=== PATIENT | female | born 1955 | race American Indian/Alaskan Native ===

== ENCOUNTER 2016-12-26 10:34 | Outpatient (CLI) | payer MEDICAID ==
--- NOTE | 2016-12-26 11:40 | XRay Report ---
KUB: Renal calculus. The patient has left unilateral pedicle screws from L4-S1 with a spacer at L5-S1. There is a surgical mesh overlying the right lower quadrant. There is moderate fecal loading of the colon which partially obscures the regions of both kidneys. No obvious renal or other urinary tract calculus however is identified. Impression: No urinary tract calculus noted.
--- NOTE | 2016-12-27 08:20 | Ultrasound Report ---
ULTRASOUND RENAL BILATERAL HISTORY: Calculus of kidney. TECHNIQUE: transabdominal ultrasound with color Doppler interrogation. FINDINGS: The right kidney measures 10.7 x 5.7 x 5.3cm. Right renal cortex: 1.9cm. The left kidney measures 9.6 x 4.8 x 4.6cm. Left renal cortex: 1.8cm. Scans of the kidneys show normal renal contours. There is normal central calyceal clustering and good preservation of the cortical thickness. There are a few scattered subcentimeter simple cortical cysts of both kidneys. No large or complex cyst. No mass. A few scattered nonobstructing calyceal stones are also suspected in both kidneys. The largest stones appear to measure 4 mm in the midpole both kidneys. No hydronephrosis or perinephric fluid. Images of the bladder and distal ureters are unremarkable. IMPRESSION: Few scattered nonobstructing calyceal stones in both kidneys. A few scattered simple cortical cysts in both kidneys measuring less than 1 cm.
== END 2016-12-26 10:35 | disposition home or self-care (01) ==
LOC: US 10:34
PROVIDERS: ATTEND Urology
DX: N20.0 Calculus of kidney (principal); I10 Essential (primary) hypertension; J40 Bronchitis, not specified as acute or chronic; Z87.891 Personal history of nicotine dependence
CPT/HCPCS: 74000; 76770

== ENCOUNTER 2018-10-26 11:09 | Emergency (ER) | payer MEDICAID, OTHER ==
[2018-10-26] MEDS ORDERED: ZOFRAN ODT ONE ×2 (11:27)
[2018-10-26] MEDS ORDERED: ZOFRAN ODT PO ONE (11:28)
[2018-10-26 11:55] LABS: Hematocrit 33.2 % (30.3-42.9); Mean Corpuscular HGB Conc 33 % (30-34); Mean Corpuscular Volume 99 fl (79-97); Platelet Count 248 K/mm3 (140-440); Red Blood Count 3.36 M/mm3 (3.65-5.03); Red Cell Distribution Width 16.2 % (13.2-15.2)
--- NOTE | 2018-10-26 12:09 | XRay Report ---
CHEST 2 VIEWS INDICATION: Productive cough and shortness of breath. COMPARISON: None similar. FINDINGS: PA and lateral chest radiographs demonstrate normal cardiomediastinal silhouette with slightly prominent lung markings, more so centrally. Clear remainder lungs without pleural effusions or CHF. Minimal fluid or thickening along the major fissures. Right chest port tip along the distal SVC. Thoracic spondylosis. CONCLUSION: No acute chest process, as described. Thank you for the opportunity to participate in this patient's care.
[2018-10-26 12:15] LABS: BUN/Creatinine Ratio 18; Blood Urea Nitrogen 20 mg/dL (7-17); Calcium 9.7 mg/dL (8.4-10.2); Hemolysis Index 3
[2018-10-26] MEDS ORDERED: PROVENTIL IH ONE (14:17)
[2018-10-26] MEDS ORDERED: TESSALON PERLES PO ONE (14:18)
--- NOTE | 2018-10-26 14:21 | Emergency Department Report ---
ED General Adult HPI - General Chief complaint: Upper Respiratory Infection Stated complaint: BRONCHITIS/CHEST PAIN Time Seen by Provider: 10/26/18 14:03 Source: patient Mode of arrival: Ambulatory Limitations: No Limitations - History of Present Illness Initial comments: This is a 63-year-old female who has a history of breast cancer. She received her last chemotherapy in 2011. She had a lumpectomy and was found to have 1 positive node. She has been cared for by Dr. DAVIS in this area. She has also a sleep apnea physician in the area in the past. She has no history of asthma COPD. She states that she is around smoke does not smoke herself. She describes her cough as recurrent nonproductive except for occasional white "spit". She denies symptoms of reflux. She is a type II diabetic. She has received an unknown antibiotic from a family physician and a "shot". She is insulin-dependent. The patient complains of multiple allergies to include tree pollen, etc. Severity scale (0 -10): 5 - Related Data Home Medications Medication Instructions Recorded Confirmed Last Taken Allopurinol 100 mg PO DAILY 10/01/13 01/21/15 10/02/13 18:00 100 MG Amlodipine Besylate 5 mg PO DAILY 10/01/13 01/21/15 10/03/13 07:00 5 MG Anastrozole (Nf) [Arimidex (Nf)] 1 mg PO DAILY 10/01/13 01/21/15 10/02/13 1 MG Calcium Carbonate [ Calcium 600 mg PO DAILY 10/01/13 01/21/15 10/02/13 Elemental 600 mg] 600 MG Famotidine 20 mg PO BID 10/01/13 01/21/15 10/02/13 20 MG Ferrous Gluconate [Ferrous 325 mg PO BID 10/01/13 01/21/15 10/02/13 Gluconate 325 MG tab] 325 MG Fluticasone Propionate [Flonase] 1 - 2 spray INNOSTRIL DAILY 10/01/13 01/21/15 10/01/13 2 SPRAYS Gabapentin 400 mg PO TID 10/01/13 01/21/15 10/02/13 400 MG Glimepiride 2 mg PO DAILY 10/01/13 01/21/15 10/02/13 20MG Losartan [Cozaar] 100 mg PO DAILY 0301/21/15 10/03/13 07:00 100 MG Metformin HCl 500 mg PO BID 10/01/13 01/21/15 10/02/13 18:00 500 MG Multivitamin/Iron/Folic Acid 1 tab PO DAILY 10/01/13 01/21/15 10/02/13 [[employer] Women's Tab] 1 TAB Oxybutynin [Oxytrol For Women] 1 patch TRANSDERMA Q72HR 10/01/13 01/21/15 09/28/13 1 PATCH cycloSPORINE [Restasis 0.05%] 2 drops OU DAILY 10/01/13 01/21/15 10/02/13 2 DROPS Albuterol Sulfate [Albuterol 0.63% 1 - 2 puff INHALATION PRN PRN 10/02/13 01/21/15 10/01/13 NEBS] 2 PUFFS Insulin Lispro Prot/Lispro 20 units SQ BID 01/27/15 01/27/15 Unknown [HumaLOG Mix 75/25 Vial] Previous Rx's Medication Instructions Recorded Last Taken Type Ciprofloxacin [Ciprofloxacin ORAL 500 mg PO Q12H #20 ml 02/03/15 Unknown Rx LIQ] Cyclobenzaprine [Flexeril 10 MG 10 mg PO Q8H PRN #60 tablet 02/03/15 Unknown Rx TAB] Losartan [Cozaar] 100 mg PO QDAY tablet 02/03/15 Unknown Rx Naloxone 0.4 mg/1 ml [Narcan 0.4 0.1 mg IV Q2MIN PRN #60 amp 02/03/15 Unknown Rx mg/1 ml] oxyCODONE /ACETAMINOPHEN [Percocet 2 tab PO Q6H PRN #60 tablet 02/03/15 Unknown Rx 5/325 mg] Benzonatate [Tessalon Perles] 100 mg PO Q8HR #30 capsule 10/26/18 Unknown Rx Cetirizine HCl [Zyrtec] 10 mg PO DAILY #30 tablet 10/26/18 Unknown Rx Allergies Allergy/AdvReac Type Severity Reaction Status Date / Time Iodinated Contrast- Oral and Allergy Severe FACE Verified 10/03/13 11:59 IV Dye SWELLING PAPER TAPE Allergy Itching, Uncoded 01/27/15 10:40 BLISTERS SKIN ED Review of Systems ROS: Stated complaint: BRONCHITIS/CHEST PAIN Other details as noted in HPI Constitutional: denies: chills, fever Eyes: denies: eye pain, eye discharge, vision change ENT: denies: ear pain, throat pain Respiratory: cough, wheezing (states occasional). denies: shortness of breath Cardiovascular: denies: chest pain, palpitations Endocrine: no symptoms reported Gastrointestinal: denies: abdominal pain, nausea, diarrhea Genitourinary: denies: urgency, dysuria, discharge Musculoskeletal: denies: back pain, joint swelling, arthralgia Skin: denies: rash, lesions Neurological: denies: headache, weakness, paresthesias Psychiatric: denies: anxiety, depression Hematological/Lymphatic: denies: easy bleeding, easy bruising ED Past Medical Hx - Past Medical History Previous Medical History?: Yes Hx Hypertension: Yes (15YRS, amlodipine and losartan) Hx Heart Attack/AMI: No Hx Diabetes: Yes (16YRS) Hx GERD: Yes Hx Liver Disease: No Hx Renal Disease: No Hx Arthritis: Yes Hx Seizures: No Hx Kidney Stones: Yes Hx Asthma: No Hx COPD: No - Surgical History Past Surgical History?: No - Social History Smoking Status: Never Smoker Substance Use Type: None - Medications Home Medications: Home Medications Medication Instructions Recorded Confirmed Last Taken Type Allopurinol 100 mg PO DAILY 10/01/13 01/21/15 10/02/13 18:00 History 100 MG Amlodipine Besylate 5 mg PO DAILY 10/01/13 01/21/15 10/03/13 07:00 History 5 MG Anastrozole (Nf) [Arimidex (Nf)] 1 mg PO DAILY 10/01/13 01/21/15 10/02/13 History 1 MG Calcium Carbonate [ Calcium 600 mg PO DAILY 10/01/13 01/21/15 10/02/13 History Elemental 600 mg] 600 MG Famotidine 20 mg PO BID 10/01/13 01/21/15 10/02/13 History 20 MG Ferrous Gluconate [Ferrous 325 mg PO BID 10/01/13 01/21/15 10/02/13 History Gluconate 325 MG tab] 325 MG Fluticasone Propionate [Flonase] 1 - 2 spray INNOSTRIL DAILY 10/01/13 01/21/15 10/01/13 History 2 SPRAYS Gabapentin 400 mg PO TID 10/01/13 01/21/15 10/02/13 History 400 MG Glimepiride 2 mg PO DAILY 10/01/13 01/21/15 10/02/13 History 20MG Losartan [Cozaar] 100 mg PO DAILY 10/01/13 01/21/15 10/03/13 07:00 History 100 MG Metformin HCl 500 mg PO BID 10/01/13 01/21/15 10/02/13 18:00 History 500 MG Multivitamin/Iron/Folic Acid 1 tab PO DAILY 10/01/13 01/21/15 10/02/13 History [[employer] Women's Tab] 1 TAB Oxybutynin [Oxytrol For Women] 1 patch TRANSDERMA Q72HR 10/01/13 01/21/15 09/28/13 History 1 PATCH cycloSPORINE [Restasis 0.05%] 2 drops OU DAILY 10/01/13 01/21/15 10/02/13 History 2 DROPS Albuterol Sulfate [Albuterol 0.63% 1 - 2 puff INHALATION PRN PRN 10/02/13 01/21/15 10/01/13 History NEBS] 2 PUFFS Insulin Lispro Prot/Lispro 20 units SQ BID 01/27/15 01/27/15 Unknown History [HumaLOG Mix 75/25 Vial] Ciprofloxacin [Ciprofloxacin ORAL 500 mg PO Q12H #20 ml 02/03/15 Unknown Rx LIQ] Cyclobenzaprine [Flexeril 10 MG 10 mg PO Q8H PRN #60 tablet 02/03/15 Unknown Rx TAB] Losartan [Cozaar] 100 mg PO QDAY tablet 02/03/15 Unknown Rx Naloxone 0.4 mg/1 ml [Narcan 0.4 0.1 mg IV Q2MIN PRN #60 amp 02/03/15 Unknown Rx mg/1 ml] oxyCODONE /ACETAMINOPHEN [Percocet 2 tab PO Q6H PRN #60 tablet 02/03/15 Unknown Rx 5/325 mg] Benzonatate [Tessalon Perles] 100 mg PO Q8HR #30 capsule 10/26/18 Unknown Rx Cetirizine HCl [Zyrtec] 10 mg PO DAILY #30 tablet 10/26/18 Unknown Rx ED Physical Exam - General Limitations: Physical Limitation General appearance: alert, in no apparent distress, obese - Head Head exam: Present: atraumatic, normocephalic - Eye Eye exam: Present: normal appearance. Absent: scleral icterus - ENT ENT exam: Present: mucous membranes moist - Neck Neck exam: Present: normal inspection - Respiratory Respiratory exam: Present: normal lung sounds bilaterally. Absent: respiratory distress - Cardiovascular Cardiovascular Exam: Present: normal rhythm, tachycardia. Absent: systolic murmur, diastolic murmur, rubs, gallop - GI/Abdominal GI/Abdominal exam: Present: soft, normal bowel sounds. Absent: distended, tenderness, guarding, rebound, rigid - Extremities Exam Extremities exam: Present: normal inspection, normal capillary refill. Absent: pedal edema, joint swelling, calf tenderness - Back Exam Back exam: Present: normal inspection - Neurological Exam Neurological exam: Present: alert, oriented X3, CN II-XII intact. Absent: motor sensory deficit - Psychiatric Psychiatric exam: Present: normal affect, normal mood - Skin Skin exam: Present: warm, dry, intact, normal color. Absent: rash ED Course Vital Signs 10/26/18 10/26/18 10/26/18 11:19 14:30 14:45 Temperature 97.9 F Pulse Rate 130 H 112 H 109 H Pulse Rate [ 111 H Anterior Bilateral Throughout] Respiratory 24 21 16 Rate Respiratory 24 Rate [Anterior Bilateral Throughout] Blood Pressure 168/83 112/70 O2 Sat by Pulse 99 99 100 Oximetry 10/26/18 10/26/18 10/26/18 14:59 15:12 15:15 Temperature Pulse Rate 102 H Pulse Rate [ 111 H Anterior Bilateral Throughout] Respiratory 22 21 Rate Respiratory 24 Rate [Anterior Bilateral Throughout] Blood Pressure 154/85 O2 Sat by Pulse 97 97 Oximetry 10/26/18 10/26/18 10/26/18 15:30 15:46 16:00 Temperature Pulse Rate 107 H 104 H Pulse Rate [ Anterior Bilateral Throughout] Respiratory 17 19 Rate Respiratory Rate [Anterior Bilateral Throughout] Blood Pressure 150/88 144/87 148/86 O2 Sat by Pulse 98 99 100 Oximetry 10/26/18 10/26/18 10/26/18 16:46 17:00 17:16 Temperature Pulse Rate 119 H 108 H 107 H Pulse Rate [ Anterior Bilateral Throughout] Respiratory 21 14 14 Rate Respiratory Rate [Anterior Bilateral Throughout] Blood Pressure O2 Sat by Pulse 100 100 99 Oximetry 10/26/18 10/26/18 17:30 17:45 Temperature Pulse Rate 106 H 106 H Pulse Rate [ Anterior Bilateral Throughout] Respiratory 11 L 16 Rate Respiratory Rate [Anterior Bilateral Throughout] Blood Pressure O2 Sat by Pulse 98 99 Oximetry - Reevaluation(s) Reevaluation #1: The patient's, cough is very chronic in nature. Notwithstanding, the patient does have a bit of an unexplained tachycardia. She does have a history of breast cancer without recurrence since 2011. I am going to proceed with a CT of her chest. 10/26/18 14:36 Reevaluation #2: Patient will complete a CT of her chest. If it is normal and she may be discharged, she will be advised to follow up with the appropriate outpatient specialists for further evaluation. 10/26/18 15:40 ED Medical Decision Making - Lab Data Result diagrams: 10/26/18 11:44 10/26/18 11:44 Laboratory Results - last 24 hr 10/26/18 10/26/18 11:44 11:44 WBC 8.1 RBC 3.36 L Hgb 11.0 Hct 33.2 MCV 99 H MCH 33 H MCHC 33 RDW 16.2 H Plt Count 248 Sodium 142 Potassium 4.4 Chloride 104.8 Carbon Dioxide 20 L Anion Gap 22 BUN 20 H Creatinine 1.1 Estimated GFR > 60 BUN/Creatinine Ratio 18 Glucose 212 H Calcium 9.7 - EKG Data EKG shows normal: sinus rhythm, axis (normal axis) Rate: tachycardia - EKG Data Interpretation: nonspecific ST-T wave jc - Radiology Data Radiology results: report reviewed (chest x-ray no acute process) No evidence for mediastinal mass or pathologic lymph node enlargement. Heart and great vessels are unremarkable. No filling defect observed within the central pulmonary vasculature to suggest presence of acute pulmonary embolus. Noted is an area of groundglass opacity within the anterior left upper lobe. Otherwise no focal pulmonary infiltrate seen. No pleural fluid collection identified No acute abnormality identified in the visualized upper abdomen IMPRESSION: Area of groundglass opacity in the left upper lobe. This is nonspecific and may be seen in a number of etiologies including pneumonitis or inflammatory etiologies. This document is electronically signed by Mart Mueller MD., October 26 2018 04:59:43 PM ET Transcribed By: [facility] Critical care attestation.: If time is entered above; I have spent that time in minutes in the direct care of this critically ill patient, excluding procedure time. ED Disposition Clinical Impression: Recurrent cough Disposition: DC-01 TO HOME OR SELFCARE Is pt being admited?: No Does the pt Need Aspirin: No Condition: Stable Instructions: Chronic Cough (ED) Additional Instructions: Further evaluation by your oncology DrKaylen DAVIS and a lung specialist is advised. Return any acute change or worsening. Rx as directed. The patient was actually discharged by Dr. Petit after review the CT findings. Prescriptions: Benzonatate [Tessalon Perles] 100 mg PO Q8HR #30 capsule Cetirizine HCl [Zyrtec] 10 mg PO DAILY #30 tablet Referrals: PRIMARY CARE, [Primary Care Provider] - 3-5 Days GAIL VALLECILLO MD [Staff Physician] - 3-5 Days Time of Disposition: 06:52
--- NOTE | 2018-10-26 17:01 | Cat Scan Report ---
PROCEDURE: CT ANGIO CHEST TECHNIQUE: CT chest CT angiogram with intravenous contrast HISTORY: cough, tachycardia, h/o breast CA COMPARISONS: FINDINGS: No evidence for mediastinal mass or pathologic lymph node enlargement. Heart and great vessels are un remarkable. No filling defect observed within the central pulmonary vasculature to suggest presence of acute pulm onary embolus. Noted is an area of groundglass opacity within the anterior left upper lobe. Otherwise no focal pulmo nary infiltrate seen. No pleural fluid collection identified No acute abnormality identified in the visualized upper abdomen IMPRESSION: Area of groundglass opacity in the left upper lobe. This is nonspecific and may be seen in a number o f etiologies including pneumonitis or inflammatory etiologies. This document is electronically signed by Mart Mueller MD., October 26 2018 04:59:43 PM ET
[2018-10-26] MEDS ORDERED: FLUSH HEPARIN IV ONE (17:41)
[2018-10-26 17:56] VITALS: BP 148/86
== END 2018-10-26 17:50 | disposition home or self-care (01) ==
LOC: ED 11:09
DX: R05 Cough (principal); I10 Essential (primary) hypertension; E11.9 Type 2 diabetes mellitus without complications; K21.9 Gastro-esophageal reflux disease without esophagitis; M19.90 Unspecified osteoarthritis, unspecified site; Z79.4 Long term (current) use of insulin; Z91.041 Radiographic dye allergy status; Z91.048 Other nonmedicinal substance allergy status
CPT/HCPCS: 36415; 71046; 71275; 80048; 85027; 93005; 93010; 94640; 96374; 99285; J1642; Q9967; Q0162

== ENCOUNTER 2018-12-24 08:44 | Outpatient (CLI) | payer MEDICAID ==
--- NOTE | 2018-12-24 11:29 | Vascular Lab Report ---
PROCEDURE: VL VENOUS DUPLEX LE RT TECHNIQUE: Duplex Doppler sonography of the right lower extremity. Foote scale imaging with and witho ut compression, spectral waveform analysis with and without augmentation, and color flow Doppler were employed. HISTORY: R LOWER LEG W PAIN TENDERNESS COMPARISONS: None FINDINGS: Deep Venous Thrombus: None Superficial Venous Thrombus: None Venous valvular incompetence: None Soft tissue abnormality: None IMPRESSION: No evidence of deep venous thrombosis. This document is electronically signed by Maddie Altamirano MD., December 24 2018 11:26:47 AM ET
== END 2018-12-24 08:45 | disposition home or self-care (01) ==
LOC: VAS 08:44
PROVIDERS: ATTEND General Practice
DX: M79.604 Pain in right leg (principal); R10.819 Abdominal tenderness, unspecified site; I10 Essential (primary) hypertension; K21.9 Gastro-esophageal reflux disease without esophagitis; E66.9 Obesity, unspecified; E11.9 Type 2 diabetes mellitus without complications; E03.9 Hypothyroidism, unspecified; Z90.710 Acquired absence of both cervix and uterus

== ENCOUNTER 2019-01-14 09:04 | Inpatient (IN) | payer MEDICAID ==
[2019-01-14] MEDS ORDERED: TESSALON PERLES PO ONE (10:00)
[2019-01-14] MEDS ORDERED: DUONEB *Not for PRN Use IH ONE (10:00)
[2019-01-14 10:14] LABS: Basophils % (Auto) 0.6 % (0.0-1.8); Eosinophils # (Auto) 0.2 K/mm3 (0.0-0.4); Eosinophils % (Auto) 4.4 % (0.0-4.3); Hematocrit 29.4 % (30.3-42.9); Hemoglobin 9.6 gm/dl (10.1-14.3); Lymphocytes # (Auto) 1.7 K/mm3 (1.2-5.4); Lymphocytes % (Auto) 33.8 % (13.4-35.0); Mean Corpuscular HGB Conc 33 % (30-34); Mean Corpuscular Volume 95 fl (79-97); Monocytes # (Auto) 0.3 K/mm3 (0.0-0.8); Monocytes % (Auto) 6.1 % (0.0-7.3); Platelet Count 261 K/mm3 (140-440); Red Blood Count 3.11 M/mm3 (3.65-5.03); Red Cell Distribution Width 15.5 % (13.2-15.2)
--- NOTE | 2019-01-14 10:18 | Emergency Department Report ---
HPI - General Chief Complaint: Dyspnea/Respdistress Time Seen by Provider: 01/14/19 09:47 - HPI HPI: 63-year-old female presents to the emergency department presents to the emergency department with a complaint of generalized weakness, fatigue, SOB, chest tightness and a mixed dry and productive cough. Overall, the patient says that the symptoms are going on since last September and she says that she has been to this facility and her primary care physician multiple times for evaluation of these symptoms. She has a past medical history arthritis, diabetes, GERD, hypertension. Patient says that she is out of any previous inhaler or nebulizer treatments that she was previously prescribed. No recent travel or sick contacts at home. She denies any chest pain, back pain, nausea, lower extremity swelling, vomiting or diaphoresis. ED Past Medical Hx - Past Medical History Previous Medical History?: Yes Hx Hypertension: Yes (15YRS, amlodipine and losartan) Hx Heart Attack/AMI: No Hx Diabetes: Yes (16YRS) Hx GERD: Yes Hx Liver Disease: No Hx Renal Disease: No Hx Arthritis: Yes Hx Seizures: No Hx Kidney Stones: Yes Hx Asthma: No Hx COPD: No - Social History Smoking Status: Former Smoker Substance Use Type: None - Medications Home Medications: Home Medications Medication Instructions Recorded Confirmed Last Taken Type Allopurinol 100 mg PO DAILY 10/01/13 01/21/15 10/02/13 18:00 History 100 MG Amlodipine Besylate 5 mg PO DAILY 10/01/13 01/21/15 10/03/13 07:00 History 5 MG Anastrozole (Nf) [Arimidex (Nf)] 1 mg PO DAILY 10/01/13 01/21/15 10/02/13 Histor y 1 MG Calcium Carbonate [ Calcium 600 mg PO DAILY 10/01/13 01/21/15 10/02/13 History Elemental 600 mg] 600 MG Famotidine 20 mg PO BID 10/01/13 01/21/15 10/02/13 History 20 MG Ferrous Gluconate [Ferrous 325 mg PO BID 10/01/13 01/21/15 10/02/13 History Gluconate 325 MG tab] 325 MG Fluticasone Propionate [Flonase] 1 - 2 spray INNOSTRIL DAILY 10/01/13 01/21/15 10/01/13 History 2 SPRAYS Gabapentin 400 mg PO TID 10/01/13 01/21/15 10/02/13 History 400 MG Glimepiride 2 mg PO DAILY 10/01/13 01/21/15 10/02/13 History 20MG Losartan [Cozaar] 100 mg PO DAILY 10/01/13 01/21/15 10/03/13 07:00 History 100 MG Metformin HCl 500 mg PO BID 10/01/13 01/21/15 10/02/13 18:00 History 500 MG Multivitamin/Iron/Folic Acid 1 tab PO DAILY 10/01/13 01/21/15 10/02/13 History [[employer] Women's Tab] 1 TAB Oxybutynin [Oxytrol For Women] 1 patch TRANSDERMA Q72HR 10/01/13 01/21/15 09/28/13 History 1 PATCH cycloSPORINE [Restasis 0.05%] 2 drops OU DAILY 10/01/13 01/21/15 10/02/13 History 2 DROPS Albuterol Sulfate [Albuterol 0.63% 1 - 2 puff INHALATION PRN PRN 10/02/13 01/21/15 10/01/13 History NEBS] 2 PUFFS Insulin Lispro Prot/Lispro 20 units SQ BID 01/27/15 01/27/15 Unknown History [HumaLOG Mix 75/25 Vial] Ciprofloxacin [Ciprofloxacin ORAL 500 mg PO Q12H #20 ml 02/03/15 Unknown Rx LIQ] Cyclobenzaprine [Flexeril 10 MG 10 mg PO Q8H PRN #60 tablet 02/03/15 Unknown Rx TAB] Losartan [Cozaar] 100 mg PO QDAY tablet 02/03/15 Unknown Rx Naloxone 0.4 mg/1 ml [Narcan 0.4 0.1 mg IV Q2MIN PRN #60 amp 02/03/15 Unknown Rx mg/1 ml] oxyCODONE /ACETAMINOPHEN [Percocet 2 tab PO Q6H PRN #60 tablet 02/03/15 Unknown Rx 5/325 mg] Benzonatate [Tessalon Perles] 100 mg PO Q8HR #30 capsule 10/26/18 Unknown Rx Cetirizine HCl [Zyrtec] 10 mg PO DAILY #30 tablet 10/26/18 Unknown Rx ED Review of Systems ROS: Stated complaint: WEAK/OUT OF BREATH Other details as noted in HPI Comment: All other systems reviewed and negative Constitutional: weakness, other (fatigue). denies: chills, fever Eyes: denies: eye pain, vision change ENT: denies: ear pain, throat pain Respiratory: cough. denies: orthopnea Cardiovascular: denies: chest pain, edema Gastrointestinal: denies: abdominal pain, vomiting Genitourinary: denies: dysuria, frequency Musculoskeletal: denies: back pain, arthralgia Skin: denies: rash, lesions Neurological: denies: headache, weakness Physical Exam - Physical Exam Vital Signs: Vital Signs 01/14/19 01/14/19 09:06 09:40 Temperature 97.9 F Pulse Rate 126 H Respiratory 22 18 Rate Blood Pressure 113/63 O2 Sat by Pulse 100 95 Oximetry Physical Exam: GENERAL: The patient is well-developed well-nourished. HENT: Normocephalic. Atraumatic. Patient has moist mucous membranes. EYES: Extraocular motions are intact. Pupils equal reactive to light bilaterally. NECK: Supple. Trachea is midline. CHEST/LUNGS: Mild expiratory wheezing. Mild coarse breath sounds. No tachypnea or accessory muscle use. There is no respiratory distress noted. HEART/CARDIOVASCULAR: Regular. There is mild tachycardia. There is no murmur. ABDOMEN: Abdomen is soft, nontender. Patient has normal bowel sounds. Morbidly obese habitus. SKIN: Skin is warm and dry. Mild b/l LE edema. NEURO: The patient is awake, alert, and oriented. The patient is cooperative. The patient has no focal neurologic deficits. The patient has normal speech. MUSCULOSKELETAL: There is no tenderness or deformity. There is no evidence of acute injury. ED Course Vital Signs 01/14/19 01/14/19 09:06 09:40 Temperature 97.9 F Pulse Rate 126 H Respiratory 22 18 Rate Blood Pressure 113/63 O2 Sat by Pulse 100 95 Oximetry ED Medical Decision Making - Lab Data Result diagrams: 01/14/19 10:01 01/14/19 10:01 - EKG Data -: EKG Interpreted by Me EKG shows normal: sinus rhythm, axis (left axis deviation), intervals (prolonged QTC), QRS complexes, ST-T waves Rate: tachycardia (110 bpm) - EKG Data When compared to previous EKG there are: no significant change Interpretation: unchanged when compared t (10/26/18) - Radiology Data Radiology results: report reviewed, image reviewed interpreted by me: Chest x-ray does not show any acute process. There are no pleural effusions, obvious pneumonia and there is no pneumothorax. VENTILATION PERFUSION PULMONARY SCINTIGRAPHY HISTORY: Shortness of breath and elevated d-dimer COMPARISON: A same day chest radiograph. TECHNIQUE: Radiopharmaceutical was inhaled. Tc-99m-MAA was then injected. Ventilation and perfusion images were acquired. RADIOPHARMACEUTICAL: 20.2 mCi of Xe-133 inhaled 5.0 mCi of Tc-99m-MAA injected FINDINGS: VENTILATION: No significant air trapping or defect. PERFUSION: No significant segmental or non-segmental defect. Additional Findings: None. IMPRESSION: 1. Low probability for pulmonary embolism. - Medical Decision Making This patient presents to the emergency department with a complaint of some generalized weakness, fatigue, lingering cough, chest tightness and some shortness of breath. EKG does not show any signs of ST elevation ID, ischemia or dysrhythmia. The patient's labs show some mild hyperglycemia with a blood sugar of 216, a very elevated d-dimer and elevated BNP level of greater than 5000. She has very mild bilateral lower extremity swelling. The patient was given a breathing treatment, and cough medication. She had a ventilation perfusion scan that came back low probability for pulmonary embolism. First troponin negative. However the patient still complains of chest tightness and this lingering cough. She will be admitted to the hospital for further evaluation and treatment and was accepted for admission by the hospitalist, Dr. Zimmerman. - Differential Diagnosis CHF, PE, COPD, Pneumonia, ID Critical Care Time: No Critical care attestation.: If time is entered above; I have spent that time in minutes in the direct care of this critically ill patient, excluding procedure time. ED Disposition Clinical Impression: Chest tightness Dyspnea Qualifiers: Dyspnea type: shortness of breath Qualified Code(s): R06.02 - Shortness of breath; R06.00 - Dyspnea, unspecified; R06.01 - Orthopnea CHF (congestive heart failure) Qualifiers: Heart failure type: unspecified Heart failure chronicity: unspecified Qualified Code(s): I50.9 - Heart failure, unspecified Disposition: OP ADMIT IP TO THIS HOSP Is pt being admited?: Yes Condition: Fair Referrals: BLAKE POLLACK MD [Primary Care Provider] - 3-5 Days Time of Disposition: 14:41
--- NOTE | 2019-01-14 10:42 | XRay Report ---
CHEST 2 VIEWS INDICATION: cough. Weakness, shortness of breath. COMPARISON: 01/14/2019 FINDINGS: Support devices: A right subclavian [id number] terminates in the lower SVC Heart: Within normal limits. Lungs/pleura: No acute air space or interstitial disease. No pneumothorax. Additional findings: None. IMPRESSION: 1. No acute cardiopulmonary process. No change since 01/14/2019. Signer Name: Matt Rosa Jr, MD Signed: 01/14/2019 10:37 AM Workstation Name: [id number]
[2019-01-14 11:00] LABS: Alanine Aminotransferase 14 units/L (7-56); Albumin 3.3 g/dL (3.9-5); BUN/Creatinine Ratio 19; Blood Urea Nitrogen 21 mg/dL (7-17); Calcium 9.7 mg/dL (8.4-10.2); Hemolysis Index 1
--- NOTE | 2019-01-14 13:15 | Nuclear Medicine Report ---
VENTILATION PERFUSION PULMONARY SCINTIGRAPHY HISTORY: Shortness of breath and elevated d-dimer COMPARISON: A same day chest radiograph. TECHNIQUE: Radiopharmaceutical was inhaled. Tc-99m-MAA was then injected. Ventilation and perfusion images were acquired. RADIOPHARMACEUTICAL: 20.2 mCi of Xe-133 inhaled 5.0 mCi of Tc-99m-MAA injected FINDINGS: VENTILATION: No significant air trapping or defect. PERFUSION: No significant segmental or non-segmental defect. Additional Findings: None. IMPRESSION: 1. Low probability for pulmonary embolism. Signer Name: Benny Jaramillo MD Signed: 01/14/2019 1:11 PM Workstation Name: [id number]
--- NOTE | 2019-01-14 16:59 | History and Physical Report ---
History of Present Illness Date of examination: 01/14/19 Date of admission: 01/14/19 Chief complaint: Chest tightness 1 day History of present illness: 63-year-old female with pmh of Htn T2dm PN Gerd Aemia and Arthritis presents to the emergency department presents to the ER with a complaint of generalized weakness, fatigue, SOB, chest tightness and a mixed dry and productive cough. Overall, the patient says that the symptoms are going on since last September and she says that she has been to this facility and her primary care physician multiple times for evaluation of these symptoms. Patient says that she is out of previous inhaler or nebulizer treatments that she was previously prescribed. No recent travel or sick contacts at home. Chest tightness is 6/10 and intermittent.No exacerbating or relieving factors. Past Medical History Previous Medical History?: Yes Hypertension: Yes (15YRS, amlodipine and losartan) Diabetes: Yes (16YRS) GERD: Yes Arthritis: Yes Kidney Stones: Yes Surgical History N/A Social History Smoking Status: Former Smoker Substance Use Type: None Family History Htn Review of Systems ROS: Stated complaint: WEAK/OUT OF BREATH Other details as noted in HPI Comment: All other systems reviewed and negative Constitutional: weakness, other (fatigue). denies: chills, fever Eyes: denies: eye pain, vision change ENT: denies: ear pain, throat pain Respiratory: cough. denies: orthopnea Cardiovascular: denies: chest pain, edema Gastrointestinal: denies: abdominal pain, vomiting Genitourinary: denies: dysuria, frequency Musculoskeletal: denies: back pain, arthralgia Skin: denies: rash, lesions Neurological: denies: headache, weakness Medications and Allergies Allergies Allergy/AdvReac Type Severity Reaction Status Date / Time Iodinated Contrast- Oral and Allergy Severe FACE Verified 10/03/13 11:59 IV Dye SWELLING PAPER TAPE Allergy Itching, Uncoded 01/27/15 10:40 BLISTERS SKIN Home Medications Medication Instructions Recorded Confirmed Last Taken Type Famotidine 20 mg PO BID 10/01/13 01/14/19 10/02/13 History 20 MG Fluticasone Propionate [Flonase] 2 spray INNOSTRIL DAILY 10/01/13 01/14/19 10/01/13 History 2 SPRAYS Metformin HCl 1,000 mg PO BIDPC 03/01/14/19 10/02/13 18:00 History 500 MG cycloSPORINE [Restasis 0.05%] 1 drop OU BID 10/01/13 01/14/19 10/02/13 History 2 DROPS Albuterol Sulfate [Proventil Hfa] 2 puff IH Q6H PRN 01/14/19 01/14/19 Unknown History Allopurinol [Zyloprim] 300 mg PO QDAY 01/14/19 01/14/19 Unknown History Amitriptyline [Elavil] 25 mg PO DAILY 01/14/19 01/14/19 Unknown History AtorvaSTATin [Lipitor] 20 mg PO DAILY 01/14/19 01/14/19 Unknown History Diclofenac 1% [Diclofenac 1% 1 applic TP BID 01/14/19 01/14/19 Unknown History topical gel] Gabapentin [Neurontin] 300 mg PO TID 01/14/19 01/14/19 Unknown History Insulin Lispro Protamin/Lispro 40 units SUB-Q QAM 01/14/19 01/14/19 Unknown History [Humalog Mix 75-25 Vial] Insulin Lispro Protamin/Lispro 50 units SUB-Q QPM 01/14/19 01/14/19 Unknown History [Humalog Mix 75-25 Vial] Levothyroxine [Synthroid] 112 mcg PO QDAY 01/14/19 01/14/19 Unknown History Losartan Potassium 100 mg PO QDAY 01/14/19 01/14/19 Unknown History Megestrol [Megace] 40 mg PO QID 01/14/19 01/14/19 Unknown History [place]-3S/Dha/Epa/Fish Oil [[place]-3 1 each PO DAILY 01/14/19 01/14/19 Unknown History Fish Oil 1,000 mg Sfgl] Oxybutynin [Ditropan] 5 mg PO HS 01/14/19 01/14/19 Unknown History Spironolactone [Aldactone] 25 mg PO QDAY 01/14/19 01/14/19 Unknown History Sucralfate [Carafate] 1 gm PO BID 01/14/19 01/14/19 Unknown History Venlafaxine [Effexor] 75 mg PO QDAY 01/14/19 01/14/19 Unknown History glipiZIDE [Glucotrol] 5 mg PO QDAY 01/14/19 01/14/19 Unknown History Exam - Constitutional Vitals: Temp Pulse Resp BP Pulse Ox 97.9 F 113 H 16 135/87 100 01/14/19 09:06 01/14/19 15:30 01/14/19 15:30 01/14/19 15:30 01/14/19 15:30 General appearance: Present: no acute distress, well-nourished - EENT Eyes: Present: PERRL ENT: hearing intact, clear oral mucosa - Neck Neck: Present: supple, normal ROM - Respiratory Respiratory effort: normal Respiratory: bilateral: CTA - Cardiovascular Heart rate: 100 Rhythm: regular Heart Sounds: Present: S1 & S2. Absent: rub, click - Extremities Extremities: no ischemia, pulses intact, pulses symmetrical, No edema Peripheral Pulses: within normal limits - Abdominal General gastrointestinal: Present: soft, non-tender, non-distended, normal bowel sounds Female genitourinary: Present: normal - Rectal Rectal Exam: deferred - Integumentary Integumentary: Present: clear, warm, dry - Musculoskeletal Musculoskeletal: gait normal, strength equal bilaterally - Psychiatric Psychiatric: appropriate mood/affect, intact judgment & insight - Neurologic Neurologic: CNII-XII intact, moves all extremities - Allied Health Allied health notes reviewed: nursing, case management Results - Labs CBC & Chem 7: 01/14/19 10:01 01/14/19 10:01 Labs: Laboratory Last Values WBC 5.0 K/mm3 (4.5-11.0) 01/14/19 10:01 RBC 3.11 M/mm3 (3.65-5.03) L 01/14/19 10:01 Hgb 9.6 gm/dl (10.1-14.3) L 01/14/19 10:01 Hct 29.4 % (30.3-42.9) L 01/14/19 10:01 MCV 95 fl (79-97) 01/14/19 10:01 MCH 31 pg (28-32) 01/14/19 10:01 MCHC 33 % (30-34) 01/14/19 10:01 RDW 15.5 % (13.2-15.2) H 01/14/19 10:01 Plt Count 261 K/mm3 (140-440) 01/14/19 10:01 Lymph % (Auto) 33.8 % (13.4-35.0) 01/14/19 10:01 [place] % (Auto) 6.1 % (0.0-7.3) 01/14/19 10:01 Eos % (Auto) 4.4 % (0.0-4.3) H 01/14/19 10:01 Baso % (Auto) 0.6 % (0.0-1.8) 01/14/19 10:01 Lymph # 1.7 K/mm3 (1.2-5.4) 01/14/19 10:01 [place] # 0.3 K/mm3 (0.0-0.8) 01/14/19 10:01 Eos # 0.2 K/mm3 (0.0-0.4) 01/14/19 10:01 Baso # 0.0 K/mm3 (0.0-0.1) 01/14/19 10:01 Seg Neutrophils % 55.1 % (40.0-70.0) 01/14/19 10:01 Seg Neutrophils # 2.8 K/mm3 (1.8-7.7) 01/14/19 10:01 1253.60 ng/mlDDU (0-234) H 01/14/19 10:01 Sodium 140 mmol/L (137-145) 01/14/19 10:01 Potassium 4.5 mmol/L (3.6-5.0) 01/14/19 10:01 Chloride 107.8 mmol/L (98-107) H 01/14/19 10:01 Carbon Dioxide 19 mmol/L (22-30) L 01/14/19 10:01 18 mmol/L 01/14/19 10:01 BUN 21 mg/dL (7-17) H 01/14/19 10:01 1.1 mg/dL (0.7-1.2) 01/14/19 10:01 Estimated GFR > 60 ml/min 01/14/19 10:01 19 % 01/14/19 10:01 Glucose 216 mg/dL (65-100) H 01/14/19 10:01 Calcium 9.7 mg/dL (8.4-10.2) 01/14/19 10:01 0.30 mg/dL (0.1-1.2) 01/14/19 10:01 AST 12 units/L (5-40) 01/14/19 10:01 ALT 14 units/L (7-56) 01/14/19 10:01 98 units/L (35-129) 01/14/19 10:01 < 0.010 ng/mL (0.00-0.029) 01/14/19 10:01 NT-Pro-B Natriuret Pep 5505 pg/mL (0-900) H 01/14/19 10:01 7.8 g/dL (6.3-8.2) 01/14/19 10:01 3.3 g/dL (3.9-5) L 01/14/19 10:01 0.7 % 01/14/19 10:01 TSH 1.710 mlU/mL (0.270-4.200) 01/14/19 10:01 - Imaging and Cardiology EKG: report reviewed Chest x-ray: report reviewed Imaging and Cardiology: EKG Data -: EKG Interpreted by Oh EKG shows normal: sinus rhythm, axis (left axis deviation), intervals (prolonged QTC), QRS complexes, ST-T waves Rate: tachycardia (110 bpm) EKG Data When compared to previous EKG there are: no significant change Interpretation: unchanged when compared t (10/26/18) Radiology Data 1. CXR Radiology results: report reviewed, image reviewed NAF 2.VENTILATION PERFUSION PULMONARY SCINTIGRAPHY IMPRESSION: 1. Low probability for pulmonary embolism. Assessment and Plan Advance Directives: Yes (Full code) VTE prophylaxis?: Chemical Plan of care discussed with patient/family: Yes - Patient Problems (1) Chest pain Current Visit: Yes Status: Acute Qualifiers: Chest pain type: unspecified Qualified Code(s): R07.9 - Chest pain, unspecified Plan to address problem: Admitted for Obs status Serial troponins and Lexiscan in AM Costochondritis sec to cough To stop Losartan (2) Cough due to ZACHARY inhibitor Current Visit: Yes Status: Chronic Plan to address problem: Cough for 4 months Probably sec to Losartan Patient to be counselled about Losartan by primary team---Not to take any ACEI or ARB's in future CCB presribed (3) HTN (hypertension) Current Visit: Yes Status: Chronic Qualifiers: Hypertension type: essential hypertension Qualified Code(s): I10 - Essential (primary) hypertension Plan to address problem: Cont antihypertensives except ARB's (4) IDDM (insulin dependent diabetes mellitus) Current Visit: Yes Status: Chronic Plan to address problem: Cont home insulin and coverage (5) Anemia Current Visit: Yes Status: Chronic Qualifiers: Anemia type: unspecified type Qualified Code(s): D64.9 - Anemia, unspecified Plan to address problem: Anemia workup ordered (6) OAB (overactive bladder) Current Visit: Yes Status: Chronic Plan to address problem: Cont vesicare (7) Hypothyroidism Current Visit: Yes Status: Chronic Qualifiers: Hypothyroidism type: acquired Qualified Code(s): E03.9 - Hypothyroidism, unspecified Plan to address problem: Cont synthyroid and check TSH (8) GERD (gastroesophageal reflux disease) Current Visit: Yes Status: Chronic Qualifiers: Esophagitis presence: with esophagitis Qualified Code(s): K21.0 - Gastro- esophageal reflux disease with esophagitis Plan to address problem: COnt PPI's for atleast 6 months Cough maybe sec to reflux (9) DVT prophylaxis Current Visit: Yes Status: Acute Plan to address problem: On Lovenox and GI prophylaxis
[2019-01-14] MEDS ORDERED: PROAIR IH PRN (17:00)
[2019-01-14] MEDS ORDERED: OMEGA PO SCH (17:15)
[2019-01-14] MEDS ORDERED: DHA PO SCH (17:15)
[2019-01-14] MEDS ORDERED: EPA PO SCH (17:15)
[2019-01-14] MEDS ORDERED: FISH OIL PO SCH (17:15)
[2019-01-14] MEDS ORDERED: NON-FORMULARY (Losartan Potassium [Losartan Potassium] 100 MG) PO SCH (17:15)
[2019-01-14] MEDS ORDERED: PERCOCET 5/325 PO PRN (17:20)
[2019-01-14] MEDS ORDERED: SODIUM CHLORIDE FLUSH SYRINGE 10 ML IV PRN (17:20)
[2019-01-14] MEDS ORDERED: TYLENOL PO PRN (17:20)
[2019-01-14] MEDS ORDERED: DILAUDID IV PRN (17:20)
[2019-01-14] MEDS ORDERED: ZOFRAN IV PRN (17:20)
[2019-01-14] MEDS ORDERED: INSULIN LISPRO PROTAMIN SUB-Q SCH (18:00)
[2019-01-14] MEDS ORDERED: LISPRO SUB-Q SCH (18:00)
[2019-01-14] MEDS ORDERED: PROVENTIL IH PRN (18:01)
[2019-01-14] MEDS ORDERED: HumaLOG SUB-Q ONE ×2 (18:31→22:45)
[2019-01-14] MEDS ORDERED: COZAAR PO SCH (20:00)
[2019-01-14] MEDS ORDERED: LOVENOX SUB-Q ONE (20:00)
[2019-01-14] MEDS ORDERED: COZAAR ONE (20:01)
[2019-01-14] MEDS ORDERED: NEURONTIN ONE (20:03)
[2019-01-14] MEDS ORDERED: GLUCOPHAGE ONE (20:03)
[2019-01-14] MEDS: LOVENOX SUB-Q SCH (20:08)
[2019-01-14] MEDS: ALDACTONE PO SCH (20:08)
[2019-01-14] MEDS: FLONASE NS SCH (20:08)
[2019-01-14] MEDS: SYNTHROID PO SCH (20:08)
[2019-01-14] MEDS: NEURONTIN PO SCH (20:09)
[2019-01-14] MEDS: FISH OIL PO SCH (20:09)
[2019-01-14] MEDS: GLUCOPHAGE PO SCH (20:09)
[2019-01-14] MEDS: ZYLOPRIM PO SCH (20:10)
[2019-01-14] MEDS ORDERED: PEPCID PO SCH (22:00)
[2019-01-14] MEDS ORDERED: NON-FORMULARY (Cyclosporine [Restasis 0.05%] 1 DROP) OU SCH (22:00)
[2019-01-14] MEDS: ELAVIL PO SCH (22:20)
[2019-01-14] MEDS: EFFEXOR PO SCH (22:22)
[2019-01-14] MEDS: SODIUM CHLORIDE FLUSH SYRINGE 10 ML IV SCH (22:22)
[2019-01-14] MEDS: GLUCOTROL PO SCH (22:52)
[2019-01-14] MEDS: CARAFATE PO SCH (22:52)
[2019-01-14] MEDS: DITROPAN PO SCH (22:53)
[2019-01-14] MEDS: MEGACE PO SCH (22:53)
[2019-01-14] MEDS: DICLOFENAC 1% TP SCH (22:55)
[2019-01-15] MEDS: SYNTHROID PO SCH (06:27)
[2019-01-15 06:54] LABS: Basophils % (Auto) 0.7 % (0.0-1.8); Eosinophils # (Auto) 0.3 K/mm3 (0.0-0.4); Eosinophils % (Auto) 5.4 % (0.0-4.3); Hematocrit 28.5 % (30.3-42.9); Hemoglobin 9.4 gm/dl (10.1-14.3); Lymphocytes # (Auto) 1.7 K/mm3 (1.2-5.4); Mean Corpuscular HGB Conc 33 % (30-34); Mean Corpuscular Volume 94 fl (79-97); Monocytes # (Auto) 0.4 K/mm3 (0.0-0.8); Monocytes % (Auto) 7.7 % (0.0-7.3); Platelet Count 253 K/mm3 (140-440); Red Blood Count 3.02 M/mm3 (3.65-5.03); Red Cell Distribution Width 15.6 % (13.2-15.2)
[2019-01-15 07:44] LABS: Alanine Aminotransferase 13 units/L (7-56); Albumin 3.2 g/dL (3.9-5); BUN/Creatinine Ratio 22; Blood Urea Nitrogen 20 mg/dL (7-17); Calcium 9.1 mg/dL (8.4-10.2); Hemolysis Index 1
[2019-01-15] MEDS ORDERED: INSULIN LISPRO PROTAMIN SUB-Q SCH (10:00)
[2019-01-15] MEDS ORDERED: LISPRO SUB-Q SCH (10:00)
[2019-01-15] MEDS: CARAFATE PO SCH ×2 (10:42→21:27)
[2019-01-15] MEDS: FISH OIL PO SCH (10:42)
[2019-01-15] MEDS: ZYLOPRIM PO SCH (10:42)
[2019-01-15] MEDS: NORVASC PO SCH (10:42)
[2019-01-15] MEDS: EFFEXOR PO SCH (10:42)
[2019-01-15] MEDS: GLUCOTROL PO SCH (10:42)
[2019-01-15] MEDS: PROTONIX PO SCH (10:43)
[2019-01-15] MEDS: ELAVIL PO SCH (10:43)
[2019-01-15] MEDS: ALDACTONE PO SCH (10:43)
[2019-01-15] MEDS: COREG PO SCH ×2 (10:43→21:28)
[2019-01-15] MEDS: MEGACE PO SCH ×4 (10:44→21:28)
[2019-01-15] MEDS: FLONASE NS SCH (10:44)
[2019-01-15] MEDS: LOVENOX SUB-Q SCH (10:45)
[2019-01-15] MEDS: DICLOFENAC 1% TP SCH ×2 (10:45→21:27)
[2019-01-15] MEDS: NEURONTIN PO SCH ×3 (10:49→21:27)
[2019-01-15] MEDS: GLUCOPHAGE PO SCH ×2 (10:51→18:07)
[2019-01-15] MEDS ORDERED: PNEUMOVAX 23 IM ONE (12:00)
[2019-01-15] MEDS: SODIUM CHLORIDE FLUSH SYRINGE 10 ML IV SCH ×2 (13:59→21:28)
--- NOTE | 2019-01-15 14:15 | Progress Note ---
Assessment and Plan / Acute Chest pain Serial troponins negative, Lexiscan in AM - cannot do today as she had VQ scan yesterday Costochondritis sec to cough, To stop Losartan VQ scan was low probability for PE / Cough due to ZACHARY inhibitor Cough for 4 months Probably sec to Losartan Patient to be counselled about Losartan by primary team---Not to take any ACEI or ARB's in future CCB presribed /Acute bronchitis, place on zithromax and nebs / HTN (hypertension) Cont antihypertensives except ARB's / IDDM (insulin dependent diabetes mellitus) Cont home insulin and coverage / Anemia Anemia workup ordered / OAB (overactive bladder) Cont vesicare / Hypothyroidism Cont synthyroid and check TSH / GERD (gastroesophageal reflux disease) COnt PPI's for atleast 6 months Cough maybe sec to reflux /Personal h/o smoking with 2nd hand exposure - counselled /DVT prophylaxis On Lovenox and GI prophylaxis Brief history: 63-year-old female with pmh of Htn T2dm Gerd Aemia and Arthritis presents to the emergency department presents to the ER with a complaint of generalized weakness, fatigue, SOB, chest tightness and a mixed dry and productive cough. Hospitalist physical GENERAL: well-developed and morbidly obese elderly -[place] female lying on bed appeared to be in no discomfort. HEENT: Normocephalic. Atraumatic. No conjunctival congestion or icterus. Pa tient has moist mucous membranes. NECK: Supple. Trachea midline. CHEST/LUNGS: Diminished breath sounds auscultated bilaterally, breathing nonlabored. No wheezes crackles or rhonchi. HEART/CARDIOVASCULAR: Regular in rate and rhythm. S1 and S2 positive. ABDOMEN: Abdomen is soft, nontender. Patient has normal bowel sounds. SKIN: There is no rash. Warm and dry. NEURO: No focal motor deficit. Follows command. MUSCULOSKELETAL: No joint effusion or tenderness. EXTRIMITY: No edema, no cyanosis or clubbing. PSYCH: Cooperative. Subjective Date of service: 01/15/19 Interval history: Patient seen and examined. Medical records and medication list reviewed. No acute event overnight noted by the RN. Patient complains of intermittent chest pain and difficulty breathing on minimum exertion. Patient is tolerating diet. Discussed plan of care at bedside with patient. Objective - Constitutional Vitals: Vital Signs - 12hr 01/15/19 01/15/19 01/15/19 04:23 09:26 11:59 Temperature 98.0 F 98.7 F 97.9 F Pulse Rate 109 H 107 H 108 H Respiratory 18 18 18 Rate Blood Pressure 112/78 107/58 107/72 O2 Sat by Pulse 100 91 99 Oximetry - Labs CBC & Chem 7: 01/15/19 06:34 01/15/19 06:34 Labs: Abnormal lab results 01/14/19 01/14/19 01/14/19 Range/Units 19:08 21:20 21:42 RBC (3.65-5.03) M/mm3 Hgb (10.1-14.3) gm/dl Hct (30.3-42.9) % RDW (13.2-15.2) % Lymph % (Auto) (13.4-35.0) % [place] % (Auto) (0.0-7.3) % Eos % (Auto) (0.0-4.3) % Chloride (98-107) mmol/L Carbon Dioxide (22-30) mmol/L BUN (7-17) mg/dL Glucose (65-100) mg/dL POC Glucose 328 H 367 H (70-105) Hemoglobin A1c 9.1 H (4-6) % TIBC (250-450) mcg/dL Albumin (3.9-5) g/dL Vitamin B12 (211-911) pg/mL 01/15/19 01/15/19 01/15/19 Range/Units 06:34 06:34 06:34 RBC 3.02 L (3.65-5.03) M/mm3 Hgb 9.4 L (10.1-14.3) gm/dl Hct 28.5 L (30.3-42.9) % RDW 15.6 H (13.2-15.2) % Lymph % (Auto) 36.0 H (13.4-35.0) % [place] % (Auto) 7.7 H (0.0-7.3) % Eos % (Auto) 5.4 H (0.0-4.3) % Chloride 107.6 H (98-107) mmol/L Carbon Dioxide 18 L (22-30) mmol/L BUN 20 H (7-17) mg/dL Glucose 202 H (65-100) mg/dL POC Glucose (70-105) Hemoglobin A1c (4-6) % TIBC 247 L (250-450) mcg/dL Albumin 3.2 L (3.9-5) g/dL Vitamin B12 (211-911) pg/mL 01/15/19 01/15/19 01/15/19 Range/Units 06:34 08:43 12:09 RBC (3.65-5.03) M/mm3 Hgb (10.1-14.3) gm/dl Hct (30.3-42.9) % RDW (13.2-15.2) % Lymph % (Auto) (13.4-35.0) % [place] % (Auto) (0.0-7.3) % Eos % (Auto) (0.0-4.3) % Chloride (98-107) mmol/L Carbon Dioxide (22-30) mmol/L BUN (7-17) mg/dL Glucose (65-100) mg/dL POC Glucose 207 H 208 H (70-105) Hemoglobin A1c (4-6) % TIBC (250-450) mcg/dL Albumin (3.9-5) g/dL Vitamin B12 979.7 H (211-911) pg/mL
[2019-01-15] MEDS: DUONEB *Not for PRN Use IH SCH ×2 (17:23→20:27)
[2019-01-15] MEDS: DELTASONE PO SCH (18:07)
[2019-01-15] MEDS: ZITHROMAX PO SCH (18:07)
[2019-01-15] MEDS: DITROPAN PO SCH (21:28)
[2019-01-16] MEDS: DUONEB *Not for PRN Use IH SCH ×4 (01:54→19:50)
[2019-01-16] MEDS: SYNTHROID PO SCH (05:35)
[2019-01-16] MEDS ORDERED: LEXISCAN IV ONE (10:30)
[2019-01-16] MEDS: EFFEXOR PO SCH (13:46)
[2019-01-16] MEDS: GLUCOTROL PO SCH (13:46)
[2019-01-16] MEDS: MEGACE PO SCH ×4 (13:46→21:29)
[2019-01-16] MEDS: NEURONTIN PO SCH ×3 (13:46→21:30)
[2019-01-16] MEDS: CARAFATE PO SCH ×2 (13:46→21:29)
[2019-01-16] MEDS: ELAVIL PO SCH (13:46)
[2019-01-16] MEDS: ALDACTONE PO SCH (13:46)
[2019-01-16] MEDS: LOVENOX SUB-Q SCH (13:47)
[2019-01-16] MEDS: DELTASONE PO SCH (13:47)
[2019-01-16] MEDS: COREG PO SCH ×2 (13:47→21:30)
[2019-01-16] MEDS: FLONASE NS SCH (13:47)
[2019-01-16] MEDS: GLUCOPHAGE PO SCH ×2 (13:47→18:45)
[2019-01-16] MEDS: ZYLOPRIM PO SCH (13:47)
[2019-01-16] MEDS: FISH OIL PO SCH (13:47)
[2019-01-16] MEDS: DICLOFENAC 1% TP SCH ×2 (13:49→21:29)
--- NOTE | 2019-01-16 14:35 | Progress Note ---
Assessment and Plan / Acute Chest pain, likely from costochondritis versus GERD Serial troponins negative, Lexiscan in AM was normal but showed EF of 20% VQ scan was low probability for PE /Possible new onset CHF - Order 2-D echo, consult cardiology - Stress test did not show any reversible ischemia but showed EF of 20% - Continue to monitor in's and O's, daily weight / Cough due to ZACHARY inhibitor Cough for 4 months Probably sec to Losartan Patient to be counselled about Losartan by primary team---Not to take any ACEI or ARB's in future CCB presribed /Acute bronchitis, place on zithromax and nebs / HTN (hypertension) Cont antihypertensives except ARB's / IDDM (insulin dependent diabetes mellitus) Cont home insulin and coverage / Anemia Anemia workup ordered / OAB (overactive bladder) Cont vesicare / Hypothyroidism Cont synthyroid and check TSH / GERD (gastroesophageal reflux disease) COnt PPI's for atleast 6 months Cough maybe sec to reflux /Personal h/o smoking with 2nd hand exposure - counselled /DVT prophylaxis On Lovenox and GI prophylaxis Brief history: 63-year-old female with pmh of Htn T2dm Gerd Aemia and Arthritis presents to the emergency department presents to the ER with a complaint of generalized weakness, fatigue, SOB, chest tightness and a mixed dry and productive cough. Hospitalist physical GENERAL: well-developed and morbidly obese elderly -[place] Citizen female lying on bed appeared to be in no discomfort. HEENT: Normocephalic. Atraumatic. No conjunctival congestion or icterus. Patient has moist mucous membranes. NECK: Supple. Trachea midline. CHEST/LUNGS: Diminished breath sounds auscultated bilaterally, breathing nonlabored. No wheezes crackles or rhonchi. HEART/CARDIOVASCULAR: Regular in rate and rhythm. S1 and S2 positive. ABDOMEN: Abdomen is soft, nontender. Patient has normal bowel sounds. SKIN: There is no rash. Warm and dry. NEURO: No focal motor deficit. Follows command. MUSCULOSKELETAL: No joint effusion or tenderness. EXTRIMITY: No edema, no cyanosis or clubbing. PSYCH: Cooperative. Subjective Date of service: 01/16/19 Interval history: Patient seen and examined. Medical records and medication list reviewed. No acute event overnight noted by the RN. Patient continued to complains of difficulty breathing on minimum exertion. Patient is tolerating diet. Discussed plan of care at bedside with patient. Objective - Constitutional Vitals: Vital Signs - 12hr 01/16/19 01/16/19 01/16/19 04:03 07:34 08:09 Temperature 98.1 F 97.4 F L Pulse Rate 108 H 78 Pulse Rate [ 96 H Bilateral Throughout] Respiratory 18 18 Rate Respiratory 18 Rate [Bilateral Throughout] Blood Pressure 106/69 86/52 O2 Sat by Pulse 98 98 Oximetry 01/16/19 01/16/19 01/16/19 08:23 10:00 10:01 Temperature Pulse Rate 101 H Pulse Rate [ 104 H Bilateral Throughout] Respiratory Rate Respiratory 20 Rate [Bilateral Throughout] Blood Pressure 111/64 O2 Sat by Pulse Oximetry 01/16/19 01/16/19 01/16/19 10:03 10:06 10:21 Temperature Pulse Rate Pulse Rate [ Bilateral Throughout] Respiratory Rate Respiratory Rate [Bilateral Throughout] Blood Pressure 110/64 107/64 105/69 O2 Sat by Pulse Oximetry 01/16/19 01/16/19 01/16/19 10:23 10:25 10:26 Temperature Pulse Rate Pulse Rate [ Bilateral Throughout] Respiratory Rate Respiratory Rate [Bilateral Throughout] Blood Pressure 115/62 112/66 113/64 O2 Sat by Pulse Oximetry 01/16/19 01/16/19 10:27 10:28 Temperature Pulse Rate Pulse Rate [ Bilateral Throughout] Respiratory Rate Respiratory Rate [Bilateral Throughout] Blood Pressure 109/61 107/61 O2 Sat by Pulse Oximetry - Labs CBC & Chem 7: 01/15/19 06:34 01/15/19 06:34 Labs: Abnormal lab results 01/15/19 01/15/19 01/16/19 Range/Units 16:25 20:35 07:58 POC Glucose 246 H 239 H 188 H (70-105) 01/16/19 Range/Units 13:30 POC Glucose 251 H (70-105)
[2019-01-16] MEDS: NORVASC PO SCH (18:51)
[2019-01-16] MEDS: SODIUM CHLORIDE FLUSH SYRINGE 10 ML IV SCH ×2 (18:51→21:30)
[2019-01-16] MEDS: ZITHROMAX PO SCH (18:51)
[2019-01-16] MEDS: PROTONIX PO SCH (18:55)
[2019-01-16] MEDS: HumaLOG SUB-Q SCH (21:28)
[2019-01-16] MEDS: DITROPAN PO SCH (21:29)
[2019-01-16] MEDS ORDERED: HumuLIN R SUB-Q SCH (22:00)
[2019-01-17] MEDS: DUONEB *Not for PRN Use IH SCH ×4 (01:53→20:26)
[2019-01-17] MEDS: SYNTHROID PO SCH (05:31)
[2019-01-17] MEDS: HumaLOG SUB-Q SCH ×4 (07:30→22:10)
[2019-01-17] MEDS: EFFEXOR PO SCH (10:34)
[2019-01-17] MEDS: ELAVIL PO SCH (10:34)
[2019-01-17] MEDS: MEGACE PO SCH ×4 (10:34→22:09)
[2019-01-17] MEDS: PROTONIX PO SCH (10:34)
[2019-01-17] MEDS: DELTASONE PO SCH (10:34)
[2019-01-17] MEDS: ZYLOPRIM PO SCH (10:35)
[2019-01-17] MEDS: ALDACTONE PO SCH (10:35)
[2019-01-17] MEDS: CARAFATE PO SCH ×2 (10:35→22:10)
[2019-01-17] MEDS: ZITHROMAX PO SCH (10:35)
[2019-01-17] MEDS: FISH OIL PO SCH (10:35)
[2019-01-17] MEDS: LOVENOX SUB-Q SCH (10:35)
[2019-01-17] MEDS: COREG PO SCH ×2 (10:35→22:11)
[2019-01-17] MEDS: GLUCOTROL PO SCH (10:35)
--- NOTE | 2019-01-17 10:38 | Consultation ---
History of Present Illness Consult date: 01/17/19 Requesting physician: TRISTA PATEL Consult reason: congestive heart failure History of present illness: The pt is a 63-year-old female with a past medical history of HTN, DM, sleep apnea (compliant with CPAP), GERD. She is previously unknown to our practice. She presented with c/o progressively worsening SOB, BLE swelling and cough since September. Pt says she has seen her primary care physician multiple times for ev aluation of these symptoms and was prescribed breathing treatments which did not alleviate her symptoms. She denies any chest pain, n/v, diaphoresis, dizziness or syncope. She also reports some palpitations on evaluation. Pt denies any known prior cardiac issues or cardiac w/u. She underwent stress testing yesterday which was negative for ischemia, showed EF 20%, and thus cardiology has been consulted. Past History Past Medical History: diabetes, hypertension, other (sleep apnea, obesity) Past Surgical History: cholecystectomy, hysterectomy Social history: smoking (former). denies: alcohol abuse, prescription drug abuse Medications and Allergies Allergies Allergy/AdvReac Type Severity Reaction Status Date / Time Iodinated Contrast- Oral and Allergy Severe FACE Verified 10/03/13 11:59 IV Dye SWELLING PAPER TAPE Allergy Itching, Uncoded 01/27/15 10:40 BLISTERS SKIN Home Medications Medication Instructions Recorded Confirmed Last Taken Type Famotidine 20 mg PO BID 10/01/13 01/14/19 10/02/13 History 20 MG Fluticasone Propionate [Flonase] 2 spray INNOSTRIL DAILY 10/01/13 01/14/19 0 10/01/13 History 2 SPRAYS Metformin HCl 1,000 mg PO BIDPC 10/01/13 01/14/19 10/02/13 18:00 History 500 MG cycloSPORINE [Restasis 0.05%] 1 drop OU BID 10/01/13 01/14/19 10/02/13 History 2 DROPS Albuterol Sulfate [Proventil Hfa] 2 puff IH Q6H PRN 01/14/19 01/14/19 Unknown History Allopurinol [Zyloprim] 300 mg PO QDAY 01/14/19 01/14/19 Unknown History Amitriptyline [Elavil] 25 mg PO DAILY 01/14/19 01/14/19 Unknown History AtorvaSTATin [Lipitor] 20 mg PO DAILY 01/14/19 01/14/19 Unknown History Diclofenac 1% [Diclofenac 1% 1 applic TP BID 01/14/19 01/14/19 Unknown History topical gel] Gabapentin [Neurontin] 300 mg PO TID 01/14/19 01/14/19 Unknown History Insulin Lispro Protamin/Lispro 40 units SUB-Q QAM 01/14/19 01/14/19 Unknown History [Humalog Mix 75-25 Vial] Insulin Lispro Protamin/Lispro 50 units SUB-Q QPM 01/14/19 01/14/19 Unknown History [Humalog Mix 75-25 Vial] Levothyroxine [Synthroid] 112 mcg PO QDAY 01/14/19 01/14/19 Unknown History Megestrol [Megace] 40 mg PO QID 01/14/19 01/14/19 Unknown History [place]ber[place]-3S/Dha/Epa/Fish Oil [[place]-3 1 each PO DAILY 01/14/19 01/14/19 Unknown History Fish Oil 1,000 mg Sfgl] Oxybutynin [Ditropan] 5 mg PO HS 01/14/19 01/14/19 Unknown History Spironolactone [Aldactone] 25 mg PO QDAY 01/14/19 01/14/19 Unknown History Sucralfate [Carafate] 1 gm PO BID 01/14/19 01/14/19 Unknown History Venlafaxine [Effexor] 75 mg PO QDAY 01/14/19 01/14/19 Unknown History glipiZIDE [Glucotrol] 5 mg PO QDAY 01/14/19 01/14/19 Unknown History Aspirin EC 81 mg PO QDAY #30 tablet. 01/16/19 Unknown Rx Azithromycin [Zithromax TAB] 500 mg PO QDAY #3 tablet 01/16/19 Unknown Rx Carvedilol [Coreg] 12.5 mg PO BID #60 tablet 01/16/19 Unknown Rx Furosemide [Lasix TAB] 40 mg PO QDAY #30 tablet 01/17/19 Unknown Rx Active Meds: Active Medications Acetaminophen (Tylenol) 650 mg PO Q4H PRN PRN Reason: Pain MILD(1-3)/Fever >100.5/BANKS Albuterol (Proventil) 2.5 mg IH Q4HRT PRN PRN Reason: Shortness Of Breath Albuterol/Ipratropium (Duoneb *Not For Prn Use*) 1 ampul IH Q6HRT [facility] Last Admin: 01/17/19 01:53 Dose: Not Given Documented by: Allopurinol (Zyloprim) 300 mg PO QDAY [facility] Last Admin: 01/16/19 13:47 Dose: 300 mg Documented by: Amitriptyline HCl (Elavil) 25 mg PO DAILY [facility] Last Admin: 01/16/19 13:46 Dose: 25 mg Documented by: Amlodipine Besylate (Norvasc) 10 mg PO QDAY [facility] Last Admin: 01/16/19 18:51 Dose: 10 mg Documented by: Atorvastatin Calcium (Lipitor) 20 mg PO HS [facility] Last Admin: 01/16/19 21:29 Dose: 20 mg Documented by: Azithromycin (Zithromax) 500 mg PO QDAY [facility] Last Admin: 01/16/19 18:51 Dose: 500 mg Documented by: Carvedilol (Coreg) 12.5 mg PO BID [facility] Last Admin: 01/16/19 21:30 Dose: 12.5 mg Documented by: Diclofenac Sodium (Diclofenac 1%) 1 applic TP BID [facility] Last Admin: 01/16/19 21:29 Dose: 1 applic Documented by: Enoxaparin Sodium (Lovenox) 40 mg SUB-Q QDAY [facility] Last Admin: 01/16/19 13:47 Dose: 40 mg Documented by: Fish Oil (Fish Oil) 1,000 mg PO QDAY [facility] Last Admin: 01/16/19 13:47 Dose: 1,000 mg Documented by: Fluticasone Propionate (Flonase) 50 mcg NS DAILY [facility] Last Admin: 01/16/19 13:47 Dose: 50 mcg Documented by: Gabapentin (Neurontin) 300 mg PO TID [facility] Last Admin: 01/16/19 21:30 Dose: 300 mg Documented by: Glipizide (Glucotrol) 5 mg PO QDAY [facility] Last Admin: 01/16/19 13:46 Dose: 5 mg Documented by: Hydromorphone HCl (Dilaudid) 0.5 mg IV Q3H PRN PRN Reason: Pain , Severe (7-10) Insulin Human Isoph/Insulin Regular (Humulin 70/30) 50 unit SUB-Q QPMDIAB [facility] Last Admin: 01/16/19 18:50 Dose: 50 unit Documented by: Insulin Human Isoph/Insulin Regular (Humulin 70/30) 50 unit SUB-Q QAMDIAB [facility] Insulin Human Lispro (Humalog) 0 unit SUB-Q ACHS [facility]; Protocol Last Admin: 01/16/19 21:28 Dose: 10 unit Documented by: Levothyroxine Sodium (Synthroid) 112 mcg PO 0600 [facility] Last Admin: 01/17/19 05:31 Dose: 112 mcg Documented by: Megestrol Acetate (Megace) 40 mg PO QID [facility] Last Admin: 01/16/19 21:29 Dose: 40 mg Documented by: Metformin HCl (Glucophage) 1,000 mg PO BIDDIAB [facility] Last Admin: 01/16/19 18:45 Dose: Not Given Documented by: Miscellaneous Medication (Cyclosporine [Restasis 0.05%]) 1 drop OU BID [facility] Ondansetron HCl (Zofran) 4 mg IV Q8H PRN PRN Reason: Nausea And Vomiting Oxybutynin Chloride (Ditropan) 5 mg PO HS [facility] Last Admin: 01/16/19 21:29 Dose: 5 mg Documented by: Oxycodone/Acetaminophen (Percocet 5/325) 1 tab PO Q6H PRN PRN Reason: Pain, Moderate (4-6) Last Admin: 01/15/19 21:27 Dose: 1 tab Documented by: Pantoprazole Sodium (Protonix) 40 mg PO QDAY [facility] Last Admin: 01/16/19 18:55 Dose: 40 mg Documented by: Prednisone (Deltasone) 40 mg PO QDAY [facility] Last Admin: 01/16/19 13:47 Dose: 40 mg Documented by: Sodium Chloride (Sodium Chloride Flush Syringe 10 Ml) 10 ml IV BID [facility] Last Admin: 01/16/19 21:30 Dose: 10 ml Documented by: Sodium Chloride (Sodium Chloride Flush Syringe 10 Ml) 10 ml IV PRN PRN PRN Reason: LINE FLUSH Spironolactone (Aldactone) 25 mg PO QDAY [facility] Last Admin: 01/16/19 13:46 Dose: 25 mg Documented by: Sucralfate (Carafate) 1 gm PO BID [facility] Last Admin: 01/16/19 21:29 Dose: 1 gm Documented by: Venlafaxine HCl (Effexor) 75 mg PO QDAY [facility] Last Admin: 01/16/19 13:46 Dose: 75 mg Documented by: Review of Systems Constitutional: no fever, no chills, no sweats Ears, nose, mouth and throat: no ear pain, no nose pain, no sinus pressure, no sinus pain Cardiovascular: palpitations, edema, shortness of breath, dyspnea on exertion, high blood pressure, leg edema, decreased exercise tolerance, no chest pain, no orthopnea, no syncope, no lightheadedness Respiratory: cough, cough with sputum, shortness of breath, dyspnea on exertion, congestion, no pain on inspiration Gastrointestinal: no abdominal pain, no nausea, no vomiting, no diarrhea, no constipation, no change in bowel habits Genitourinary Female: no pelvic pain, no flank pain, no dysuria, no urinary frequency, no urgency Musculoskeletal: no neck stiffness, no neck pain, no shooting arm pain, no arm numbness/tingling, no low back pain, no shooting leg pain Integumentary: no rash, no pruritis, no redness, no sores, no wounds Neurological: no head injury, no paralysis, no weakness, no parathesias, no numbness, no tingling, no seizures, no syncope Psychiatric: no anxiety Endocrine: no cold intolerance, no heat intolerance Hematologic/Lymphatic: no easy bruising, no easy bleeding Allergic/Immunologic: no urticaria Physical Examination Vital Signs Temp Pulse Resp BP Pulse Ox 97.9 F 126 H 22 113/63 100 01/14/19 09:06 01/14/19 09:06 01/14/19 09:06 01/14/19 09:06 01/14/19 09:06 General appearance: no acute distress HEENT: Positive: PERRL, Normocephaly, Mucus Membranes Moist Neck: Positive: neck supple, trachea midline Cardiac: Positive: Regular Rhythm, S1/S2 Lungs: Positive: Decreased Breath Sounds Neuro: Positive: Grossly Intact Abdomen: Negative: Tender Skin: Negative: Rash Extremities: Present: edema (trace BLE) Results 01/15/19 06:34 01/15/19 06:34 - Imaging and Cardiology Echo: pending EKG: report reviewed, image reviewed EKG interpretations - Telemetry EKG Rhythm: Sinus Tachycardia - EKG Sinus rhythms and dysrhythmias: sinus tachycardia Assessment and Plan Pt underwent stress testing yesterday which was negative for ischemia, EF 20%. Echo reviewed - EF 15-20%, restrictive diastolic filling, LA mildly dilated, RV systolic function mod reduced, mod MR, mild TR, RVSP 37mmHg, minimal pericardial effusion. Pt denies any prior known cardiac issues. Initiate IV diuresis and GDMT as tolerated. The patient has been seen in conjunction with Dr. Haji who agrees with the assessment and plan of care. - Patient Problems (1) Acute HFrEF (heart failure with reduced ejection fraction) Current Visit: Yes Status: Acute (2) Cardiomyopathy Current Visit: Yes Status: Chronic Plan to address problem: presumably nonischemic given negative stress test 01/16/2019 (3) Sinus tachycardia Current Visit: Yes Status: Acute (4) Diabetes mellitus with hyperglycemia Current Visit: Yes Status: Acute (5) Anemia Current Visit: Yes Status: Chronic Qualifiers: Anemia type: unspecified type Qualified Code(s): D64.9 - Anemia, unspecified (6) HTN (hypertension) Current Visit: Yes Status: Chronic Qualifiers: Hypertension type: essential hypertension Qualified Code(s): I10 - Essential (primary) hypertension (7) Sleep apnea Current Visit: Yes Status: Chronic (8) GERD (gastroesophageal reflux disease) Current Visit: Yes Status: Chronic Qualifiers: Esophagitis presence: with esophagitis Qualified Code(s): K21.0 - Gastro- esophageal reflux disease with esophagitis (9) Obesity Current Visit: Yes Status: Chronic
[2019-01-17] MEDS: NORVASC PO SCH (10:41)
--- NOTE | 2019-01-17 11:21 | Treadmill Report ---
THALLIUM Room Number: 477. Resting images revealed radioisotope activity in the inferior, septal, and lateral wall more compared to a small area in the anterior wall. This is probably due to some soft tissue attenuation. On post-Lexiscan, again there was similar uptake and there was better radioisotope activity in the anterior wall area compared to resting images. On gated scan, ejection fraction was noted to be 20%. There is no evidence of transient ischemic dilatation. IMPRESSION: 1. This test is negative for ischemia. 2. Marked left ventricular systolic dysfunction with ejection fraction of 20%. 3. For better evaluation of ejection fraction, suggest echocardiogram. Possibly, the patient has some cardiomyopathy. JOB# [id number] [facility]/GOOD
[2019-01-17] MEDS ORDERED: LASIX PO SCH (12:00)
[2019-01-17] MEDS: GLUCOPHAGE PO SCH ×2 (15:09→18:28)
[2019-01-17] MEDS: DICLOFENAC 1% TP SCH ×2 (15:09→22:08)
[2019-01-17] MEDS: NEURONTIN PO SCH ×3 (15:09→22:09)
[2019-01-17] MEDS: FLONASE NS SCH (15:10)
[2019-01-17] MEDS: SODIUM CHLORIDE FLUSH SYRINGE 10 ML IV SCH ×2 (15:10→22:11)
--- NOTE | 2019-01-17 15:47 | Progress Note ---
Assessment and Plan / Acute Chest pain, likely from costochondritis versus GERD Serial troponins negative, Lexiscan in AM was normal but showed EF of 20% VQ scan was low probability for PE /Acute combined systolic and diastolic CHF - 2-D echo showed EF 15-20% with restricted diastolic function, consulted cardiology - Stress test did not show any reversible ischemia but showed EF of 20% - Continue to monitor in's and O's, daily weight - Started on IV Lasix today / Cough due to ZACHARY inhibitor Cough for 4 months Probably sec to Losartan Patient to be counselled about Losartan by primary team---Not to take any ACEI or ARB's in future CCB presribed /Acute bronchitis, place on zithromax and nebs / HTN (hypertension) Cont antihypertensives except ARB's / IDDM (insulin dependent diabetes mellitus) Cont home insulin and coverage / Anemia Anemia workup ordered / OAB (overactive bladder) Cont vesicare / Hypothyroidism Cont synthyroid and check TSH / GERD (gastroesophageal reflux disease) COnt PPI's for atleast 6 months Cough maybe sec to reflux /Personal h/o smoking with 2nd hand exposure - counselled /DVT prophylaxis On Lovenox and GI prophylaxis Brief history: 63-year-old female with pmh of Htn T2dm Gerd Aemia and Arthritis presents to the emergency department presents to the ER with a complaint of generalized weakness, fatigue, SOB, chest tightness and a mixed dry and productive cough. Hospitalist physical GENERAL: well-developed and morbidly obese elderly -[place] female lying on bed appeared to be in no discomfort. HEENT: Normocephalic. Atraumatic. No conjunctival congestion or icterus. Patient has moist mucous membranes. NECK: Supple. Trachea midline. CHEST/LUNGS: Diminished breath sounds auscultated bilaterally, breathing nonla bored. No wheezes crackles or rhonchi. HEART/CARDIOVASCULAR: Regular in rate and rhythm. S1 and S2 positive. ABDOMEN: Abdomen is soft, nontender. Patient has normal bowel sounds. SKIN: There is no rash. Warm and dry. NEURO: No focal motor deficit. Follows command. MUSCULOSKELETAL: No joint effusion or tenderness. EXTRIMITY: No edema, no cyanosis or clubbing. PSYCH: Cooperative. Subjective Date of service: 01/17/19 Interval history: Patient seen and examined. Medical records and medication list reviewed. No acute event overnight noted by the RN. Patient continued to complains of difficulty breathing on minimum exertion. Patient is tolerating diet. Discussed plan of care at bedside with patient. Objective - Constitutional Vitals: Vital Signs - 12hr 01/17/19 01/17/19 01/17/19 03:47 10:45 10:58 Temperature 97.5 F L Pulse Rate 107 H Pulse Rate [ 105 H 106 H Bilateral Throughout] Respiratory 20 Rate Respiratory 20 18 Rate [Bilateral Throughout] Blood Pressure 112/68 O2 Sat by Pulse 100 Oximetry 01/17/19 01/17/19 01/17/19 12:07 13:59 14:12 Temperature 97.3 F L Pulse Rate 105 H Pulse Rate [ 102 H 100 H Bilateral Throughout] Respiratory 16 Rate Respiratory 18 18 Rate [Bilateral Throughout] Blood Pressure 110/79 O2 Sat by Pulse 99 Oximetry - Labs CBC & Chem 7: 01/15/19 06:34 01/18/19 05:47 Labs: Abnormal lab results 01/16/19 01/16/19 01/17/19 Range/Units 17:00 20:42 12:10 POC Glucose 403 H 409 H 263 H (70-105)
[2019-01-17] MEDS: LASIX IV SCH (18:27)
[2019-01-17] MEDS: DITROPAN PO SCH (22:09)
[2019-01-18] MEDS: DUONEB *Not for PRN Use IH SCH ×4 (02:18→20:48)
[2019-01-18] MEDS: SYNTHROID PO SCH (06:08)
[2019-01-18] MEDS: LASIX IV SCH (06:09)
[2019-01-18 07:02] LABS: Calcium 9.6 mg/dL (8.4-10.2)
[2019-01-18 08:20] LABS: Chol/HDL Ratio 4.13 %
[2019-01-18] MEDS: HumaLOG SUB-Q SCH ×4 (08:50→22:57)
[2019-01-18] MEDS: NEURONTIN PO SCH ×3 (09:00→20:18)
[2019-01-18] MEDS: GLUCOPHAGE PO SCH ×2 (09:11→17:15)
[2019-01-18] MEDS: PROTONIX PO SCH (10:35)
[2019-01-18] MEDS: LOVENOX SUB-Q SCH (10:53)
[2019-01-18] MEDS: ELAVIL PO SCH (10:53)
[2019-01-18] MEDS: CARAFATE PO SCH ×2 (10:53→22:56)
[2019-01-18] MEDS: MEGACE PO SCH ×4 (10:54→22:57)
[2019-01-18] MEDS: DELTASONE PO SCH (10:54)
[2019-01-18] MEDS: ZYLOPRIM PO SCH (10:54)
[2019-01-18] MEDS: EFFEXOR PO SCH (10:54)
[2019-01-18] MEDS: ZITHROMAX PO SCH (10:55)
[2019-01-18] MEDS: BABY ASPIRIN PO SCH (10:55)
[2019-01-18] MEDS: FLONASE NS SCH (10:55)
[2019-01-18] MEDS: FISH OIL PO SCH (10:55)
[2019-01-18] MEDS: ALDACTONE PO SCH (10:57)
[2019-01-18] MEDS: COREG PO SCH ×2 (10:57→22:56)
[2019-01-18] MEDS: GLUCOTROL PO SCH (10:58)
[2019-01-18] MEDS: COZAAR PO SCH (10:58)
[2019-01-18] MEDS: SODIUM CHLORIDE FLUSH SYRINGE 10 ML IV SCH ×2 (11:00→22:59)
[2019-01-18] MEDS: DICLOFENAC 1% TP SCH ×2 (12:30→23:02)
--- NOTE | 2019-01-18 13:21 | Progress Note ---
Assessment and Plan Pt clinically improving. Cont IV diuresis and GDMT as tolerated. Cardiac defibrillator (LifeVest) recommended in setting of severe cardiomy opathy. Pt is agreeable to LifeVest at this time and will plan to address AICD candidacy as OP. LifeVest ordered. The patient has been seen in conjunction with Dr. Haji who agrees with the assessment and plan of care. - Patient Problems (1) Acute HFrEF (heart failure with reduced ejection fraction) Current Visit: Yes Status: Acute (2) Cardiomyopathy Current Visit: Yes Status: Chronic Plan to address problem: presumably nonischemic given negative stress test 01/16/2019 (3) Sinus tachycardia Current Visit: Yes Status: Acute (4) Diabetes mellitus with hyperglycemia Current Visit: Yes Status: Acute (5) Anemia Current Visit: Yes Status: Chronic Qualifiers: Anemia type: unspecified type Qualified Code(s): D64.9 - Anemia, unspecified (6) HTN (hypertension) Current Visit: Yes Status: Chronic Qualifiers: Hypertension type: essential hypertension Qualified Code(s): I10 - Essential (primary) hypertension (7) Sleep apnea Current Visit: Yes Status: Chronic (8) GERD (gastroesophageal reflux disease) Current Visit: Yes Status: Chronic Qualifiers: Esophagitis presence: with esophagitis Qualified Code(s): K21.0 - Gastro- esophageal reflux disease with esophagitis (9) Obesity Current Visit: Yes Status: Chronic Subjective Date of service: 01/18/19 Principal diagnosis: HF Interval history: pt sitting up at bedside, states SOB is gradually improving. in SR on tele. Objective Last Vital Signs Temp 97.1 F L 01/18/19 11:10 Pulse 106 H 01/18/19 11:10 Resp 18 01/18/19 11:10 BP 110/57 01/18/19 11:10 Pulse Ox 98 01/18/19 11:10 - Physical Examination General: No Apparent Distress HEENT: Positive: PERRL, Normocephaly, Mucus Membranes Moist Neck: Positive: neck supple, trachea midline Cardiac: Positive: Reg Rate and Rhythm, S1/S2 Lungs: Positive: Decreased Breath Sounds Neuro: Positive: Grossly Intact Abdomen: Negative: Tender Skin: Negative: Rash Extremities: Present: edema (trace BLE) - Labs and Meds Lipids 01/18/19 Range/Units 05:47 Triglycerides 94 (2-149) mg/dL Cholesterol 95 (50-199) mg/dL HDL Cholesterol 23 L (40-59) mg/dL Cholesterol/HDL Ratio 4.13 % Comprehensive Metabolic Panel 01/18/19 Range/Units 05:47 Sodium 134 L (137-145) mmol/L Potassium 5.1 H (3.6-5.0) mmol/L Chloride 104.2 (98-107) mmol/L Carbon Dioxide 16 L (22-30) mmol/L BUN 40 H (7-17) mg/dL Creatinine 1.2 (0.7-1.2) mg/dL Glucose 101 H (65-100) mg/dL Calcium 9.6 (8.4-10.2) mg/dL - Imaging and Cardiology EKG: report reviewed, image reviewed Echo: report reviewed (EF 15-20%, restrictive diastolic filling, LA mildly dilated, RV systolic function mod reduced, mod MR, mild TR, RVSP 37mmHg, minimal pericardial effusion. ) - Telemetry EKG Rhythm: Sinus Rhythm - EKG Sinus rhythms and dysrhythmias: sinus tachycardia
--- NOTE | 2019-01-18 15:23 | Progress Note ---
Assessment and Plan / Acute Chest pain, likely from costochondritis versus GERD Serial troponins negative, Lexiscan was normal but showed EF of 20% VQ scan was low probability for PE Placed on PPI /Acute combined systolic and diastolic CHF - 2-D echo showed EF 15-20% with restricted diastolic function, consulted cardiology - Stress test did not show any reversible ischemia - Continue to monitor in's and O's, daily weight -change IV Lasix to po - ordered lifevest for discharge / Cough due to ZACAHRY inhibitor Cough for 4 months, Probably sec to Losartan Patient counselled about Losartan ---Not to take any ACEI or ARB's in future CCB presribed /Acute bronchitis, placed on zithromax and nebs / HTN (hypertension) Cont antihypertensives except ARB's / IDDM (insulin dependent diabetes mellitus) Cont home insulin and coverage / Anemia likely from CD Anemia workup showed normal b12, folate and iron level / OAB (overactive bladder) Cont vesicare / Hypothyroidism Cont synthyroid and normal TSH now / GERD (gastroesophageal reflux disease) COnt PPI's for atleast 6 months /Personal h/o smoking with 2nd hand exposure - counselled /DVT prophylaxis On Lovenox and GI prophylaxis Brief history: 63-year-old female with pmh of Htn T2dm Gerd Aemia and Arthritis presents to the emergency department presents to the ER with a complaint of generalized weakness, fatigue, SOB, chest tightness and a mixed dry and productive cough. Hospitalist physical GENERAL: well-developed and morbidly obese elderly -Citizen Of The [place] female lying on bed appeared to be in no discomfort. HEENT: Normocephalic. Atraumatic. No conjunctival congestion or icterus. Patient has moist mucous membranes. NECK: Supple. Trachea midline. CHEST/LUNGS: Diminished breath sounds auscultated bilaterally, breathing nonlabored. No wheezes crackles or rhonchi. HEART/CARDIOVASCULAR: Regular in rate and rhythm. S1 and S2 positive. ABDOMEN: Abdomen is soft, nontender. Patient has normal bowel sounds. SKIN: There is no rash. Warm and dry. NEURO: No focal motor deficit. Follows command. MUSCULOSKELETAL: No joint effusion or tenderness. EXTRIMITY: No edema, no cyanosis or clubbing. PSYCH: Cooperative. Subjective Date of service: 01/18/19 Principal diagnosis: HF Interval history: Patient seen and examined. Medical records and medication list reviewed. No acute event overnight noted by the RN. Patient continued to complains of difficulty breathing on minimum exertion. Patient is tolerating diet. need life vest Discussed plan of care at bedside with patient. Objective - Constitutional Vitals: Vital Signs - 12hr 01/18/19 01/18/19 01/18/19 04:40 07:47 08:09 Temperature 97.2 F L 97.7 F Pulse Rate Pulse Rate [ Apical] Pulse Rate [ 97 H Bilateral Throughout] Pulse Rate [ Left Posterior Tibial] Pulse Rate [ Right Posterior Tibial] Pulse Rate [ Right Radial] Respiratory 20 18 Rate Respiratory 18 Rate [Bilateral Throughout] Blood Pressure 134/77 128/73 O2 Sat by Pulse Oximetry 01/18/19 01/18/19 01/18/19 08:20 10:00 10:56 Temperature Pulse Rate 102 H 106 H Pulse Rate [ 82 Apical] Pulse Rate [ 102 H Bilateral Throughout] Pulse Rate [ 82 Left Posterior Tibial] Pulse Rate [ 82 Right Posterior Tibial] Pulse Rate [ 82 Right Radial] Respiratory 16 Rate Respiratory 18 Rate [Bilateral Throughout] Blood Pressure 92/53 O2 Sat by Pulse 98 99 Oximetry 01/18/19 01/18/19 01/18/19 10:57 10:58 11:10 Temperature 97.1 F L Pulse Rate 104 H 104 H 106 H Pulse Rate [ Apical] Pulse Rate [ Bilateral Throughout] Pulse Rate [ Left Posterior Tibial] Pulse Rate [ Right Posterior Tibial] Pulse Rate [ Right Radial] Respiratory 18 Rate Respiratory Rate [Bilateral Throughout] Blood Pressure 92/53 92/53 110/57 O2 Sat by Pulse 98 Oximetry 01/18/19 01/18/19 14:07 14:17 Temperature Pulse Rate Pulse Rate [ Apical] Pulse Rate [ 111 H 111 H Bilateral Throughout] Pulse Rate [ Left Posterior Tibial] Pulse Rate [ Right Posterior Tibial] Pulse Rate [ Right Radial] Respiratory Rate Respiratory 20 20 Rate [Bilateral Throughout] Blood Pressure O2 Sat by Pulse Oximetry - Labs CBC & Chem 7: 01/15/19 06:34 01/19/19 12:20 Labs: Abnormal lab results 01/17/19 01/17/19 01/18/19 Range/Units 16:44 21:24 05:47 Sodium 134 L (137-145) mmol/L Potassium 5.1 H (3.6-5.0) mmol/L Carbon Dioxide 16 L (22-30) mmol/L BUN 40 H (7-17) mg/dL Glucose 101 H (65-100) mg/dL POC Glucose 288 H 278 H (70-105) HDL Cholesterol 23 L (40-59) mg/dL 01/18/19 Range/Units 11:17 Sodium (137-145) mmol/L Potassium (3.6-5.0) mmol/L Carbon Dioxide (22-30) mmol/L BUN (7-17) mg/dL Glucose (65-100) mg/dL POC Glucose 201 H (70-105) HDL Cholesterol (40-59) mg/dL
[2019-01-18] MEDS: DITROPAN PO SCH (23:02)
[2019-01-19] MEDS: DUONEB *Not for PRN Use IH SCH ×3 (03:04→13:42)
[2019-01-19] MEDS: SYNTHROID PO SCH (06:26)
[2019-01-19] MEDS: HumaLOG SUB-Q SCH ×2 (08:42→08:51)
[2019-01-19] MEDS: GLUCOPHAGE PO SCH (08:46)
[2019-01-19] MEDS ORDERED: LASIX PO SCH (10:00)
[2019-01-19] MEDS: FLONASE NS SCH (10:33)
[2019-01-19] MEDS: COZAAR PO SCH (10:34)
[2019-01-19] MEDS: CARAFATE PO SCH (10:35)
[2019-01-19] MEDS: PROTONIX PO SCH (10:35)
[2019-01-19] MEDS: DELTASONE PO SCH (10:35)
[2019-01-19] MEDS: BABY ASPIRIN PO SCH (10:36)
[2019-01-19] MEDS: EFFEXOR PO SCH (10:37)
[2019-01-19] MEDS: GLUCOTROL PO SCH (10:38)
[2019-01-19] MEDS: FISH OIL PO SCH (10:38)
[2019-01-19] MEDS: LOVENOX SUB-Q SCH (10:39)
[2019-01-19] MEDS: ELAVIL PO SCH (10:39)
[2019-01-19] MEDS: ZYLOPRIM PO SCH (10:39)
[2019-01-19] MEDS: ZITHROMAX PO SCH (10:39)
[2019-01-19] MEDS: COREG PO SCH (10:40)
[2019-01-19] MEDS: NEURONTIN PO SCH ×2 (10:42→14:53)
[2019-01-19] MEDS: MEGACE PO SCH ×2 (11:37→14:53)
[2019-01-19 13:05] LABS: Calcium 9.4 mg/dL (8.4-10.2)
[2019-01-19 13:34] VITALS: BP 98/66
--- NOTE | 2019-01-19 14:01 | Discharge Summary ---
Providers - Providers Date of Admission: 01/16/19 14:33 Date of discharge: 01/19/19 Attending physician: TRISTA PATEL 01/16/19 14:35 Consult to Physician [CONS] Routine Comment: Consulting Provider: HUNTER MORILLO Physician Instructions: Reason For Exam: new onset CHF Primary care physician: [facility], [facility] Hospitalization Condition: Fair Pertinent studies: VQ scan CXR exercise stress test 2d echo Hospital course: 63-year-old female with pmh of Htn T2dm Gerd Aemia and Arthritis presents to the emergency department presents to the ER with a complaint of generalized weakness, fatigue, SOB, chest tightness and a mixed dry and productive cough. She was admitted for further evaluation and management Discharge diagnosis: / Acute Chest pain, likely from costochondritis versus GERD Serial troponins negative, Lexiscan was normal but showed EF of 20% VQ scan was low probability for PE Placed on PPI /Acute combined systolic and diastolic CHF - 2-D echo showed EF 15-20% with restricted diastolic function, consulted cardiology - MPI Stress test did not show any reversible ischemia - Monitored in's and O's, daily weight, placed on iv lasix -changed IV Lasix to po and ordered lifevest for discharge / Cough due to ZACHARY inhibitor Cough for 4 months, Probably sec to Losartan Patient counselled about Losartan ---Not to take any ACEI or ARB's in future CCB presribed /Acute bronchitis, placed on zithromax and nebs / HTN (hypertension) Cont antihypertensives except ARB's / IDDM (insulin dependent diabetes mellitus) Cont home insulin and coverage / Anemia likely from CD Anemia workup showed normal b12, folate and iron level / OAB (overactive bladder) Cont vesicare / Hypothyroidism Cont synthyroid and normal TSH now / GERD (gastroesophageal reflux disease) COnt PPI's for atleast 6 months /Personal h/o smoking with 2nd hand exposure - counselled /DVT prophylaxis On Lovenox and GI prophylaxis Hospitalist physical GENERAL: well-developed and morbidly obese elderly -[place]inamese female lying on bed appeared to be in no discomfort. HEENT: Normocephalic. Atraumatic. No conjunctival congestion or icterus. Patient has moist mucous membranes. NECK: Supple. Trachea midline. CHEST/LUNGS: Diminished breath sounds auscultated bilaterally, breathing nonlabored. No wheezes crackles or rhonchi. HEART/CARDIOVASCULAR: Regular in rate and rhythm. S1 and S2 positive. ABDOMEN: Abdomen is soft, nontender. Patient has normal bowel sounds. SKIN: There is no rash. Warm and dry. NEURO: No focal motor deficit. Follows command. MUSCULOSKELETAL: No joint effusion or tenderness. EXTRIMITY: No edema, no cyanosis or clubbing. PSYCH: Cooperative. Disposition: -01 TO HOME OR SELFCARE Time spent for discharge: 34 minutes Core Measure Documentation - Palliative Care Palliative Care/ Comfort Measures: Not Applicable - Core Measures Any of the following diagnoses?: heart failure - Heart Failure Discharge Requirements ZACHARY/ARB for LVSD if EF <40%: Not Applicable Reason for no ZACHARY/ARB: Allergy or sensitivity Beta saad at discharge: Yes Exam - Constitutional Vitals: Temp Pulse Resp BP Pulse Ox 97.8 F 105 H 18 98/66 96 01/19/19 11:41 01/19/19 11:41 01/19/19 11:41 01/19/19 11:41 01/19/19 11:41 Plan Activity: fall precautions Weight Bearing Status: Non-Weight Bearing Diet: low fat, low salt, diabetic Special Instructions: record daily weights, record daily BP diary Follow [place] with: [place] [Referring] - 3-5 Days COLBY BRUCE MD [Staff Physician] - 7 Days Prescriptions: Aspirin [Aspirin BABY CHEW TAB] 81 mg PO QDAY #30 tab.chew Carvedilol [Coreg] 3.125 mg PO BID #60 tablet Furosemide [Lasix TAB] 20 mg PO QDAY #30 tablet Azithromycin [Zithromax TAB] 500 mg PO QDAY #3 tablet
== END 2019-01-19 15:30 | disposition home or self-care (01) | DRG 205 ==
LOC: ED 09:04 → 4A 17:20 → OBSVTOIN 01-16 14:33
PROVIDERS: ADMIT Internal Medicine; ATTEND Internal Medicine
PROC: 3E0234Z Introduction of Serum, Toxoid and Vaccine into Muscle, Percutaneous Approach (ICD-10-PCS; principal; 2019-01-15)
PROC: 5A09357 Assistance with Respiratory Ventilation, Less than 24 Consecutive Hours, Continuous Positive Airway Pressure (ICD-10-PCS; 2019-01-17)
PROC: 5A09357 Assistance with Respiratory Ventilation, Less than 24 Consecutive Hours, Continuous Positive Airway Pressure (ICD-10-PCS; 2019-01-19)
DX: M94.0 Chondrocostal junction syndrome [Tietze] (principal); I50.41 Acute combined systolic (congestive) and diastolic (congestive) heart failure; J20.9 Acute bronchitis, unspecified; M19.90 Unspecified osteoarthritis, unspecified site; K21.9 Gastro-esophageal reflux disease without esophagitis; I11.0 Hypertensive heart disease with heart failure; N32.81 Overactive bladder; E03.9 Hypothyroidism, unspecified; K21.0 Gastro-esophageal reflux disease with esophagitis; E66.9 Obesity, unspecified; I42.9 Cardiomyopathy, unspecified; E11.65 Type 2 diabetes mellitus with hyperglycemia; R00.0 Tachycardia, unspecified; G47.30 Sleep apnea, unspecified; T46.5X5A Adverse effect of other antihypertensive drugs, initial encounter; D63.8 Anemia in other chronic diseases classified elsewhere; Y92.89 Other specified places as the place of occurrence of the external cause; Z87.891 Personal history of nicotine dependence; Z23 Encounter for immunization; Z68.41 Body mass index [BMI] 40.0-44.9, adult; Z90.49 Acquired absence of other specified parts of digestive tract; Z90.710 Acquired absence of both cervix and uterus; Z79.84 Long term (current) use of oral hypoglycemic drugs; Z79.4 Long term (current) use of insulin
CPT/HCPCS: 36415; 71046; 78452; 78582; 80048; 80053; 80061; 82607; 82747; 82962; 83036; 83550; 83880; 84443; 84484; 85025; 85379; 90732; 93005; 93010; 93017; 93306; 94640; 94660; 99285; G0378; A9270-GY; A9502; A9540; A9558; J1650; J1815; J1940; J7512

== ENCOUNTER 2019-06-07 20:32 | Inpatient (IN) | payer MEDICAID ==
[2019-06-07] MEDS ORDERED: ASPIRIN 325 MG TAB PO ONE (21:00)
--- NOTE | 2019-06-07 21:49 | XRay Report ---
CHEST 1 VIEW 06/07/2019 9:24 PM INDICATION / CLINICAL INFORMATION: Chest pain. COMPARISON: 01/14/2019 FINDINGS: SUPPORT DEVICES: Stable satisfactory position of right IJ port. HEART / MEDIASTINUM: Mild cardiomegaly LUNGS / PLEURA: Bilateral perihilar parenchymal opacities in a pattern most likely indicating pulmona ry edema. No pneumothorax. ADDITIONAL FINDINGS: No significant additional findings. IMPRESSION: 1. Bilateral perihilar parenchymal opacities are present in pattern most likely reflecting pulmonary edema. Signer Name: Cabrera Pantoja MD Signed: 06/07/2019 9:44 PM Workstation Name: [id number]
[2019-06-07] MEDS ORDERED: carvediloL 3.125 MG TAB PO ONE (22:12)
[2019-06-07] MEDS ORDERED: FUROSEMIDE 40 MG/4 ML INJ IV ONE (22:12)
--- NOTE | 2019-06-07 22:17 | Emergency Department Report ---
ED Shortness of Breath HPI - General Chief Complaint: Dyspnea/Respdistress Stated Complaint: KASEY COUGH Time Seen by Provider: 06/07/19 22:05 Source: patient Mode of arrival: Ambulatory Limitations: No Limitations - History of Present Illness Initial Comments: CC: "CHF" HPI: This is a 63-year-old female with history of hypertension, diabetes mellitus, GERD, anemia, arthritis, congestive heart failure currently wearing my status who presents with shortness of breath cough chest pain. She has been sick for the past 2 weeks. She came by private auto. Mild swelling in the extremities according to report. Positive productive cough. Has stabbing chest pain at rest for the past 2 weeks. She has been compliant with her medications. Her burr bench operator is Dr. Mcguire" According to electronic medical record, in January she was admitted to this hospital for new onset CHF. MD Complaint: shortness of breath, cough, chest pain -: Gradual, days(s) (5), week(s) (2) Severity: moderate Pain Scale: 7 Quality: sharp Consistency: intermittent Improves With: nothing Worsens With: nothing Known History Of: congestive heart failure Associated Symptoms: chest pain, cough - Related Data Home Medications Medication Instructions Recorded Confirmed Last Taken Famotidine 20 mg PO BID 10/01/13 01/14/19 10/02/13 20 MG Fluticasone Propionate [Flonase] 2 spray INNOSTRIL DAILY 10/01/13 01/14/19 10/01/13 2 SPRAYS Metformin HCl 1,000 mg PO BIDPC 10/01/13 01/14/19 10/02/13 18:00 500 MG cycloSPORINE [Restasis 0.05%] 1 drop OU BID 10/01/13 01/14/19 10/02/13 2 DROPS Albuterol Sulfate [Proventil Hfa] 2 puff IH Q6H PRN 01/14/19 01/14/19 Unknown Allopurinol [Zyloprim] 300 mg PO QDAY 01/14/19 01/14/19 Unknown Amitriptyline [Elavil] 25 mg PO DAILY 01/14/19 01/14/19 Unknown AtorvaSTATin [Lipitor] 20 mg PO DAILY 01/14/19 01/14/19 Unknown Diclofenac 1% [Diclofenac 1% 1 applic TP BID 01/14/19 01/14/19 Unknown topical gel] Gabapentin 300 mg PO TID 01/14/19 01/14/19 Unknown Insulin Lispro Protamin/Lispro 40 units SUB-Q QAM 01/14/19 01/14/19 Unknown [Humalog Mix 75-25 Vial] Insulin Lispro Protamin/Lispro 50 units SUB-Q QPM 01/14/19 01/14/19 Unknown [Humalog Mix 75-25 Vial] Levothyroxine [Synthroid] 112 mcg PO QDAY 01/14/19 01/14/19 Unknown Megestrol 40 mg PO QID 01/14/19 01/14/19 Unknown [place]-3S/Dha/Epa/Fish Oil [[place]-3 1 each PO DAILY 01/14/19 01/14/19 Unknown Fish Oil 1,000 mg Sfgl] Oxybutynin [Ditropan] 5 mg PO HS 01/14/19 01/14/19 Unknown Spironolactone [Aldactone] 25 mg PO QDAY 01/14/19 01/14/19 Unknown Sucralfate [Carafate] 1 gm PO BID 01/14/19 01/14/19 Unknown Venlafaxine [Effexor] 75 mg PO QDAY 01/14/19 01/14/19 Unknown glipiZIDE [Glucotrol] 5 mg PO QDAY 01/14/19 01/14/19 Unknown Previous Rx's Medication Instructions Recorded Last Taken Type Aspirin [Aspirin BABY CHEW TAB] 81 mg PO QDAY #30 tab.chew 01/19/19 Unknown Rx Azithromycin [Zithromax TAB] 500 mg PO QDAY #3 tablet 01/19/19 Unknown Rx Furosemide [Lasix TAB] 20 mg PO QDAY #30 tablet 01/19/19 Unknown Rx carvediloL [Coreg] 3.125 mg PO BID #60 tablet 01/19/19 Unknown Rx Allergies Allergy/AdvReac Type Severity Reaction Status Date / Time Iodinated Contrast Media Allergy Severe FACE Verified 10/03/13 11:59 SWELLING PAPER TAPE Allergy Itching, Uncoded 01/27/15 10:40 BLISTERS SKIN ED Review of Systems ROS: Stated complaint: KASEY COUGH Other details as noted in HPI Comment: All other systems reviewed and negative Constitutional: malaise. denies: fever Respiratory: cough, shortness of breath Cardiovascular: chest pain ED Past Medical Hx - Past Medical History Previous Medical History?: Yes Hx Hypertension: Yes Hx Heart Attack/AMI: No Hx Congestive Heart Failure: Yes Hx Diabetes: Yes Hx GERD: Yes Hx Liver Disease: No Hx Renal Disease: No Hx Arthritis: Yes Hx Seizures: No Hx Kidney Stones: Yes Hx Asthma: No Hx COPD: No Additional medical history: Cardiac Valves leakage - Surgical History Past Surgical History?: Yes Additional Surgical History: Back, Hysterectomy, Hernia Repair - Social History Smoking Status: Former Smoker - Medications Home Medications: Home Medications Medication Instructions Recorded Confirmed Last Taken Type Famotidine 20 mg PO BID 10/01/13 01/14/19 10/02/13 History 20 MG Fluticasone Propionate [Flonase] 2 spray INNOSTRIL DAILY 10/01/13 01/14/19 10/01/13 History 2 SPRAYS Metformin HCl 1,000 mg PO BIDPC 10/01/13 01/14/19 10/02/13 18:00 History 500 MG cycloSPORINE [Restasis 0.05%] 1 drop OU BID 10/01/13 01/14/19 10/02/13 History 2 DROPS Albuterol Sulfate [Proventil Hfa] 2 puff IH Q6H PRN 01/14/19 01/14/19 Unknown History Allopurinol [Zyloprim] 300 mg PO QDAY 01/14/19 01/14/19 Unknown History Amitriptyline [Elavil] 25 mg PO DAILY 01/14/19 01/14/19 Unknown History AtorvaSTATin [Lipitor] 20 mg PO DAILY 01/14/19 01/14/19 Unknown History Diclofenac 1% [Diclofenac 1% 1 applic TP BID 01/14/19 01/14/19 Unknown History topical gel] Gabapentin 300 mg PO TID 01/14/19 01/14/19 Unknown History Insulin Lispro Protamin/Lispro 40 units SUB-Q QAM 01/14/19 01/14/19 Unknown History [Humalog Mix 75-25 Vial] Insulin Lispro Protamin/Lispro 50 units SUB-Q QPM 01/14/19 01/14/19 Unknown History [Humalog Mix 75-25 Vial] Levothyroxine [Synthroid] 112 mcg PO QDAY 01/14/19 01/14/19 Unknown History Megestrol 40 mg PO QID 01/14/19 01/14/19 Unknown History [place]-3S/Dha/Epa/Fish Oil [[place]-3 1 each PO DAILY 01/14/19 01/14/19 Unknown History Fish Oil 1,000 mg Sfgl] Oxybutynin [Ditropan] 5 mg PO HS 01/14/19 01/14/19 Unknown History Spironolactone [Aldactone] 25 mg PO QDAY 01/14/19 01/14/19 Unknown History Sucralfate [Carafate] 1 gm PO BID 01/14/19 01/14/19 Unknown History Venlafaxine [Effexor] 75 mg PO QDAY 01/14/19 01/14/19 Unknown History glipiZIDE [Glucotrol] 5 mg PO QDAY 01/14/19 01/14/19 Unknown History Aspirin [Aspirin BABY CHEW TAB] 81 mg PO QDAY #30 tab.chew 01/19/19 Unknown Rx Azithromycin [Zithromax TAB] 500 mg PO QDAY #3 tablet 01/19/19 Unknown Rx Furosemide [Lasix TAB] 20 mg PO QDAY #30 tablet 01/19/19 Unknown Rx carvediloL [Coreg] 3.125 mg PO BID #60 tablet 01/19/19 Unknown Rx ED Physical Exam - General Limitations: No Limitations General appearance: alert, other (BIPAP mask in place mild work of breathing speaking broken sentences) - Head Head exam: Present: atraumatic, normocephalic - Eye Eye exam: Present: normal appearance - ENT ENT exam: Present: mucous membranes moist - Neck Neck exam: Present: normal inspection, full ROM - Respiratory Respiratory exam: Present: decreased breath sounds. Absent: wheezes, stridor, chest wall tenderness, accessory muscle use - Cardiovascular Cardiovascular Exam: Present: normal rhythm, tachycardia, normal heart sounds, other (lifevest in place). Absent: systolic murmur, diastolic murmur, rubs, gallop - GI/Abdominal GI/Abdominal exam: Present: soft. Absent: distended, tenderness, guarding, rebound - Extremities Exam Extremities exam: Present: other (1+ pitting edema) - Neurological Exam Neurological exam: Present: alert, oriented X3 - Psychiatric Psychiatric exam: Present: normal affect, normal mood - Skin Skin exam: Present: warm, dry, intact, normal color. Absent: rash ED Course Vital Signs 06/07/19 06/07/19 06/07/19 20:38 21:43 21:50 Temperature 99.0 F 98.3 F Pulse Rate 115 H 117 H 114 H Respiratory 20 36 H 39 H Rate Blood Pressure 136/87 149/80 Blood Pressure 149/80 [Left] O2 Sat by Pulse 98 96 100 Oximetry 06/07/19 06/07/19 06/07/19 22:03 22:24 23:00 Temperature Pulse Rate 108 H 108 H 116 H Respiratory 14 17 Rate Blood Pressure 155/75 148/96 Blood Pressure 155/75 [Left] O2 Sat by Pulse 99 94 Oximetry ED Medical Decision Making - Lab Data Result diagrams: 06/07/19 22:02 06/07/19 22:02 Laboratory Results - last 24 hr 06/07/19 06/07/19 06/07/19 22:02 22:02 22:50 WBC 7.2 RBC 2.93 L Hgb 9.7 L Hct 30.2 L MCV 103 H MCH 33 H MCHC 32 RDW 17.6 H Plt Count 143 Lymph % (Auto) 11.0 L [place] % (Auto) 8.0 H Eos % (Auto) 0.2 Baso % (Auto) 0.6 Lymph # 0.8 L [place] # 0.6 Eos # 0.0 Baso # 0.0 Seg Neutrophils % 80.2 H Seg Neutrophils # 5.8 POC ABG pH 7.454 H POC ABG pCO2 24.2 L POC ABG pO2 105 POC ABG HCO3 17.0 POC ABG Total CO2 18 POC ABG O2 Sat 98 POC ABG Base Excess -7 FiO2 30 Sodium 137 Potassium 3.4 L Chloride 101.6 Carbon Dioxide 16 L Anion Gap 23 BUN 19 H Creatinine 1.1 Estimated GFR > 60 BUN/Creatinine Ratio 17 Glucose 428 H Calcium 8.8 Troponin T 0.012 - EKG Data 06/07/19 22:16 EKG obtained 2051 Sinus tachycardia rate 115 beats a minute normal axis normal intervals no significant ST elevation nonspecific T wave pattern - Radiology Data Radiology results: report reviewed Chest radiograph perihilar opacities indicative of pulmonary vascular congestion - Medical Decision Making Mrs. Moore presents with 1-2 weeks of cough, chest pain , shortness of breath. Chest pain atypical for ACS. Findings constitute acute CHF exacerbation. She is currently requiring noninvasive positive pressure ventilation. I do not suspect pneumonia at this time. Persistent metabolic acidosis multifactorial with likely underlying renal insufficiency on diuretic with uncontrolled diabe christy. Anion gap 23. Bicarbonate 16, comparable to previous labs in January. ABG reveals normal pH with respiratory compensation of metabolic acidosis Admitted to the hospitalist service in stable condition. CHF address with blood pressure control, beta saad diuresis. Hyperglycemia addressed with insulin therapy. Tachycardia and tachypnea has improved. Anemia baseline for patient as compared to previous studies. Critical Care Time: Yes Critical care attestation.: If time is entered above; I have spent that time in minutes in the direct care of this critically ill patient, excluding procedure time. 40 minutes of critical care time excluding procedures were used in the care of the patient. Patient required multiple assessments and interventions. I reviewed the electronic medical record. I spoke with consultants involved in the care of the patient. ED Disposition Clinical Impression: Acute respiratory failure with hypoxia, Acute congestive heart failure, Diabetes mellitus with hyperglycemia Disposition: OP ADMIT IP TO THIS HOSP Is pt being admited?: Yes Does the pt Need Aspirin: No Condition: Stable
[2019-06-07 22:31] LABS: Basophils % (Auto) 0.6 % (0.0-1.8); Eosinophils % (Auto) 0.2 % (0.0-4.3); Hematocrit 30.2 % (30.3-42.9); Hemoglobin 9.7 gm/dl (10.1-14.3); Lymphocytes # (Auto) 0.8 K/mm3 (1.2-5.4); Mean Corpuscular HGB Conc 32 % (30-34); Mean Corpuscular Volume 103 fl (79-97); Monocytes # (Auto) 0.6 K/mm3 (0.0-0.8); Platelet Count 143 K/mm3 (140-440); Red Blood Count 2.93 M/mm3 (3.65-5.03); Red Cell Distribution Width 17.6 % (13.2-15.2)
[2019-06-07 22:50] LABS: BUN/Creatinine Ratio 17; Blood Urea Nitrogen 19 mg/dL (7-17); Calcium 8.8 mg/dL (8.4-10.2); Hemolysis Index 11
[2019-06-07] MEDS ORDERED: ALBUTEROL 2.5 MG/3 ML NEBU IH PRN (23:26)
[2019-06-07] MEDS ORDERED: INSULIN REGULAR, HUMAN 100 UNITS/1 ML IV ONE (23:26)
[2019-06-07] MEDS ORDERED: ONDANSETRON 4 MG/2 ML INJ IV PRN (23:26)
--- NOTE | 2019-06-07 23:26 | History and Physical Report ---
History of Present Illness Chief complaint: I cant breathe History of present illness: 63 YO Female with Systolic/Diastolic CHF (EF 15%), MO, Obesity Hypoventilation, DM, GERD, OA, Anemia presents to ED for evaluation. Pt states that she has "been feeling sick" for the past 2 weeks. Pt reports shorteness of breath, leg edema, productive cough over the past 2 weeks, with persistent symptoms over the same time frame. Pt also acknowledges Orthopnea/PND, Decreased exercise tolerance, dypsnea on exertion, and dypsnea at rest. Pt reports compliance with medications. Pt transported to [facility] via private vehicle. Pt seen and evaluated in ED and found to have Acute Hypoxemic Respiratory Failure, CHF Decompensation. Pt admitted to telemetry and treated with diuresis and supplemental oxygen with persistent symptoms. Pt subsequently treated with NIPPV. Cardiology team consulted in ED. Pt denies fever, chills, CP, Palpitations, NVD, Trauma, BRBPR, Skin rash, or recent ill contacts. Past History Past Medical History: other (see HPI) Past Surgical History: hysterectomy, hernia repair, Other (Back surgery) Social history: single. denies: smoking, alcohol abuse, prescription drug abuse Family history: diabetes, hypertension Medications and Allergies Allergies Allergy/AdvReac Type Severity Reaction Status Date / Time Iodinated Contrast Media Allergy Severe FACE Verified 10/03/13 11:59 SWELLING PAPER TAPE Allergy Itching, Uncoded 01/27/15 10:40 BLISTERS SKIN Home Medications Medication Instructions Recorded Confirmed Last Taken Type Famotidine 20 mg PO BID 10/01/13 01/14/19 10/02/13 History 20 MG Fluticasone Propionate [Flonase] 2 spray INNOSTRIL DAILY 10/01/13 01/14/19 10/01/13 History 2 SPRAYS Metformin HCl 1,000 mg PO BIDPC 10/01/13 01/14/19 10/02/13 18:00 History 500 MG cycloSPORINE [Restasis 0.05%] 1 drop OU BID 10/01/13 01/14/19 10/02/13 History 2 DROPS Albuterol Sulfate [Proventil Hfa] 2 puff IH Q6H PRN 01/14/19 01/14/19 Unknown History Allopurinol [Zyloprim] 300 mg PO QDAY 01/14/19 01/14/19 Unknown History Amitriptyline [Elavil] 25 mg PO DAILY 01/14/19 01/14/19 Unknown History AtorvaSTATin [Lipitor] 20 mg PO DAILY 01/14/19 01/14/19 Unknown History Diclofenac 1% [Diclofenac 1% 1 applic TP BID 01/14/19 01/14/19 Unknown History topical gel] Gabapentin 300 mg PO TID 01/14/19 01/14/19 Unknown History Insulin Lispro Protamin/Lispro 40 units SUB-Q QAM 01/14/19 01/14/19 Unknown History [Humalog Mix 75-25 Vial] Insulin Lispro Protamin/Lispro 50 units SUB-Q QPM 01/14/19 01/14/19 Unknown History [Humalog Mix 75-25 Vial] Levothyroxine [Synthroid] 112 mcg PO QDAY 01/14/19 01/14/19 Unknown History Megestrol 40 mg PO QID 01/14/19 01/14/19 Unknown History [place]-3S/Dha/Epa/Fish Oil [[place]-3 1 each PO DAILY 01/14/19 01/14/19 Unknown History Fish Oil 1,000 mg Sfgl] Oxybutynin [Ditropan] 5 mg PO HS 01/14/19 01/14/19 Unknown History Spironolactone [Aldactone] 25 mg PO QDAY 01/14/19 01/14/19 Unknown History Sucralfate [Carafate] 1 gm PO BID 01/14/19 01/14/19 Unknown History Venlafaxine [Effexor] 75 mg PO QDAY 01/14/19 01/14/19 Unknown History glipiZIDE [Glucotrol] 5 mg PO QDAY 01/14/19 01/14/19 Unknown History Aspirin [Aspirin BABY CHEW TAB] 81 mg PO QDAY #30 tab.chew 01/19/19 Unknown Rx Azithromycin [Zithromax TAB] 500 mg PO QDAY #3 tablet 01/19/19 Unknown Rx Furosemide [Lasix TAB] 20 mg PO QDAY #30 tablet 01/19/19 Unknown Rx carvediloL [Coreg] 3.125 mg PO BID #60 tablet 01/19/19 Unknown Rx Review of Systems Constitutional: weight gain, no weight loss, no fever, no chills Ears, nose, mouth and throat: no ear pain, no ear discharge, no tinnitis, no decreased hearing, no nose pain, no nasal congestion Breasts: no change in shape, no swelling, no mass Cardiovascular: orthopnea, edema, shortness of breath, dyspnea on exertion, paroxysmal nocturnal dyspnea, high blood pressure, leg edema, decreased exercise tolerance, no chest pain, no rapid/irregular heart beat, no syncope Respiratory: cough, no cough with sputum, no excessive sputum, no hemoptysis Gastrointestinal: no nausea, no vomiting, no diarrhea, no constipation, no change in bowel habits Genitourinary Female: no pelvic pain, no flank pain, no menorrhagia, no dysuria, no urinary frequency, no urgency Rectal: no pain, no incontinence, no bleeding Musculoskeletal: no neck stiffness, no shooting arm pain, no low back pain, no leg numbness/tingling Integumentary: no rash, no pruritis, no redness, no sores, no wounds, no jaundice Neurological: no head injury, no transient paralysis, no paralysis, no weakness, no parathesias, no numbness, no tingling, no syncope, no tremors Psychiatric: no anxiety, no memory loss, no change in sleep habits, no hypersomnia, no change in appetite, no change in libido, no suicidal ideation, no disorientation Endocrine: no cold intolerance, no heat intolerance, no polyphagia, no excessive thirst, no polydipsia, no nocturia, no excessive sweating, no flushing Hematologic/Lymphatic: no easy bruising, no easy bleeding, no lymphedema Allergic/Immunologic: no allergic rhinitis, no wheezing, no persistent infections, no anaphylaxis Exam - Constitutional Vitals: Temp Pulse Resp BP Pulse Ox 98.3 F 116 H 17 148/96 94 06/07/19 21:43 06/07/19 23:00 06/07/19 23:00 06/07/19 23:00 06/07/19 23:00 General appearance: Present: mild distress, obese - EENT Eyes: Present: PERRL ENT: hearing intact, clear oral mucosa - Neck Neck: Present: supple, normal ROM - Respiratory Respiratory effort: normal Respiratory: bilateral: diminished, rhonchi - Cardiovascular Heart Sounds: Present: S1 & S2. Absent: rub, click - Extremities Extremities: pulses symmetrical, No edema Peripheral Pulses: within normal limits - Abdominal General gastrointestinal: Present: soft, non-tender, non-distended, normal bowel sounds Female genitourinary: Present: normal - Integumentary Integumentary: Present: clear, warm, dry - Musculoskeletal Musculoskeletal: gait normal, strength equal bilaterally - Psychiatric Psychiatric: appropriate mood/affect, intact judgment & insight - Neurologic Neurologic: CNII-XII intact, moves all extremities Results - Labs CBC & Chem 7: 06/07/19 22:02 06/07/19 22:02 Labs: Abnormal lab results 06/07/19 06/07/19 06/07/19 Range/Units 22:02 22:02 22:50 RBC 2.93 L (3.65-5.03) M/mm3 Hgb 9.7 L (10.1-14.3) gm/dl Hct 30.2 L (30.3-42.9) % MCV 103 H (79-97) fl MCH 33 H (28-32) pg RDW 17.6 H (13.2-15.2) % Lymph % (Auto) 11.0 L (13.4-35.0) % [place] % (Auto) 8.0 H (0.0-7.3) % Lymph # 0.8 L (1.2-5.4) K/mm3 Seg Neutrophils % 80.2 H (40.0-70.0) % POC ABG pH 7.454 H (7.35-7.45) POC ABG pCO2 24.2 L (35-45) Potassium 3.4 L (3.6-5.0) mmol/L Carbon Dioxide 16 L (22-30) mmol/L BUN 19 H (7-17) mg/dL Glucose 428 H (65-100) mg/dL Assessment and Plan - Patient Problems (1) Acute congestive heart failure Current Visit: Yes Status: Acute Qualifiers: Heart failure type: combined systolic and diastolic Qualified Code(s): I50.41 - Acute combined systolic (congestive) and diastolic (congestive) heart failure Plan to address problem: Admit to telemetry, strict I/O, daily weight, diuresis, supplemental oxygen, afterload reduction, blood pressure control, cardiology consulted in ED, BNP, chest x ray. (2) Acute respiratory failure with hypoxia Current Visit: Yes Status: Acute Plan to address problem: Supplemental oxygen, nebulizer therapy, pulse oximetry, NIPPV, chest x ray. (3) Diabetes Current Visit: Yes Status: Acute Plan to address problem: ADA diet, insulin, accu check, hypoglycemia protocol (4) GERD (gastroesophageal reflux disease) Current Visit: Yes Status: Acute Qualifiers: Esophagitis presence: without esophagitis Qualified Code(s): K21.9 - Gastro-esophageal reflux disease without esophagitis Plan to address problem: PPI therapy, (5) Obesity hypoventilation syndrome Current Visit: Yes Status: Acute Plan to address problem: Supplemental oxygen, nebulizer therapy, NIPPV, pulse oximetry, chest x ray (6) DVT prophylaxis Current Visit: No Status: Acute Plan to address problem: SCD to BLE while in bed, supportive care. prophylactic heparin
[2019-06-07] MEDS ORDERED: oxyCODONE /ACETAMINOPHEN 5-325MG TAB PO ONE (23:30)
[2019-06-07] MEDS ORDERED: oxyCODONE /ACETAMINOPHEN 5-325MG TAB ONE (23:43)
[2019-06-07] MEDS ORDERED: INSULIN REGULAR, HUMAN 100 UNITS/1 ML ONE (23:43)
[2019-06-07] MEDS ORDERED: LORazepam 2 MG/ML VIAL IV ONE (23:57)
[2019-06-08] MEDS ORDERED: LORazepam 2 MG/ML VIAL ONE (00:08)
[2019-06-08] MEDS: AMITRIPTYLINE 25 MG TAB PO SCH ×2 (00:23→22:49)
[2019-06-08] MEDS: FUROSEMIDE 40 MG/4 ML INJ IV SCH ×2 (05:32→17:14)
[2019-06-08] MEDS: LEVOTHYROXINE 112 MCG TAB PO SCH (05:32)
[2019-06-08] MEDS ORDERED: DEXTROSE 50% IN WATER (25GM) 50 ML SYRINGE IV PRN (08:31)
[2019-06-08] MEDS: GABAPENTIN 300 MG CAP PO SCH ×3 (09:20→20:28)
[2019-06-08] MEDS: INSULIN LISPRO 100 UNIT/ML SUB-Q SCH ×4 (09:20→22:37)
[2019-06-08] MEDS: SUCRALFATE 1 GM TAB PO SCH ×2 (09:20→22:41)
[2019-06-08] MEDS: FAMOTIDINE 20 MG TAB PO SCH ×2 (09:21→22:41)
[2019-06-08] MEDS: allopurinoL 300 MG TAB PO SCH (09:21)
[2019-06-08] MEDS: ASPIRIN 81 MG TAB CHEW PO SCH (09:21)
[2019-06-08] MEDS: carvediloL 3.125 MG TAB PO SCH ×2 (09:22→22:41)
[2019-06-08] MEDS: VENLAFAXINE 75 MG TAB PO SCH (09:22)
[2019-06-08] MEDS: SPIRONOLACTONE 25 MG TAB PO SCH (09:22)
[2019-06-08] MEDS: HEPARIN 5,000 UNIT/1 ML VIAL SUB-Q SCH ×2 (09:29→22:39)
[2019-06-08] MEDS: OMEGA-3 FATTY ACIDS/FISH OIL 1 GRAM CAP PO SCH (09:39)
[2019-06-08] MEDS ORDERED: CYCLOSPORINE OU SCH (10:00)
--- NOTE | 2019-06-08 10:12 | Consultation ---
History of Present Illness Consult date: 06/08/19 Requesting physician: CHRISTINA QURESHI Consult reason: congestive heart failure History of present illness: Ms. Moore is a 63 y/o female who presented to [facility] with SOB, cough and associated chest pain that worsened over the past few days. She is a patient of Dr. Naranjo in our practice. Her medical history is significant for chronic HFrEF, dilated cardiomyopathy, obesity hypoventilation syndrome, type 2 diabetes, hypertension, CKD (per patient) RAMSEY on CPAP and left BRCA with a h/o chemotherapy. She describes that CP as left-sided, occurring at rest and worsening with cough and deep breathing. She also reports that her certified residential medication aide recently instructed her to discontinue several of her cardiac medications, including her Lasix. EKG NAF and initial troponin mildly elevated to 0.01. CXR significant for pulmonary edema. 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 An echocardiogram in January found an EF of 15 to 20 percent, moderate MR, mild TR, and an RVSP of 37. A nuclear stress test in January was negative for ischemia. Past History Past Medical History: cancer (L BRCA), diabetes, heart failure, hypertension, renal failure, other (cardiomyopathy) Past Surgical History: hysterectomy, hernia repair, Other (Back surgery) Social history: single. denies: smoking, alcohol abuse, prescription drug abuse Family history: diabetes, hypertension Medications and Allergies Allergies Allergy/AdvReac Type Severity Reaction Status Date / Time Iodinated Contrast Media Allergy Severe FACE Verified 10/03/13 11:59 SWELLING PAPER TAPE Allergy Itching, Uncoded 01/27/15 10:40 BLISTERS SKIN Home Medications Medication Instructions Recorded Confirmed Last Taken Type Famotidine 20 mg PO BID 10/01/13 01/14/19 10/02/13 History 20 MG Fluticasone Propionate [Flonase] 2 spray INNOSTRIL DAILY 10/01/13 01/14/19 10/01/13 History 2 SPRAYS Metformin HCl 1,000 mg PO BIDPC 10/01/13 01/14/19 10/02/13 18:00 History 500 MG cycloSPORINE [Restasis 0.05%] 1 drop OU BID 10/01/13 01/14/19 10/02/13 History 2 DROPS Albuterol Sulfate [Proventil Hfa] 2 puff IH Q6H PRN 01/14/19 01/14/19 Unknown History Allopurinol [Zyloprim] 300 mg PO QDAY 01/14/19 01/14/19 Unknown History Amitriptyline [Elavil] 25 mg PO DAILY 01/14/19 01/14/19 Unknown History AtorvaSTATin [Lipitor] 20 mg PO DAILY 01/14/19 01/14/19 Unknown History Diclofenac 1% [Diclofenac 1% 1 applic TP BID 01/14/19 01/14/19 Unknown History topical gel] Gabapentin 300 mg PO TID 01/14/19 01/14/19 Unknown History Insulin Lispro Protamin/Lispro 40 units SUB-Q QAM 01/14/19 01/14/19 Unknown History [Humalog Mix 75-25 Vial] Insulin Lispro Protamin/Lispro 50 units SUB-Q QPM 01/14/19 01/14/19 Unknown History [Humalog Mix 75-25 Vial] Levothyroxine [Synthroid] 112 mcg PO QDAY 01/14/19 01/14/19 Unknown History Megestrol 40 mg PO QID 01/14/19 01/14/19 Unknown History [place]-3S/Dha/Epa/Fish Oil [[place]-3 1 each PO DAILY 01/14/19 01/14/19 Unknown History Fish Oil 1,000 mg Sfgl] Oxybutynin [Ditropan] 5 mg PO HS 01/14/19 01/14/19 Unknown History Spironolactone [Aldactone] 25 mg PO QDAY 01/14/19 01/14/19 Unknown History Sucralfate [Carafate] 1 gm PO BID 01/14/19 01/14/19 Unknown History Venlafaxine [Effexor] 75 mg PO QDAY 01/14/19 01/14/19 Unknown History glipiZIDE [Glucotrol] 5 mg PO QDAY 01/14/19 01/14/19 Unknown History Aspirin [Aspirin BABY CHEW TAB] 81 mg PO QDAY #30 tab.chew 01/19/19 Unknown Rx Azithromycin [Zithromax TAB] 500 mg PO QDAY #3 tablet 01/19/19 Unknown Rx Furosemide [Lasix TAB] 20 mg PO QDAY #30 tablet 01/19/19 Unknown Rx carvediloL [Coreg] 3.125 mg PO BID #60 tablet 01/19/19 Unknown Rx Active Meds: Active Medications Acetaminophen (Tylenol) 650 mg PO Q4H PRN PRN Reason: Pain MILD(1-3)/Fever >100.5/BANKS Albuterol (Proventil) 2.5 mg IH Q4HRT PRN PRN Reason: Shortness Of Breath Allopurinol (Zyloprim) 300 mg PO QDAY [facility] Last Admin: 06/08/19 09:21 Dose: 300 mg Documented by: Amitriptyline HCl (Elavil) 25 mg PO QHS [facility] Last Admin: 06/08/19 00:23 Dose: 25 mg Documented by: Aspirin (Baby Aspirin) 81 mg PO QDAY [facility] Last Admin: 06/08/19 09:21 Dose: 81 mg Documented by: Atorvastatin Calcium (Lipitor) 20 mg PO DAILY [facility] Last Admin: 06/08/19 09:21 Dose: 20 mg Documented by: Carvedilol (Coreg) 3.125 mg PO BID [facility] Last Admin: 06/08/19 09:22 Dose: 3.125 mg Documented by: Dextrose (D50w (25gm) Syringe) 50 ml IV Q30MIN PRN; Protocol PRN Reason: Hypoglycemia Diclofenac Sodium (Diclofenac 1%) 1 applic TP BID [facility] Famotidine (Pepcid) 20 mg PO BID [facility] Last Admin: 06/08/19 09:21 Dose: 20 mg Documented by: Fish Oil (Fish Oil) 1,000 mg PO DAILY [facility] Last Admin: 06/08/19 09:39 Dose: 1,000 mg Documented by: Furosemide (Lasix) 40 mg IV BID@0600,1800 [facility] Last Admin: 06/08/19 05:32 Dose: 40 mg Documented by: Gabapentin (Gabapentin) 300 mg PO TID [facility] Last Admin: 06/08/19 09:20 Dose: 300 mg Documented by: Heparin Sodium (Porcine) (Heparin) 5,000 unit SUB-Q Q12HR [facility] Last Admin: 06/08/19 09:29 Dose: 5,000 unit Documented by: Insulin Human Lispro (Humalog) 0 unit SUB-Q ACHS [facility]; Protocol Last Admin: 06/08/19 09:20 Dose: 8 unit Documented by: Levothyroxine Sodium (Synthroid) 112 mcg PO QDAY@0600 [facility] Last Admin: 06/08/19 05:32 Dose: 112 mcg Documented by: Miscellaneous Medication (Cyclosporine [Restasis 0.05%]) 1 drop OU BID [facility] Ondansetron HCl (Zofran) 4 mg IV Q8H PRN PRN Reason: Nausea And Vomiting Oxybutynin Chloride (Ditropan) 5 mg PO [facility] Sodium Chloride (Sodium Chloride Flush Syringe 10 Ml) 10 ml IV BID [facility] Last Admin: 06/08/19 09:23 Dose: 10 ml Documented by: Sodium Chloride (Sodium Chloride Flush Syringe 10 Ml) 10 ml IV PRN PRN PRN Reason: LINE FLUSH Spironolactone (Aldactone) 25 mg PO QDAY [facility] Last Admin: 06/08/19 09:22 Dose: 25 mg Documented by: Sucralfate (Carafate) 1 gm PO BID [facility] Last Admin: 06/08/19 09:20 Dose: 1 gm Documented by: Venlafaxine HCl (Effexor) 75 mg PO QDAY [facility] Last Admin: 06/08/19 09:22 Dose: 75 mg Documented by: Review of Systems All systems: negative Cardiovascular: chest pain, shortness of breath Physical Examination Vital Signs Temp Pulse Resp BP Pulse Ox 99.0 F 115 H 20 136/87 98 06/07/19 20:38 06/07/19 20:38 06/07/19 20:38 06/07/19 20:38 06/07/19 20:38 General appearance: mild distress HEENT: Positive: PERRL Neck: Positive: neck supple Cardiac: Positive: Regular Rhythm Lungs: Positive: Decreased Breath Sounds Neuro: Positive: Grossly Intact Abdomen: Positive: Unremarkable Female genitourinary: deferred Skin: Positive: Clear Musculoskeletal: Decreased Range of Motion Extremities: Present: +1 Edema (generalized) Results 06/07/19 22:02 06/07/19 22:02 CBC 06/07/19 Range/Units 22:02 WBC 7.2 (4.5-11.0) K/mm3 RBC 2.93 L (3.65-5.03) M/mm3 Hgb 9.7 L (10.1-14.3) gm/dl Hct 30.2 L (30.3-42.9) % Plt Count 143 (140-440) K/mm3 Lymph # 0.8 L (1.2-5.4) K/mm3 Esmeralda # 0.6 (0.0-0.8) K/mm3 Eos # 0.0 (0.0-0.4) K/mm3 Baso # 0.0 (0.0-0.1) K/mm3 Comprehensive Metabolic Panel 06/07/19 Range/Units 22:02 Sodium 137 (137-145) mmol/L Potassium 3.4 L (3.6-5.0) mmol/L Chloride 101.6 (98-107) mmol/L Carbon Dioxide 16 L (22-30) mmol/L BUN 19 H (7-17) mg/dL Creatinine 1.1 (0.7-1.2) mg/dL Glucose 428 H (65-100) mg/dL Calcium 8.8 (8.4-10.2) mg/dL - Imaging and Cardiology Echo: report reviewed (01/2019: EF 15 to 20%, moderate MR, mild TR, RVSP 37) EKG interpretations - Telemetry EKG Rhythm: Sinus Rhythm Repolarization changes or abnormalities: nonspecific abnormality, ST segment, and/or T wave (diffuse) Assessment and Plan Ms. Moore is a 63 y/o female admitted with acute on chronic HFrEF. Continue home GDMT. Avoid ACEi/ARB d/t renal insufficiency. Recommend nephrology consult, since patient reports her certified residential medication aide instructed her to stop some of her cardiac medications. The patient has been seen in conjunction with Dr. Peterson Aguirre, who agrees with the assessment and plan. - Patient Problems (1) Acute on chronic HFrEF (heart failure with reduced ejection fraction) Current Visit: Yes Status: Acute (2) Acute respiratory failure with hypoxia Current Visit: Yes Status: Acute (3) Diabetes Current Visit: Yes Status: Chronic (4) Obesity hypoventilation syndrome Current Visit: Yes Status: Chronic (5) Sinus tachycardia Current Visit: No Status: Acute (6) Anemia Current Visit: No Status: Chronic Qualifiers: Anemia type: unspecified type Qualified Code(s): D64.9 - Anemia, unspecified (7) Cardiomyopathy Current Visit: No Status: Chronic (8) HTN (hypertension) Current Visit: No Status: Chronic Qualifiers: Hypertension type: essential hypertension Qualified Code(s): I10 - Essential (primary) hypertension (9) Obesity Current Visit: No Status: Chronic (10) Sleep apnea Current Visit: No Status: Chronic
[2019-06-08] MEDS ORDERED: INSULIN NPH/REGULAR 70/30 INJ SUB-Q SCH (13:00)
[2019-06-08] MEDS: ACETAMINOPHEN 325 MG TAB PO PRN (14:00)
--- NOTE | 2019-06-08 15:06 | Progress Note ---
Assessment and Plan (1) Acute congestive heart failure Current Visit: Yes Status: Acute Qualifiers: Heart failure type: combined systolic and diastolic Qualified Code(s): I50.41 - Acute combined systolic (congestive) and diastolic (congestive) heart failure Plan to address problem: IV Lasix q12 and KCL (2) Acute respiratory failure with hypoxia Current Visit: Yes Status: Acute Plan to address problem: Supplemental oxygen, nebulizer therapy, pulse oximetry, NIPPV, chest x ray. (3) Diabetes Current Visit: Yes Status: Acute Plan to address Adjusted Insulin dosage to 45 units BID Discontinue Glipizide--no need for Glipizide bcoz patient is getting Insulin on a regular basis. (4) GERD (gastroesophageal reflux disease) Current Visit: Yes Status: Acute Qualifiers: Esophagitis presence: without esophagitis Qualified Code(s): K21.9 - Gastro-esophageal reflux disease without esophagitis Plan to address problem: PPI therapy, (5) Obesity hypoventilation syndrome Current Visit: Yes Status: Acute Plan to address problem: Supplemental oxygen, nebulizer therapy, NIPPV, pulse oximetry, chest x ray (6) DVT prophylaxis Current Visit: No Status: Acute Plan to address problem: SCD to BLE while in bed, supportive care. prophylactic heparin Subjective Date of service: 06/08/19 Principal diagnosis: CHF exacerbation Interval history: 63 YO Female with Systolic/Diastolic CHF (EF 15%), MO, Obesity Hypoventilation, DM, GERD, OA, Anemia presents to ED for evaluation. Pt states that she has "been feeling sick" for the past 2 weeks. Pt reports shorteness of breath, leg edema, productive cough over the past 2 weeks, with persistent symptoms over the same time frame. Pt also acknowledges Orthopnea/PND, Decreased exercise tolerance, dypsnea on exertion, and dypsnea at rest. Pt reports compliance with medications. Pt transported to [facility] via private vehicle. Pt seen and evaluated in ED and found to have Acute Hypoxemic Respiratory Failure, CHF Decompensation. Pt admitted to telemetry and treated with diuresis and supplemental oxygen with persistent symptoms. Pt subsequently treated with NIPPV. Cardiology team consulted in ED. Pt denies fever, chills, CP, Palpitations, NVD, Trauma, BRBPR, Skin rash, or recent ill contacts. Objective - Constitutional Vitals: Vital Signs - 12hr 06/08/19 06/08/19 06/08/19 02:59 04:28 07:33 Temperature 98.2 F Pulse Rate 104 H 106 H Respiratory 27 H 32 H 24 Rate Blood Pressure 146/81 O2 Sat by Pulse 100 98 100 Oximetry 06/08/19 06/08/19 06/08/19 07:46 09:05 09:22 Temperature 98.5 F Pulse Rate 106 H Respiratory 18 Rate Blood Pressure 148/86 148/86 O2 Sat by Pulse 98 Oximetry 06/08/19 06/08/19 11:10 12:00 Temperature 97.5 F L Pulse Rate 112 H Respiratory 20 18 Rate Blood Pressure 131/84 O2 Sat by Pulse 98 98 Oximetry General appearance: Present: no acute distress, well-nourished - EENT Eyes: PERRL, EOM intact ENT: hearing intact, clear oral mucosa Ears: bilateral: normal - Neck Neck: supple, normal ROM - Respiratory Respiratory effort: normal Respiratory: bilateral: CTA, rales - Breasts Breasts: normal - Cardiovascular Heart rate: 78 Rhythm: regular Heart Sounds: Present: S1 & S2. Absent: gallop, rub Extremities: pulses intact, No edema, normal color, Full ROM - Gastrointestinal General gastrointestinal: Present: soft, non-tender, non-distended, normal bowel sounds Rectal Exam: deferred - Genitourinary Female genitourinary: normal - Integumentary Integumentary: clear, warm, dry - Musculoskeletal Musculoskeletal: 1, strength equal bilaterally - Neurologic Neurologic: moves all extremities - Psychiatric Psychiatric: memory intact, appropriate mood/affect, intact judgment & insight - Allied health notes Allied health notes reviewed: nursing, case management - Labs CBC & Chem 7: 06/07/19 22:02 06/07/19 22:02 Labs: Abnormal lab results 06/07/19 06/07/19 06/07/19 Range/Units 22:02 22:02 22:50 RBC 2.93 L (3.65-5.03) M/mm3 Hgb 9.7 L (10.1-14.3) gm/dl Hct 30.2 L (30.3-42.9) % MCV 103 H (79-97) fl MCH 33 H (28-32) pg RDW 17.6 H (13.2-15.2) % Lymph % (Auto) 11.0 L (13.4-35.0) % [place] % (Auto) 8.0 H (0.0-7.3) % Lymph # 0.8 L (1.2-5.4) K/mm3 Seg Neutrophils % 80.2 H (40.0-70.0) % POC ABG pH 7.454 H (7.35-7.45) POC ABG pCO2 24.2 L (35-45) Potassium 3.4 L (3.6-5.0) mmol/L Carbon Dioxide 16 L (22-30) mmol/L BUN 19 H (7-17) mg/dL Glucose 428 H (65-100) mg/dL POC Glucose (70-105) Lactic Acid (0.7-2.0) mmol/L NT-Pro-B Natriuret Pep (0-900) pg/mL 06/07/19 06/07/19 06/07/19 Range/Units 23:02 23:02 23:46 RBC (3.65-5.03) M/mm3 Hgb (10.1-14.3) gm/dl Hct (30.3-42.9) % MCV (79-97) fl MCH (28-32) pg RDW (13.2-15.2) % Lymph % (Auto) (13.4-35.0) % [place] % (Auto) (0.0-7.3) % Lymph # (1.2-5.4) K/mm3 Seg Neutrophils % (40.0-70.0) % POC ABG pH (7.35-7.45) POC ABG pCO2 (35-45) Potassium (3.6-5.0) mmol/L Carbon Dioxide (22-30) mmol/L BUN (7-17) mg/dL Glucose (65-100) mg/dL POC Glucose 414 H (70-105) Lactic Acid 2.70 H* (0.7-2.0) mmol/L NT-Pro-B Natriuret Pep 50887 H (0-900) pg/mL 06/08/19 Range/Units 01:08 RBC (3.65-5.03) M/mm3 Hgb (10.1-14.3) gm/dl Hct (30.3-42.9) % MCV (79-97) fl MCH (28-32) pg RDW (13.2-15.2) % Lymph % (Auto) (13.4-35.0) % [place] % (Auto) (0.0-7.3) % Lymph # (1.2-5.4) K/mm3 Seg Neutrophils % (40.0-70.0) % POC ABG pH (7.35-7.45) POC ABG pCO2 (35-45) Potassium (3.6-5.0) mmol/L Carbon Dioxide (22-30) mmol/L BUN (7-17) mg/dL Glucose (65-100) mg/dL POC Glucose 329 H (70-105) Lactic Acid (0.7-2.0) mmol/L NT-Pro-B Natriuret Pep (0-900) pg/mL CXR: IMPRESSION: 1. Bilateral perihilar parenchymal opacities are present in pattern most likely reflecting pulmonary edema. - Imaging and cardiology Chest x-ray: report reviewed
[2019-06-08] MEDS: DICLOFENAC SODIUM 1% TOPICAL GEL 100 GM TP SCH ×2 (15:16→22:42)
[2019-06-08] MEDS: metFORMIN 500 MG TAB PO SCH ×2 (15:39→17:27)
[2019-06-08] MEDS: INSULIN NPH/REGULAR 70/30 INJ SUB-Q SCH (22:36)
[2019-06-08] MEDS: OXYBUTYNIN 5 MG TAB PO SCH (22:41)
[2019-06-09] MEDS: FUROSEMIDE 40 MG/4 ML INJ IV SCH ×2 (05:33→17:39)
[2019-06-09] MEDS: LEVOTHYROXINE 112 MCG TAB PO SCH (05:33)
[2019-06-09] MEDS: INSULIN LISPRO 100 UNIT/ML SUB-Q SCH ×5 (08:00→21:33)
[2019-06-09] MEDS: metFORMIN 500 MG TAB PO SCH (08:31)
[2019-06-09] MEDS: GABAPENTIN 300 MG CAP PO SCH ×3 (08:31→21:35)
[2019-06-09] MEDS: OMEGA-3 FATTY ACIDS/FISH OIL 1 GRAM CAP PO SCH (10:18)
[2019-06-09] MEDS: SUCRALFATE 1 GM TAB PO SCH ×2 (10:18→21:30)
[2019-06-09] MEDS: HEPARIN 5,000 UNIT/1 ML VIAL SUB-Q SCH ×2 (10:19→21:34)
[2019-06-09] MEDS: DICLOFENAC SODIUM 1% TOPICAL GEL 100 GM TP SCH ×2 (10:19→21:32)
[2019-06-09] MEDS: FAMOTIDINE 20 MG TAB PO SCH ×2 (10:19→21:30)
[2019-06-09] MEDS: VENLAFAXINE 75 MG TAB PO SCH (10:19)
[2019-06-09] MEDS: ASPIRIN 81 MG TAB CHEW PO SCH (10:19)
[2019-06-09] MEDS: allopurinoL 300 MG TAB PO SCH (10:19)
[2019-06-09] MEDS: SPIRONOLACTONE 25 MG TAB PO SCH (10:20)
[2019-06-09] MEDS: carvediloL 3.125 MG TAB PO SCH ×2 (10:21→21:32)
[2019-06-09] MEDS: INSULIN NPH/REGULAR 70/30 INJ SUB-Q SCH ×3 (10:29→21:33)
[2019-06-09] MEDS: MEGESTROL 40 MG TAB PO SCH ×3 (13:29→21:34)
--- NOTE | 2019-06-09 13:41 | Progress Note ---
Assessment and Plan clinically imporoved cont iv lasix/bb/aldactone ? not on luis miguel/arb - ? recent [place] will follow lifevest in place - no sig arrhythmias on tele - Patient Problems (1) Acute on chronic HFrEF (heart failure with reduced ejection fraction) Current Visit: Yes Status: Acute (2) Acute respiratory failure with hypoxia Current Visit: Yes Status: Acute (3) Diabetes mellitus with hyperglycemia Current Visit: Yes Status: Acute (4) GERD (gastroesophageal reflux disease) Current Visit: Yes Status: Acute Qualifiers: Esophagitis presence: without esophagitis Qualified Code(s): K21.9 - Gastro-esophageal reflux disease without esophagitis (5) Diabetes Current Visit: Yes Status: Chronic (6) Obesity hypoventilation syndrome Current Visit: Yes Status: Chronic (7) Cardiomyopathy Current Visit: No Status: Chronic (8) HTN (hypertension) Current Visit: No Status: Chronic Qualifiers: Hypertension type: essential hypertension Qualified Code(s): I10 - Essential (primary) hypertension (9) IDDM (insulin dependent diabetes mellitus) Current Visit: No Status: Chronic (10) Obesity Current Visit: No Status: Chronic (11) Sleep apnea Current Visit: No Status: Chronic Subjective Date of service: 06/09/19 Principal diagnosis: CHF exacerbation Interval history: feels better Objective Vital Signs Temp Pulse Pulse Resp BP BP Pulse Ox 06/09/19 11:24 98.1 F 92 H 18 136/71 97 06/09/19 10:21 74 110/72 06/09/19 10:20 93 H 107/77 97 06/09/19 09:13 89 21 97 06/09/19 08:14 97.9 F 80 18 130/79 98 06/09/19 08:10 97.9 F 79 19 157/90 98 06/09/19 08:02 97.5 F L 93 H 18 130/79 97 06/09/19 07:29 97 06/09/19 03:44 98.0 F 100 H 18 129/81 96 06/09/19 03:12 105 H 06/08/19 23:18 98.3 F 105 H 18 139/87 98 06/08/19 22:41 103 H 125/80 06/08/19 22:00 100 06/08/19 21:03 99 06/08/19 20:21 98.1 F 102 H 18 125/80 98 06/08/19 19:40 104 H 06/08/19 16:57 108 H 32 H 100 06/08/19 16:18 97.7 F 101 H 18 124/66 99 - Physical Examination HEENT: Positive: PERRL Neck: Positive: neck supple Neuro: Positive: Grossly Intact Abdomen: Positive: Unremarkable Skin: Positive: Clear Musculoskeletal: Decreased Range of Motion Extremities: Present: +1 Edema (generalized) - Labs and Meds Cardiac Enzymes 06/07/19 06/07/19 06/07/19 Range/Units 22:02 22:02 22:50 WBC 7.2 (4.5-11.0) K/mm3 RBC 2.93 L (3.65-5.03) M/mm3 Hgb 9.7 L (10.1-14.3) gm/dl Hct 30.2 L (30.3-42.9) % MCV 103 H (79-97) fl MCH 33 H (28-32) pg MCHC 32 (30-34) % RDW 17.6 H (13.2-15.2) % Plt Count 143 (140-440) K/mm3 Lymph % (Auto) 11.0 L (13.4-35.0) % [place] % (Auto) 8.0 H (0.0-7.3) % Eos % (Auto) 0.2 (0.0-4.3) % Baso % (Auto) 0.6 (0.0-1.8) % Lymph # 0.8 L (1.2-5.4) K/mm3 [place] # 0.6 (0.0-0.8) K/mm3 Eos # 0.0 (0.0-0.4) K/mm3 Baso # 0.0 (0.0-0.1) K/mm3 Seg Neutrophils % 80.2 H (40.0-70.0) % Seg Neutrophils # 5.8 (1.8-7.7) K/mm3 POC ABG pH 7.454 H (7.35-7.45) POC ABG pCO2 24.2 L (35-45) POC ABG pO2 105 (80-105) POC ABG HCO3 17.0 (22-26 mml/L) POC ABG Total CO2 18 (23-27mmol/L) POC ABG O2 Sat 98 POC ABG Base Excess -7 ((-2) - (+3)mmol/L) FiO2 30 % Sodium 137 (137-145) mmol/L Potassium 3.4 L (3.6-5.0) mmol/L Chloride 101.6 (98-107) mmol/L Carbon Dioxide 16 L (22-30) mmol/L Anion Gap 23 mmol/L BUN 19 H (7-17) mg/dL Creatinine 1.1 (0.7-1.2) mg/dL Estimated GFR > 60 ml/min BUN/Creatinine Ratio 17 % Glucose 428 H (65-100) mg/dL POC Glucose (70-105) Lactic Acid (0.7-2.0) mmol/L Calcium 8.8 (8.4-10.2) mg/dL Troponin T 0.012 (0.00-0.029) ng/mL NT-Pro-B Natriuret Pep (0-900) pg/mL 06/07/19 06/07/19 06/07/19 Range/Units 23:02 23:02 23:46 WBC (4.5-11.0) K/mm3 RBC (3.65-5.03) M/mm3 Hgb (10.1-14.3) gm/dl Hct (30.3-42.9) % MCV (79-97) fl MCH (28-32) pg MCHC (30-34) % RDW (13.2-15.2) % Plt Count (140-440) K/mm3 Lymph % (Auto) (13.4-35.0) % [place] % (Auto) (0.0-7.3) % Eos % (Auto) (0.0-4.3) % Baso % (Auto) (0.0-1.8) % Lymph # (1.2-5.4) K/mm3 [place] # (0.0-0.8) K/mm3 Eos # (0.0-0.4) K/mm3 Baso # (0.0-0.1) K/mm3 Seg Neutrophils % (40.0-70.0) % Seg Neutrophils # (1.8-7.7) K/mm3 POC ABG pH (7.35-7.45) POC ABG pCO2 (35-45) POC ABG pO2 (80-105) POC ABG HCO3 (22-26 mml/L) POC ABG Total CO2 (23-27mmol/L) POC ABG O2 Sat POC ABG Base Excess ((-2) - (+3)mmol/L) FiO2 % Sodium (137-145) mmol/L Potassium (3.6-5.0) mmol/L Chloride (98-107) mmol/L Carbon Dioxide (22-30) mmol/L Anion Gap mmol/L BUN (7-17) mg/dL Creatinine (0.7-1.2) mg/dL Estimated GFR ml/min BUN/Creatinine Ratio % Glucose (65-100) mg/dL POC Glucose 414 H (70-105) Lactic Acid 2.70 H* (0.7-2.0) mmol/L Calcium (8.4-10.2) mg/dL Troponin T (0.00-0.029) ng/mL NT-Pro-B Natriuret Pep 32016 H (0-900) pg/mL 06/08/19 06/08/19 06/08/19 Range/Units 01:08 03:50 14:03 WBC (4.5-11.0) K/mm3 RBC (3.65-5.03) M/mm3 Hgb (10.1-14.3) gm/dl Hct (30.3-42.9) % MCV (79-97) fl MCH (28-32) pg MCHC (30-34) % RDW (13.2-15.2) % Plt Count (140-440) K/mm3 Lymph % (Auto) (13.4-35.0) % [place] % (Auto) (0.0-7.3) % Eos % (Auto) (0.0-4.3) % Baso % (Auto) (0.0-1.8) % Lymph # (1.2-5.4) K/mm3 [place] # (0.0-0.8) K/mm3 Eos # (0.0-0.4) K/mm3 Baso # (0.0-0.1) K/mm3 Seg Neutrophils % (40.0-70.0) % Seg Neutrophils # (1.8-7.7) K/mm3 POC ABG pH (7.35-7.45) POC ABG pCO2 (35-45) POC ABG pO2 (80-105) POC ABG HCO3 (22-26 mml/L) POC ABG Total CO2 (23-27mmol/L) POC ABG O2 Sat POC ABG Base Excess ((-2) - (+3)mmol/L) FiO2 % Sodium (137-145) mmol/L Potassium (3.6-5.0) mmol/L Chloride (98-107) mmol/L Carbon Dioxide (22-30) mmol/L Anion Gap mmol/L BUN (7-17) mg/dL Creatinine (0.7-1.2) mg/dL Estimated GFR ml/min BUN/Creatinine Ratio % Glucose (65-100) mg/dL POC Glucose 329 H 466 H (70-105) Lactic Acid 1.90 (0.7-2.0) mmol/L Calcium (8.4-10.2) mg/dL Troponin T (0.00-0.029) ng/mL NT-Pro-B Natriuret Pep (0-900) pg/mL 06/08/19 06/08/19 06/09/19 Range/Units 16:31 20:46 08:15 WBC (4.5-11.0) K/mm3 RBC (3.65-5.03) M/mm3 Hgb (10.1-14.3) gm/dl Hct (30.3-42.9) % MCV (79-97) fl MCH (28-32) pg MCHC (30-34) % RDW (13.2-15.2) % Plt Count (140-440) K/mm3 Lymph % (Auto) (13.4-35.0) % [place] % (Auto) (0.0-7.3) % Eos % (Auto) (0.0-4.3) % Baso % (Auto) (0.0-1.8) % Lymph # (1.2-5.4) K/mm3 [place] # (0.0-0.8) K/mm3 Eos # (0.0-0.4) K/mm3 Baso # (0.0-0.1) K/mm3 Seg Neutrophils % (40.0-70.0) % Seg Neutrophils # (1.8-7.7) K/mm3 POC ABG pH (7.35-7.45) POC ABG pCO2 (35-45) POC ABG pO2 (80-105) POC ABG HCO3 (22-26 mml/L) POC ABG Total CO2 (23-27mmol/L) POC ABG O2 Sat POC ABG Base Excess ((-2) - (+3)mmol/L) FiO2 % Sodium (137-145) mmol/L Potassium (3.6-5.0) mmol/L Chloride (98-107) mmol/L Carbon Dioxide (22-30) mmol/L Anion Gap mmol/L BUN (7-17) mg/dL Creatinine (0.7-1.2) mg/dL Estimated GFR ml/min BUN/Creatinine Ratio % Glucose (65-100) mg/dL POC Glucose 415 H 305 H 196 H (70-105) Lactic Acid (0.7-2.0) mmol/L Calcium (8.4-10.2) mg/dL Troponin T (0.00-0.029) ng/mL NT-Pro-B Natriuret Pep (0-900) pg/mL 06/09/19 06/09/19 Range/Units 10:38 11:54 WBC (4.5-11.0) K/mm3 RBC (3.65-5.03) M/mm3 Hgb (10.1-14.3) gm/dl Hct (30.3-42.9) % MCV (79-97) fl MCH (28-32) pg MCHC (30-34) % RDW (13.2-15.2) % Plt Count (140-440) K/mm3 Lymph % (Auto) (13.4-35.0) % [place] % (Auto) (0.0-7.3) % Eos % (Auto) (0.0-4.3) % Baso % (Auto) (0.0-1.8) % Lymph # (1.2-5.4) K/mm3 [place] # (0.0-0.8) K/mm3 Eos # (0.0-0.4) K/mm3 Baso # (0.0-0.1) K/mm3 Seg Neutrophils % (40.0-70.0) % Seg Neutrophils # (1.8-7.7) K/mm3 POC ABG pH (7.35-7.45) POC ABG pCO2 (35-45) POC ABG pO2 (80-105) POC ABG HCO3 (22-26 mml/L) POC ABG Total CO2 (23-27mmol/L) POC ABG O2 Sat POC ABG Base Excess ((-2) - (+3)mmol/L) FiO2 % Sodium (137-145) mmol/L Potassium (3.6-5.0) mmol/L Chloride (98-107) mmol/L Carbon Dioxide (22-30) mmol/L Anion Gap mmol/L BUN (7-17) mg/dL Creatinine (0.7-1.2) mg/dL Estimated GFR ml/min BUN/Creatinine Ratio % Glucose (65-100) mg/dL POC Glucose 285 H 319 H (70-105) Lactic Acid (0.7-2.0) mmol/L Calcium (8.4-10.2) mg/dL Troponin T (0.00-0.029) ng/mL NT-Pro-B Natriuret Pep (0-900) pg/mL - Imaging and Cardiology Echo: report reviewed (01/2019: EF 15 to 20%, moderate MR, mild TR, RVSP 37) Repolarization changes or abnormalities: nonspecific abnormality, ST segment, and/or T wave (diffuse)
--- NOTE | 2019-06-09 14:00 | Progress Note ---
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 Pt states that she has "been feeling sick" for the past 2 weeks. Pt reports shortness of breath, leg edema, productive cough over the past 2 weeks, with persistent symptoms over the same time frame. Pt also acknowledges Orthopnea/PND, Decreased exercise tolerance, dypsnea on exertion, and dypsnea at rest. Pt reports compliance with medications. Pt seen and evaluated in ED and found to have Acute Hypoxemic Respiratory Failure, CHF Decompensation. Pt admitted to telemetry and treated with diuresis and supplemental oxygen with persistent symptoms. Pt subsequently treated with NIPPV. Cardiology team consulted in ED. Pt denies fever, chills, CP, Palpitations, NVD, Trauma, BRBPR, Skin rash, or recent ill contacts. Acute congestive heart failure Current Visit: Yes Status: Acute Qualifiers: Heart failure type: combined systolic and diastolic Qualified Code(s): I50.41 - Acute combined systolic (congestive) and diastolic (congestive) heart failure Plan to address problem: IV Lasix q12 and KCL Patient currently not on ZACHARY or ARB there is a concern of recent renal failure. Nephrology has been consulted at the request of cardiology. Continue diuresis at this time Acute respiratory failure with hypoxia Current Visit: Yes Status: Acute Plan to address problem: Supplemental oxygen, nebulizer therapy, pulse oximetry, NIPPV, chest x ray. Diabetes Current Visit: Yes Status: Acute Plan to address Adjusted Insulin dosage to 45 units BID Discontinue Glipizide--no need for Glipizide bcoz patient is getting Insulin on a regular basis. GERD (gastroesophageal reflux disease) Current Visit: Yes Status: Acute Qualifiers: Esophagitis presence: without esophagitis Qualified Code(s): K21.9 - Gastro-esophageal reflux disease without esophagitis Plan to address problem: PPI therapy, Cardiomyopathy Current Visit: No Status: Chronic HTN (hypertension) Current Visit: No Status: Chronic Qualifiers: Hypertension type: essential hypertension Qualified Code(s): I10 - Essential (primary) hypertension Morbid obesity Weight loss modalities discussed in detail patient verbalized understanding obesity hypoventilation syndrome Current Visit: Yes Status: Acute Plan to address problem: Supplemental oxygen, nebulizer therapy, NIPPV nightly, pulse oximetry, chest x ray DVT prophylaxis Current Visit: No Status: Acute Plan to address problem: SCD to BLE while in bed, supportive care. prophylactic heparin Continue current treatment will obtain physical therapy evaluation and treat and also nephrology consult to assist with management of diuresis. Anticipate discharge in the next 24 hours. Fall precautions, Aspiration precautions. History Interval history: Patient seen and examined this morning still remains lethargic still reports chest pain although improving still with cough nonproductive. Patient reports that she is minimally ambulatory at home. Hospitalist Physical - Physical exam Narrative exam: VITAL SIGNS: Reviewed. GENERAL: The patient appears normally developed, morbidly obese vital signs as documented. HEAD: No signs of head trauma. EYES: Pupils are equal. Extraocular motions intact. EARS: Hearing grossly intact. MOUTH: Oropharynx is normal. NECK: No adenopathy, no JVD. CHEST: Chest with crackles breath sounds bilaterally. No wheezes, rales, or rhonchi. CARDIAC: Regular rate and rhythm. S1 and S2, without murmurs, gallops, or rubs. VASCULAR: +1 pitting edema bilaterally upper and lower extremity. Peripheral pulses normal and equal in all extremities. ABDOMEN: Soft, non tender and non distended. No rebound or guarding, and no masses palpated. Bowel Sounds normal. MUSCULOSKELETAL: Good range of motion of all major joints. Extremities without clubbing, cyanosis. +1 pitting edema bilaterally upper and lower extremity NEUROLOGIC EXAM: Alert and oriented x 3 No focal sensory or strength deficits. Speech normal. Follows commands. PSYCHIATRIC: Mood normal. SKIN: detial exam as documented in skin assessment - Constitutional Vitals: Temp Pulse Resp BP Pulse Ox 98.1 F 92 H 18 136/71 97 06/09/19 11:24 06/09/19 11:24 06/09/19 11:24 06/09/19 11:24 06/09/19 11:24 General appearance: Present: mild distress Results - Labs CBC & Chem 7: 06/07/19 22:02 06/07/19 22:02 Labs: Laboratory Last Values WBC 7.2 K/mm3 (4.5-11.0) 06/07/19 22:02 RBC 2.93 M/mm3 (3.65-5.03) L 06/07/19 22:02 Hgb 9.7 gm/dl (10.1-14.3) L 06/07/19 22:02 Hct 30.2 % (30.3-42.9) L 06/07/19 22:02 MCV 103 fl (79-97) H 06/07/19 22:02 MCH 33 pg (28-32) H 06/07/19 22:02 MCHC 32 % (30-34) 06/07/19 22:02 RDW 17.6 % (13.2-15.2) H 06/07/19 22:02 Plt Count 143 K/mm3 (140-440) 06/07/19 22:02 Lymph % (Auto) 11.0 % (13.4-35.0) L 06/07/19 22:02 [place] % (Auto) 8.0 % (0.0-7.3) H 06/07/19 22:02 Eos % (Auto) 0.2 % (0.0-4.3) 06/07/19 22:02 Baso % (Auto) 0.6 % (0.0-1.8) 06/07/19 22:02 Lymph # 0.8 K/mm3 (1.2-5.4) L 06/07/19 22:02 [place] # 0.6 K/mm3 (0.0-0.8) 06/07/19 22:02 Eos # 0.0 K/mm3 (0.0-0.4) 06/07/19 22:02 Baso # 0.0 K/mm3 (0.0-0.1) 06/07/19 22:02 Seg Neutrophils % 80.2 % (40.0-70.0) H 06/07/19 22:02 Seg Neutrophils # 5.8 K/mm3 (1.8-7.7) 06/07/19 22:02 POC ABG pH 7.454 (7.35-7.45) H 06/07/19 22:50 POC ABG pCO2 24.2 (35-45) L 06/07/19 22:50 POC ABG pO2 105 (80-105) 06/07/19 22:50 POC ABG HCO3 17.0 (22-26 mml/L) 06/07/19 22:50 POC ABG Total CO2 18 (23-27mmol/L) 06/07/19 22:50 POC ABG O2 Sat 98 06/07/19 22:50 POC ABG Base Excess -7 ((-2) - (+3)mmol/L) 06/07/19 22:50 FiO2 30 % 06/07/19 22:50 Sodium 137 mmol/L (137-145) 06/07/19 22:02 Potassium 3.4 mmol/L (3.6-5.0) L 06/07/19 22:02 Chloride 101.6 mmol/L (98-107) 06/07/19 22:02 Carbon Dioxide 16 mmol/L (22-30) L 06/07/19 22:02 Anion Gap 23 mmol/L 06/07/19 22:02 BUN 19 mg/dL (7-17) H 06/07/19 22:02 Creatinine 1.1 mg/dL (0.7-1.2) 06/07/19 22:02 Estimated GFR > 60 ml/min 06/07/19 22:02 BUN/Creatinine Ratio 17 % 06/07/19 22:02 Glucose 428 mg/dL (65-100) H 06/07/19 22:02 POC Glucose 319 (70-105) H 06/09/19 11:54 Lactic Acid 1.90 mmol/L (0.7-2.0) 06/08/19 03:50 Calcium 8.8 mg/dL (8.4-10.2) 06/07/19 22:02 Troponin T 0.012 ng/mL (0.00-0.029) 06/07/19 22:02 NT-Pro-B Natriuret Pep 74381 pg/mL (0-900) H 06/07/19 23:02 Active Medications - Current Medications Current Medications: Generic Name Dose Route Start Last Admin Trade Name Freq PRN Reason Stop Dose Admin Acetaminophen 650 mg 06/07/19 23:26 06/08/19 14:00 Tylenol PO 650 mg Q4H PRN Administration Pain MILD(1-3)/Fever >100.5/BANKS Albuterol 2.5 mg 06/07/19 23:26 Proventil IH Q4HRT PRN Shortness Of Breath Allopurinol 300 mg 06/08/19 10:00 06/09/19 10:19 Zyloprim PO 300 mg QDAY ALON Administration Amitriptyline HCl 25 mg 06/08/19 00:30 06/08/19 22:49 Elavil PO 25 mg QHS ALON Administration Aspirin 81 mg 06/08/19 10:00 06/09/19 10:19 Baby Aspirin PO 81 mg QDAY ALON Administration Atorvastatin Calcium 20 mg 06/08/19 10:00 06/09/19 10:19 Lipitor PO 20 mg DAILY ALON Administration Carvedilol 3.125 mg 06/08/19 10:00 06/09/19 10:21 Coreg PO 3.125 mg BID ALON Administration Dextrose 50 ml 06/08/19 08:31 D50w (25gm) Syringe IV Q30MIN PRN Hypoglycemia Protocol Diclofenac Sodium 1 applic 06/08/19 10:00 06/09/19 10:19 Diclofenac 1% TP 1 applic BID ALON Administration Famotidine 20 mg 06/08/19 10:00 06/09/19 10:19 Pepcid PO 20 mg BID ALON Administration Fish Oil 1,000 mg 06/08/19 10:00 06/09/19 10:18 Fish Oil PO 1,000 mg DAILY ALON Administration Furosemide 40 mg 06/08/19 06:00 06/09/19 05:33 Lasix IV 40 mg BID@0600,1800 ALON Administration Gabapentin 300 mg 06/08/19 08:00 06/09/19 13:23 Gabapentin PO 300 mg TID ALON Administration Heparin Sodium (Porcine) 5,000 unit 06/08/19 10:00 06/09/19 10:19 Heparin SUB-Q 5,000 unit Q12HR ALON Administration Insulin Human Isoph/Insulin Regular 50 unit 06/09/19 13:00 06/09/19 13:23 Humulin 70/30 SUB-Q 50 unit BID ALON Administration Insulin Human Lispro 0 unit 06/08/19 09:00 06/09/19 11:51 Humalog SUB-Q 6 unit ACHS ALON Administration Protocol Levothyroxine Sodium 112 mcg 06/08/19 06:00 06/09/19 05:33 Synthroid PO 112 mcg QDAY@0600 ALON Administration Megestrol Acetate 40 mg 06/09/19 14:00 06/09/19 13:29 Megestrol PO 40 mg QID ALON Administration Miscellaneous Medication 1 drop 06/08/19 10:00 Cyclosporine [Restasis 0.05%] OU BID ALON Ondansetron HCl 4 mg 06/07/19 23:26 Zofran IV Q8H PRN Nausea And Vomiting Oxybutynin Chloride 5 mg 06/08/19 22:00 06/08/19 22:41 Ditropan PO 5 mg HS ALON Administration Sodium Chloride 10 ml 06/08/19 10:00 06/09/19 10:19 Sodium Chloride Flush Syringe 10 Ml IV 10 ml BID ALON Administration Sodium Chloride 10 ml 06/07/19 23:26 06/09/19 05:33 Sodium Chloride Flush Syringe 10 Ml IV 10 ml PRN PRN Administration LINE FLUSH Spironolactone 25 mg 06/08/19 10:00 06/09/19 10:20 Aldactone PO 25 mg QDAY ALON Administration Sucralfate 1 gm 06/08/19 10:00 06/09/19 10:18 Carafate PO 1 gm BID ALON Administration Venlafaxine HCl 75 mg 06/08/19 10:00 06/09/19 10:19 Effexor PO 75 mg QDAY ALON Administration Nutrition/Malnutrition Assess - Dietary Evaluation Nutrition/Malnutrition Findings: Nutrition Notes Start: 06/08/19 12:30 Freq: Status: Active Protocol: Document 06/08/19 12:30 LM (Rec: 06/08/19 12:47 LM [id number]) Nutrition Notes Need for Assessment generated from: MD Order,Education Initial or Follow up Assessment Current Diagnosis Diabetes,Hypertension,Heart Failure,Respiratory Failure Other Pertinent Diagnosis GERD, OA Current Diet Cardiac diet Labs/Tests POC glu 329 Pertinent Medications Lasix Height 5 ft 3 in Weight 122.1 kg Usual Body Weight 118 kg [place] Body Weight (kg) 52.27 BMI 47.7 Weight change and time frame Pt states 4 lb wt loss 4 months ago. Pt currently weighs more than UBW. Pt with leg edema. Weight Status Morbidly Obese Subjective/Other Information MD consult for DM diet education. Pt stated not eating well. Pt only drank milk and coffee at breakfast. Pt has received DM eduaction in the past but wanted education. Also discussed healthy eating for hypertension with pt. Burn Absent Trauma Absent GI Symptoms None Current % PO Negligible Minimum of two criteria No Fluid Accumulation Mild (non-severe) #2 Nutrition Diagnosis Food and nutrition-related knowledge deficit Etiology pt not receiving DM and hypertension diet education in years, pt noncompliant with DM and hypertension diet As Evidenced by Signs and Symptoms Pt needing diet education, pt eating processed meats, POC glu 329 #1 Nutrition Diagnosis Inadequate oral intake Etiology Chronic illness As Evidenced by Signs and Symptoms eating less than 25% of breakfast Is patient on ventilator? No Is Patient Ambulatory and/or Out of Bed No REE-([facility]-confined to bed) 2098.728 Kcal/Kg value to use for calculation 13 Approximate Energy Requirements Using 1587 kcal/Kg Calculation Used for Recommendations Kcal/kg Additional Notes Protein: 87-104g (1-1.2) AdjBW 87 kg Fluid needs: 1 ml/kcal or per MD Nutrition Intervention Change Diet Order: Cardiac/consistent CHO Teaching Recipient Patient Learning Readiness Good Teaching Methods Discussion,Handout Response to Teaching Verbalize understanding Education Handouts Provided Carbohydrate Counting for People with Diabetes Barriers to Learning Motivation RD phone number provided Yes Patient aware of follow up options Yes Goal #1 Meet at least 75% of energy and protein needs Anticipated Discharge Needs: Cardiac/consistent CHO Follow-Up By: 06/11/19 Additional Comments F/U for intakes
[2019-06-09] MEDS: AMITRIPTYLINE 25 MG TAB PO SCH (21:30)
[2019-06-09] MEDS: OXYBUTYNIN 5 MG TAB PO SCH (21:30)
[2019-06-10] MEDS: FUROSEMIDE 40 MG/4 ML INJ IV SCH ×2 (05:13→18:40)
[2019-06-10] MEDS: LEVOTHYROXINE 112 MCG TAB PO SCH (05:13)
[2019-06-10] MEDS ORDERED: INSULIN NPH/REGULAR 70/30 INJ SUB-Q SCH (08:00)
[2019-06-10 08:14] LABS: Hematocrit 30.7 % (30.3-42.9); Mean Corpuscular HGB Conc 33 % (30-34); Mean Corpuscular Volume 101 fl (79-97); Platelet Count 190 K/mm3 (140-440); Red Blood Count 3.03 M/mm3 (3.65-5.03); Red Cell Distribution Width 16.5 % (13.2-15.2)
[2019-06-10] MEDS: INSULIN LISPRO 100 UNIT/ML SUB-Q SCH ×4 (08:39→23:24)
[2019-06-10] MEDS: GABAPENTIN 300 MG CAP PO SCH ×3 (08:58→22:37)
[2019-06-10] MEDS ORDERED: LISPRO SUB-Q SCH (10:00)
[2019-06-10] MEDS ORDERED: INSULIN LISPRO PROTAMIN SUB-Q SCH (10:00)
[2019-06-10] MEDS: allopurinoL 300 MG TAB PO SCH (10:33)
[2019-06-10] MEDS: FAMOTIDINE 20 MG TAB PO SCH ×2 (10:33→22:31)
[2019-06-10] MEDS: SUCRALFATE 1 GM TAB PO SCH ×2 (10:33→22:30)
[2019-06-10] MEDS: HEPARIN 5,000 UNIT/1 ML VIAL SUB-Q SCH ×2 (10:34→22:32)
[2019-06-10] MEDS: OMEGA-3 FATTY ACIDS/FISH OIL 1 GRAM CAP PO SCH (10:34)
[2019-06-10] MEDS: DICLOFENAC SODIUM 1% TOPICAL GEL 100 GM TP SCH ×2 (10:34→22:32)
[2019-06-10] MEDS: VENLAFAXINE 75 MG TAB PO SCH (10:34)
[2019-06-10] MEDS: ASPIRIN 81 MG TAB CHEW PO SCH (10:34)
[2019-06-10] MEDS: MEGESTROL 40 MG TAB PO SCH ×4 (10:35→22:32)
[2019-06-10] MEDS: carvediloL 3.125 MG TAB PO SCH ×2 (10:35→22:30)
[2019-06-10] MEDS: SPIRONOLACTONE 25 MG TAB PO SCH (10:35)
[2019-06-10] MEDS: INSULIN NPH/REGULAR 70/30 INJ SUB-Q SCH ×2 (10:40→23:24)
--- NOTE | 2019-06-10 11:35 | Consultation ---
History of Present Illness - Reason for Consult Consult date: 06/10/19 chronic renal failure - History of Present Illness Mrs. Moore is a 63yo with dilated cardiomyopathy, type II DM and HTN who presented to the hosptial with c/o chest pain - she reports a 1 month hx of intermittent chest pain which worsened over the past 2 weeks. Chest pain was also exacerbated by cough and deep inspiration. She also reports chronic leg swelling and SOB which recently worsened. She is followed by [facility] for stage II CKD - baseline SCr 1.2mg/dL. Outpatient labs were notable K 5.0, SCr 1.79 on May 28, 2019. Aldactone 75mg daily and Losartan 100mg daily were held at that time. Repeat labs notable for K 3.8, SCr 1.38mg/dL on Jun 04, 2019. Per records, in the ED, patient was noticeably SOB. CXR was notable for pulmonary edema. Past History Past Medical History: cancer (L BRCA), diabetes, heart failure, hypertension, renal failure, other (cardiomyopathy) Past Surgical History: hysterectomy, hernia repair, Other (Back surgery) Social history: single. denies: smoking, alcohol abuse, prescription drug abuse Family history: diabetes, hypertension Medications and Allergies Allergies Allergy/AdvReac Type Severity Reaction Status Date / Time Iodinated Contrast Media Allergy Severe FACE Verified 10/03/13 11:59 SWELLING PAPER TAPE Allergy Itching, Uncoded 01/27/15 10:40 BLISTERS SKIN Home Medications Medication Instructions Recorded Confirmed Last Taken Type Famotidine 20 mg PO BID 10/01/13 01/14/19 10/02/13 History 20 MG Fluticasone Propionate [Flonase] 2 spray INNOSTRIL DAILY 10/01/13 01/14/19 10/01/13 History 2 SPRAYS Metformin HCl 1,000 mg PO BIDPC 10/01/13 01/14/19 10/02/13 18:00 History 500 MG cycloSPORINE [Restasis 0.05%] 1 drop OU BID 10/01/13 01/14/19 10/02/13 History 2 DROPS Albuterol Sulfate [Proventil Hfa] 2 puff IH Q6H PRN 01/14/19 01/14/19 Unknown History Allopurinol [Zyloprim] 300 mg PO QDAY 01/14/19 01/14/19 Unknown History Amitriptyline [Elavil] 25 mg PO DAILY 01/14/19 01/14/19 Unknown History AtorvaSTATin [Lipitor] 20 mg PO DAILY 01/14/19 01/14/19 Unknown History Diclofenac 1% [Diclofenac 1% 1 applic TP BID 01/14/19 01/14/19 Unknown History topical gel] Gabapentin 300 mg PO TID 01/14/19 01/14/19 Unknown History Insulin Lispro Protamin/Lispro 40 units SUB-Q QAM 01/14/19 01/14/19 Unknown History [Humalog Mix 75-25 Vial] Insulin Lispro Protamin/Lispro 50 units SUB-Q QPM 01/14/19 01/14/19 Unknown History [Humalog Mix 75-25 Vial] Levothyroxine [Synthroid] 112 mcg PO QDAY 01/14/19 01/14/19 Unknown History Megestrol 40 mg PO QID 01/14/19 01/14/19 Unknown History [place]-3S/Dha/Epa/Fish Oil [[place]-3 1 each PO DAILY 01/14/19 01/14/19 Unknown History Fish Oil 1,000 mg Sfgl] Oxybutynin [Ditropan] 5 mg PO HS 01/14/19 01/14/19 Unknown History Spironolactone [Aldactone] 25 mg PO QDAY 01/14/19 01/14/19 Unknown History Sucralfate [Carafate] 1 gm PO BID 01/14/19 01/14/19 Unknown History Venlafaxine [Effexor] 75 mg PO QDAY 01/14/19 01/14/19 Unknown History glipiZIDE [Glucotrol] 5 mg PO QDAY 01/14/19 01/14/19 Unknown History Aspirin [Aspirin BABY CHEW TAB] 81 mg PO QDAY #30 tab.chew 01/19/19 Unknown Rx Azithromycin [Zithromax TAB] 500 mg PO QDAY #3 tablet 01/19/19 Unknown Rx Furosemide [Lasix TAB] 20 mg PO QDAY #30 tablet 01/19/19 Unknown Rx carvediloL [Coreg] 3.125 mg PO BID #60 tablet 01/19/19 Unknown Rx Active Meds: Active Medications Acetaminophen (Tylenol) 650 mg PO Q4H PRN PRN Reason: Pain MILD(1-3)/Fever >100.5/BANKS Last Admin: 06/08/19 14:00 Dose: 650 mg Documented by: Albuterol (Proventil) 2.5 mg IH Q4HRT PRN PRN Reason: Shortness Of Breath Allopurinol (Zyloprim) 300 mg PO QDAY [facility] Last Admin: 06/10/19 10:33 Dose: 300 mg Documented by: Amitriptyline HCl (Elavil) 25 mg PO QHS [facility] Last Admin: 06/09/19 21:30 Dose: 25 mg Documented by: Aspirin (Baby Aspirin) 81 mg PO QDAY [facility] Last Admin: 06/10/19 10:34 Dose: 81 mg Documented by: Atorvastatin Calcium (Lipitor) 20 mg PO DAILY [facility] Last Admin: 06/10/19 10:33 Dose: 20 mg Documented by: Carvedilol (Coreg) 3.125 mg PO BID [facility] Last Admin: 06/10/19 10:35 Dose: 3.125 mg Documented by: Dextrose (D50w (25gm) Syringe) 50 ml IV Q30MIN PRN; Protocol PRN Reason: Hypoglycemia Diclofenac Sodium (Diclofenac 1%) 1 applic TP BID [facility] Last Admin: 06/10/19 10:34 Dose: 1 applic Documented by: Famotidine (Pepcid) 20 mg PO BID [facility] Last Admin: 06/10/19 10:33 Dose: 20 mg Documented by: Fish Oil (Fish Oil) 1,000 mg PO DAILY [facility] Last Admin: 06/10/19 10:34 Dose: 1,000 mg Documented by: Furosemide (Lasix) 40 mg IV BID@0600,1800 [facility] Last Admin: 06/10/19 05:13 Dose: 40 mg Documented by: Gabapentin (Gabapentin) 300 mg PO TID [facility] Last Admin: 06/10/19 08:58 Dose: 300 mg Documented by: Heparin Sodium (Porcine) (Heparin) 5,000 unit SUB-Q Q12HR [facility] Last Admin: 06/10/19 10:34 Dose: 5,000 unit Documented by: Insulin Human Isoph/Insulin Regular (Humulin 70/30) 50 unit SUB-Q BID [facility] Last Admin: 06/10/19 10:40 Dose: 50 unit Documented by: Insulin Human Lispro (Humalog) 0 unit SUB-Q ACHS [facility]; Protocol Last Admin: 06/10/19 08:39 Dose: Not Given Documented by: Levothyroxine Sodium (Synthroid) 112 mcg PO QDAY@0600 [facility] Last Admin: 06/10/19 05:13 Dose: 112 mcg Documented by: Megestrol Acetate (Megestrol) 40 mg PO QID [facility] Last Admin: 06/10/19 10:35 Dose: 40 mg Documented by: Ondansetron HCl (Zofran) 4 mg IV Q8H PRN PRN Reason: Nausea And Vomiting Oxybutynin Chloride (Ditropan) 5 mg PO HS [facility] Last Admin: 06/09/19 21:30 Dose: 5 mg Documented by: Sodium Chloride (Sodium Chloride Flush Syringe 10 Ml) 10 ml IV BID [facility] Last Admin: 06/10/19 10:58 Dose: 10 ml Documented by: Sodium Chloride (Sodium Chloride Flush Syringe 10 Ml) 10 ml IV PRN PRN PRN Reason: LINE FLUSH Last Admin: 06/09/19 05:33 Dose: 10 ml Documented by: Spironolactone (Aldactone) 25 mg PO QDAY [facility] Last Admin: 06/10/19 10:35 Dose: 25 mg Documented by: Sucralfate (Carafate) 1 gm PO BID [facility] Last Admin: 06/10/19 10:33 Dose: 1 gm Documented by: Venlafaxine HCl (Effexor) 75 mg PO QDAY [facility] Last Admin: 06/10/19 10:34 Dose: 75 mg Documented by: Review of Systems All systems: negative Exam - Vital Signs Vital signs: Vital Signs Temp Pulse Resp BP Pulse Ox 99.0 F 115 H 20 136/87 98 06/07/19 20:38 06/07/19 20:38 06/07/19 20:38 06/07/19 20:38 06/07/19 20:38 - General Appearance General appearance: well-developed, well-nourished EENT: ATNC Respiratory: Decreased Breath Sounds Heart: regular, S1S2 Gastrointestinal: Present: normal. Absent: tenderness, distended Integumentary: no rash, warm and dry Neurologic: no focal deficit, alert and oriented x3 Musculoskeletal: Present: other (trace edema) Psychiatric: cooperative Results - Lab Results 06/10/19 06:21 06/10/19 06:21 Most recent lab results Calcium 9.0 mg/dL (8.4-10.2) 06/10/19 06:21 Assessment and Plan Impression: * SHANTHI (outpatient) on stage II chronic kidney disease --Baseline SCr 1.2mg/dL --SCr 1.38mg/dL on Jun 04, 2019 and SCr 1.79 on May 28, 2019. * Acute on chronic systolic heart failure --TTE (January 2019): LVEF 15-2%, moderate MR, mild TR, and an RVSP of 37. --MPI (January 2019): Negative for ischemia. * Dilated cardiomyopathy * Type II DM * Hx of hyperkalemia (outpatient) - resolved Plan: * Renal function is stable and currently at baseline * Continue diuresis - IV lasix BID * Resume low dose ARB and monitor K closely * Strict I/O * Dose medications for renal function * Avoid potential nephrotoxins
--- NOTE | 2019-06-10 13:17 | Progress Note ---
Assessment and Plan Pt appears to be clinically improving. Cont IV diuresis and GDMT as tolerated. Low dose ARB resumed per nephrology. F/u echo for LV function. LifeVest is in place. The patient has been seen in conjunction with Dr. Peterson Aguirre who agrees with the assessment and plan of care. - Patient Problems (1) Acute HFrEF (heart failure with reduced ejection fraction) Current Visit: Yes Status: Acute (2) Cardiomyopathy Current Visit: Yes Status: Chronic Plan to address problem: presumably nonischemic given negative stress test 01/16/2019 (3) Sinus tachycardia Current Visit: Yes Status: Acute (4) Diabetes mellitus with hyperglycemia Current Visit: Yes Status: Acute (5) Anemia Current Visit: Yes Status: Chronic Qualifiers: Anemia type: unspecified type Qualified Code(s): D64.9 - Anemia, unspecified (6) HTN (hypertension) Current Visit: Yes Status: Chronic Qualifiers: Hypertension type: essential hypertension Qualified Code(s): I10 - Essential (primary) hypertension (7) Sleep apnea Current Visit: Yes Status: Chronic (8) GERD (gastroesophageal reflux disease) Current Visit: Yes Status: Chronic Qualifiers: Esophagitis presence: with esophagitis Qualified Code(s): K21.0 - Gastro- esophageal reflux disease with esophagitis (9) Obesity Current Visit: Yes Status: Chronic (10) CKD Current Visit: Yes Status: Chronic (11) NSVT Current Visit: Yes Status: Chronic Subjective Date of service: 06/10/19 Principal diagnosis: CHF exacerbation Interval history: pt exercising with physical therapy, states she feels a little better, BLE edema improving. LifeVest in Place. in SR with no acute events noted overnight. Objective Last Vital Signs Temp 98.3 F 06/10/19 07:22 Pulse 90 06/10/19 10:35 Resp 20 06/10/19 08:56 BP 111/64 06/10/19 10:35 Pulse Ox 98 06/10/19 08:56 - Physical Examination General: No Apparent Distress HEENT: Positive: PERRL Neck: Positive: neck supple Cardiac: Positive: Reg Rate and Rhythm, S1/S2 Lungs: Positive: Decreased Breath Sounds Neuro: Positive: Grossly Intact Abdomen: Positive: Unremarkable Skin: Positive: Clear Musculoskeletal: Decreased Range of Motion Extremities: Present: +1 Edema (BLE) - Labs and Meds CBC 06/10/19 Range/Units 06:21 WBC 6.4 (4.5-11.0) K/mm3 RBC 3.03 L (3.65-5.03) M/mm3 Hgb 10.0 L (10.1-14.3) gm/dl Hct 30.7 (30.3-42.9) % Plt Count 190 (140-440) K/mm3 Comprehensive Metabolic Panel 06/10/19 Range/Units 06:21 Sodium 145 D (137-145) mmol/L Potassium 3.7 (3.6-5.0) mmol/L Chloride 100.1 (98-107) mmol/L Carbon Dioxide 23 D (22-30) mmol/L BUN 27 H (7-17) mg/dL Creatinine 1.2 (0.7-1.2) mg/dL Glucose 60 L (65-100) mg/dL Calcium 9.0 (8.4-10.2) mg/dL - Imaging and Cardiology Echo: report reviewed (01/2019: EF 15 to 20%, moderate MR, mild TR, RVSP 37) - Telemetry EKG Rhythm: Sinus Rhythm - EKG Sinus rhythms and dysrhythmias: sinus rhythm Repolarization changes or abnormalities: nonspecific abnormality, ST segment, and/or T wave (diffuse)
--- NOTE | 2019-06-10 18:29 | Progress Note ---
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 Pt states that she has "been feeling sick" for the past 2 weeks. Pt reports shortness of breath, leg edema, productive cough over the past 2 weeks, with persistent symptoms over the same time frame. Pt also acknowledges Orthopnea/PND, Decreased exercise tolerance, dypsnea on exertion, and dypsnea at rest. Pt reports compliance with medications. Pt seen and evaluated in ED and found to have Acute Hypoxemic Respiratory Failure, CHF Decompensation. Pt admitted to telemetry and treated with diuresis and supplemental oxygen with persistent symptoms. Pt subsequently treated with NIPPV. Cardiology team consulted in ED. Pt denies fever, chills, CP, Palpitations, NVD, Trauma, BRBPR, Skin rash, or recent ill contacts. Acute congestive heart failure Current Visit: Yes Status: Acute Qualifiers: Heart failure type: combined systolic and diastolic Qualified Code(s): I50.41 - Acute combined systolic (congestive) and diastolic (congestive) heart failure Plan to address problem: IV Lasix q12 and KCL started on ZACHARY. Nephrology has been consulted at the request of cardiology. Continue diuresis at this time- discussed with military professional, Believes that the patient needs a few more days Acute respiratory failure with hypoxia Current Visit: Yes Status: Acute Plan to address problem: Supplemental oxygen, nebulizer therapy, pulse oximetry, NIPPV, chest x ray. Diabetes Current Visit: Yes Status: Acute Plan to address Adjusted Insulin dosage to 45 units BID Discontinue Glipizide--no need for Glipizide bcoz patient is getting Insulin on a regular basis. GERD (gastroesophageal reflux disease) Current Visit: Yes Status: Acute Qualifiers: Esophagitis presence: without esophagitis Qualified Code(s): K21.9 - Gastro-esophageal reflux disease without esophagitis Plan to address problem: PPI therapy, Cardiomyopathy Current Visit: No Status: Chronic HTN (hypertension) Current Visit: No Status: Chronic Qualifiers: Hypertension type: essential hypertension Qualified Code(s): I10 - Essential (primary) hypertension Morbid obesity Weight loss modalities discussed in detail patient verbalized understanding obesity hypoventilation syndrome Current Visit: Yes Status: Acute Plan to address problem: Supplemental oxygen, nebulizer therapy, NIPPV nightly, pulse oximetry, chest x ray DVT prophylaxis Current Visit: No Status: Acute Plan to address problem: SCD to BLE while in bed, supportive care. prophylactic heparin Continue current treatment will obtain physical therapy evaluation and treat and also nephrology consult to assist with management of diuresis. Fall precautions, Aspiration precautions. History Interval history: Patient seen and examined this morning, Notes some improvement today, still with cough but no further chest pain. Patient reports that she is minimally ambulatory at home. Hospitalist Physical - Physical exam Narrative exam: VITAL SIGNS: Reviewed. GENERAL: The patient appears normally developed, morbidly obese vital signs as documented. HEAD: No signs of head trauma. EYES: Pupils are equal. Extraocular motions intact. EARS: Hearing grossly intact. MOUTH: Oropharynx is normal. NECK: No adenopathy, no JVD. CHEST: Chest with crackles breath sounds bilaterally. No wheezes, rales, or rhonchi. CARDIAC: Regular rate and rhythm. S1 and S2, without murmurs, gallops, or r ubs. VASCULAR: +1 pitting edema bilaterally upper and lower extremity. Peripheral pulses normal and equal in all extremities. ABDOMEN: Soft, non tender and non distended. No rebound or guarding, and no masses palpated. Bowel Sounds normal. MUSCULOSKELETAL: Good range of motion of all major joints. Extremities without clubbing, cyanosis. +1 pitting edema bilaterally upper and lower extremity NEUROLOGIC EXAM: Alert and oriented x 3 No focal sensory or strength deficits. Speech normal. Follows commands. PSYCHIATRIC: Mood normal. SKIN: detial exam as documented in skin assessment - Constitutional Vitals: Temp Pulse Resp BP Pulse Ox 98.3 F 90 20 111/64 98 06/10/19 07:22 06/10/19 10:35 06/10/19 08:56 06/10/19 10:35 06/10/19 08:56 General appearance: Present: mild distress Results - Labs CBC & Chem 7: 06/10/19 06:21 06/10/19 06:21 Labs: Laboratory Last Values WBC 6.4 K/mm3 (4.5-11.0) 06/10/19 06:21 RBC 3.03 M/mm3 (3.65-5.03) L 06/10/19 06:21 Hgb 10.0 gm/dl (10.1-14.3) L 06/10/19 06:21 Hct 30.7 % (30.3-42.9) 06/10/19 06:21 MCV 101 fl (79-97) H 06/10/19 06:21 MCH 33 pg (28-32) H 06/10/19 06:21 MCHC 33 % (30-34) 06/10/19 06:21 RDW 16.5 % (13.2-15.2) H 06/10/19 06:21 Plt Count 190 K/mm3 (140-440) 06/10/19 06:21 Lymph % (Auto) 11.0 % (13.4-35.0) L 06/07/19 22:02 [place] % (Auto) 8.0 % (0.0-7.3) H 06/07/19 22:02 Eos % (Auto) 0.2 % (0.0-4.3) 06/07/19 22:02 Baso % (Auto) 0.6 % (0.0-1.8) 06/07/19 22:02 Lymph # 0.8 K/mm3 (1.2-5.4) L 06/07/19 22:02 [place] # 0.6 K/mm3 (0.0-0.8) 06/07/19 22:02 Eos # 0.0 K/mm3 (0.0-0.4) 06/07/19 22:02 Baso # 0.0 K/mm3 (0.0-0.1) 06/07/19 22:02 Seg Neutrophils % 80.2 % (40.0-70.0) H 06/07/19 22:02 Seg Neutrophils # 5.8 K/mm3 (1.8-7.7) 06/07/19 22:02 POC ABG pH 7.454 (7.35-7.45) H 06/07/19 22:50 POC ABG pCO2 24.2 (35-45) L 06/07/19 22:50 POC ABG pO2 105 (80-105) 06/07/19 22:50 POC ABG HCO3 17.0 (22-26 mml/L) 06/07/19 22:50 POC ABG Total CO2 18 (23-27mmol/L) 06/07/19 22:50 POC ABG O2 Sat 98 06/07/19 22:50 POC ABG Base Excess -7 ((-2) - (+3)mmol/L) 06/07/19 22:50 FiO2 30 % 06/07/19 22:50 Sodium 145 mmol/L (137-145) D 06/10/19 06:21 Potassium 3.7 mmol/L (3.6-5.0) 06/10/19 06:21 Chloride 100.1 mmol/L (98-107) 06/10/19 06:21 Carbon Dioxide 23 mmol/L (22-30) D 06/10/19 06:21 Anion Gap 26 mmol/L 06/10/19 06:21 BUN 27 mg/dL (7-17) H 06/10/19 06:21 Creatinine 1.2 mg/dL (0.7-1.2) 06/10/19 06:21 Estimated GFR 55 ml/min 06/10/19 06:21 BUN/Creatinine Ratio 23 % 06/10/19 06:21 Glucose 60 mg/dL (65-100) L 06/10/19 06:21 POC Glucose 244 (70-105) H 06/10/19 12:55 Lactic Acid 1.90 mmol/L (0.7-2.0) 06/08/19 03:50 Calcium 9.0 mg/dL (8.4-10.2) 06/10/19 06:21 Troponin T 0.012 ng/mL (0.00-0.029) 06/07/19 22:02 NT-Pro-B Natriuret Pep 78412 pg/mL (0-900) H 06/07/19 23:02 Active Medications - Current Medications Current Medications: Generic Name Dose Route Start Last Admin Trade Name Freq PRN Reason Stop Dose Admin Acetaminophen 650 mg 06/07/19 23:26 06/08/19 14:00 Tylenol PO 650 mg Q4H PRN Administration Pain MILD(1-3)/Fever >100.5/BANKS Albuterol 2.5 mg 06/07/19 23:26 Proventil IH Q4HRT PRN Shortness Of Breath Allopurinol 300 mg 06/08/19 10:00 06/10/19 10:33 Zyloprim PO 300 mg QDAY ALON Administration Amitriptyline HCl 25 mg 06/08/19 00:30 06/09/19 21:30 Elavil PO 25 mg QHS ALON Administration Aspirin 81 mg 06/08/19 10:00 06/10/19 10:34 Baby Aspirin PO 81 mg QDAY ALON Administration Atorvastatin Calcium 20 mg 06/08/19 10:00 06/10/19 10:33 Lipitor PO 20 mg DAILY ALON Administration Carvedilol 3.125 mg 06/08/19 10:00 06/10/19 10:35 Coreg PO 3.125 mg BID ALON Administration Dextrose 50 ml 06/08/19 08:31 D50w (25gm) Syringe IV Q30MIN PRN Hypoglycemia Protocol Diclofenac Sodium 1 applic 06/08/19 10:00 06/10/19 10:34 Diclofenac 1% TP 1 applic BID ALON Administration Famotidine 20 mg 06/08/19 10:00 06/10/19 10:33 Pepcid PO 20 mg BID ALON Administration Fish Oil 1,000 mg 06/08/19 10:00 06/10/19 10:34 Fish Oil PO 1,000 mg DAILY ALON Administration Furosemide 40 mg 06/08/19 06:00 06/10/19 05:13 Lasix IV 40 mg BID@0600,1800 ALON Administration Gabapentin 300 mg 06/08/19 08:00 06/10/19 14:00 Gabapentin PO 300 mg TID ALON Administration Heparin Sodium (Porcine) 5,000 unit 06/08/19 10:00 06/10/19 10:34 Heparin SUB-Q 5,000 unit Q12HR ALON Administration Insulin Human Isoph/Insulin Regular 50 unit 06/09/19 13:00 06/10/19 10:40 Humulin 70/30 SUB-Q 50 unit BID ALON Administration Insulin Human Lispro 0 unit 06/08/19 09:00 06/10/19 16:41 Humalog SUB-Q 6 unit ACHS ALON Administration Protocol Levothyroxine Sodium 112 mcg 06/08/19 06:00 06/10/19 05:13 Synthroid PO 112 mcg QDAY@0600 ALON Administration Losartan Potassium 25 mg 06/11/19 10:00 Cozaar PO QDAY ALON Megestrol Acetate 40 mg 06/09/19 14:00 06/10/19 14:00 Megestrol PO 40 mg QID ALON Administration Ondansetron HCl 4 mg 06/07/19 23:26 Zofran IV Q8H PRN Nausea And Vomiting Oxybutynin Chloride 5 mg 06/08/19 22:00 06/09/19 21:30 Ditropan PO 5 mg HS ALON Administration Sodium Chloride 10 ml 06/08/19 10:00 06/10/19 10:58 Sodium Chloride Flush Syringe 10 Ml IV 10 ml BID ALON Administration Sodium Chloride 10 ml 06/07/19 23:26 06/09/19 05:33 Sodium Chloride Flush Syringe 10 Ml IV 10 ml PRN PRN Administration LINE FLUSH Spironolactone 25 mg 06/08/19 10:00 06/10/19 10:35 Aldactone PO 25 mg QDAY ALON Administration Sucralfate 1 gm 06/08/19 10:00 06/10/19 10:33 Carafate PO 1 gm BID ALON Administration Venlafaxine HCl 75 mg 06/08/19 10:00 06/10/19 10:34 Effexor PO 75 mg QDAY ALON Administration Nutrition/Malnutrition Assess - Dietary Evaluation Nutrition/Malnutrition Findings: Nutrition Notes Start: 06/08/19 12:30 Freq: Status: Active Protocol: Document 06/08/19 12:30 LM (Rec: 06/08/19 12:47 LM [id number]) Nutrition Notes Need for Assessment generated from: MD Order,Education Initial or Follow up Assessment Current Diagnosis Diabetes,Hypertension,Heart Failure,Respiratory Failure Other Pertinent Diagnosis GERD, OA Current Diet Cardiac diet Labs/Tests POC glu 329 Pertinent Medications Lasix Height 5 ft 3 in Weight 122.1 kg Usual Body Weight 118 kg [place] Body Weight (kg) 52.27 BMI 47.7 Weight change and time frame Pt states 4 lb wt loss 4 months ago. Pt currently weighs more than UBW. Pt with leg edema. Weight Status Morbidly Obese Subjective/Other Information MD consult for DM diet education. Pt stated not eating well. Pt only drank milk and coffee at breakfast. Pt has received DM eduaction in the past but wanted education. Also discussed healthy eating for hypertension with pt. Burn Absent Trauma Absent GI Symptoms None Current % PO Negligible Minimum of two criteria No Fluid Accumulation Mild (non-severe) #2 Nutrition Diagnosis Food and nutrition-related knowledge deficit Etiology pt not receiving DM and hypertension diet education in years, pt noncompliant with DM and hypertension diet As Evidenced by Signs and Symptoms Pt needing diet education, pt eating processed meats, POC glu 329 #1 Nutrition Diagnosis Inadequate oral intake Etiology Chronic illness As Evidenced by Signs and Symptoms eating less than 25% of breakfast Is patient on ventilator? No Is Patient Ambulatory and/or Out of Bed No REE-([facility]-confined to bed) 2098.728 Kcal/Kg value to use for calculation 13 Approximate Energy Requirements Using 1587 kcal/Kg Calculation Used for Recommendations Kcal/kg Additional Notes Protein: 87-104g (1-1.2) AdjBW 87 kg Fluid needs: 1 ml/kcal or per MD Nutrition Intervention Change Diet Order: Cardiac/consistent CHO Teaching Recipient Patient Learning Readiness Good Teaching Methods Discussion,Handout Response to Teaching Verbalize understanding Education Handouts Provided Carbohydrate Counting for People with Diabetes Barriers to Learning Motivation RD phone number provided Yes Patient aware of follow up options Yes Goal #1 Meet at least 75% of energy and protein needs Anticipated Discharge Needs: Cardiac/consistent CHO Follow-Up By: 06/11/19 Additional Comments F/U for intakes
[2019-06-10] MEDS: AMITRIPTYLINE 25 MG TAB PO SCH (22:37)
[2019-06-10] MEDS: OXYBUTYNIN 5 MG TAB PO SCH (22:37)
[2019-06-11] MEDS: LEVOTHYROXINE 112 MCG TAB PO SCH (05:13)
[2019-06-11] MEDS: FUROSEMIDE 40 MG/4 ML INJ IV SCH ×2 (05:13→17:25)
[2019-06-11 05:39] LABS: Hematocrit 28.9 % (30.3-42.9); Hemoglobin 9.4 gm/dl (10.1-14.3); Mean Corpuscular HGB Conc 33 % (30-34); Mean Corpuscular Volume 101 fl (79-97); Platelet Count 197 K/mm3 (140-440); Red Blood Count 2.87 M/mm3 (3.65-5.03); Red Cell Distribution Width 16.3 % (13.2-15.2)
[2019-06-11 05:59] LABS: Calcium 8.8 mg/dL (8.4-10.2)
[2019-06-11] MEDS ORDERED: POTASSIUM CHLORIDE ER 20 MEQ TAB PO ONE (06:17)
--- NOTE | 2019-06-11 06:20 | Event Note ---
Date: 06/11/19 potassium this am 2.9 trending down from 3.7 on 06/10. ordered potassium replacement, follow up on repeat potassium lab
[2019-06-11] MEDS: INSULIN LISPRO 100 UNIT/ML SUB-Q SCH ×4 (08:30→22:45)
[2019-06-11] MEDS: SPIRONOLACTONE 25 MG TAB PO SCH (09:28)
[2019-06-11] MEDS: MEGESTROL 40 MG TAB PO SCH ×4 (09:29→22:46)
[2019-06-11] MEDS: ASPIRIN 81 MG TAB CHEW PO SCH (09:29)
[2019-06-11] MEDS: GABAPENTIN 300 MG CAP PO SCH ×3 (09:29→22:47)
[2019-06-11] MEDS: OMEGA-3 FATTY ACIDS/FISH OIL 1 GRAM CAP PO SCH (09:29)
[2019-06-11] MEDS: allopurinoL 300 MG TAB PO SCH (09:29)
[2019-06-11] MEDS: HEPARIN 5,000 UNIT/1 ML VIAL SUB-Q SCH ×2 (09:29→22:46)
[2019-06-11] MEDS: FAMOTIDINE 20 MG TAB PO SCH ×2 (09:29→22:47)
[2019-06-11] MEDS: VENLAFAXINE 75 MG TAB PO SCH (09:29)
[2019-06-11] MEDS: carvediloL 3.125 MG TAB PO SCH ×2 (09:29→22:47)
[2019-06-11] MEDS: SUCRALFATE 1 GM TAB PO SCH ×2 (09:29→22:47)
[2019-06-11] MEDS: LOSARTAN 25 MG TAB PO SCH (09:29)
[2019-06-11] MEDS: INSULIN NPH/REGULAR 70/30 INJ SUB-Q SCH ×2 (09:30→22:44)
[2019-06-11] MEDS: DICLOFENAC SODIUM 1% TOPICAL GEL 100 GM TP SCH ×2 (09:30→22:44)
--- NOTE | 2019-06-11 11:03 | Progress Note ---
Assessment and Plan Pt appears to be nearing euvolemia. Convert IV lasix to PO lasix 40mg daily from tomorrow. Replete lytes PRN and f/u BMP and Mg in AM. Cont GDMT for HFrEF. F/u echo reviewed - EF 10-15%, mild LVH, impaired relaxation, mild MR. LifeVest is in place. Will plan for EP consultation for AICD candidacy as OP. The patient has been seen in conjunction with Dr. Peterson Aguirre who agrees with the assessment and plan of care. - Patient Problems (1) Acute HFrEF (heart failure with reduced ejection fraction) Current Visit: Yes Status: Acute (2) Cardiomyopathy Current Visit: Yes Status: Chronic Plan to address problem: presumably nonischemic given negative stress test 01/16/2019 (3) Sinus tachycardia Current Visit: Yes Status: Acute (4) Diabetes mellitus with hyperglycemia Current Visit: Yes Status: Acute (5) Anemia Current Visit: Yes Status: Chronic Qualifiers: Anemia type: unspecified type Qualified Code(s): D64.9 - Anemia, unspecified (6) HTN (hypertension) Current Visit: Yes Status: Chronic Qualifiers: Hypertension type: essential hypertension Qualified Code(s): I10 - Essential (primary) hypertension (7) Sleep apnea Current Visit: Yes Status: Chronic (8) GERD (gastroesophageal reflux disease) Current Visit: Yes Status: Chronic Qualifiers: Esophagitis presence: with esophagitis Qualified Code(s): K21.0 - Gastro- esophageal reflux disease with esophagitis (9) Obesity Current Visit: Yes Status: Chronic (10) CKD Current Visit: Yes Status: Chronic (11) NSVT Current Visit: Yes Status: Chronic Subjective Date of service: 06/11/19 Principal diagnosis: CHF exacerbation Interval history: pt resting in bed, still feels weak overall but BLE edema nearly resolved. Life Vest in Place. in SR with no acute events noted overnight. Objective Last Vital Signs Temp 97.5 F L 06/11/19 04:52 Pulse 91 H 06/11/19 09:29 Resp 20 06/11/19 04:52 BP 128/64 06/11/19 09:29 Pulse Ox 97 06/11/19 08:42 - Physical Examination General: No Apparent Distress HEENT: Positive: PERRL Neck: Positive: neck supple Cardiac: Positive: Reg Rate and Rhythm, S1/S2 Lungs: Positive: Decreased Breath Sounds Neuro: Positive: Grossly Intact Abdomen: Positive: Unremarkable Skin: Positive: Clear Musculoskeletal: Decreased Range of Motion Extremities: Present: +1 Edema (BLE) - Labs and Meds CBC 06/11/19 Range/Units 04:07 WBC 5.9 (4.5-11.0) K/mm3 RBC 2.87 L (3.65-5.03) M/mm3 Hgb 9.4 L (10.1-14.3) gm/dl Hct 28.9 L (30.3-42.9) % Plt Count 197 (140-440) K/mm3 Comprehensive Metabolic Panel 06/11/19 Range/Units 04:07 Sodium 141 (137-145) mmol/L Potassium 2.9 L* D (3.6-5.0) mmol/L Chloride 100.1 (98-107) mmol/L Carbon Dioxide 27 (22-30) mmol/L BUN 31 H (7-17) mg/dL Creatinine 1.2 (0.7-1.2) mg/dL Glucose 177 H (65-100) mg/dL Calcium 8.8 (8.4-10.2) mg/dL - Imaging and Cardiology Echo: report reviewed (01/2019: EF 15 to 20%, moderate MR, mild TR, RVSP 37) - EKG Sinus rhythms and dysrhythmias: sinus rhythm Repolarization changes or abnormalities: nonspecific abnormality, ST segment, and/or T wave (diffuse)
[2019-06-11] MEDS: POTASSIUM CHLORIDE 10 MEQ 10 MEQ/100 ML BAG IV SCH ×4 (11:21→16:47)
[2019-06-11] MEDS ORDERED: MAGNESIUM SULFATE 2 GM/50 ML BAG IV ONE (13:34)
--- NOTE | 2019-06-11 15:11 | Progress Note ---
Assessment and Plan Impression: * SHANTHI (outpatient) on stage II chronic kidney disease --Baseline SCr 1.2mg/dL --SCr 1.38mg/dL on Jun 04, 2019 and SCr 1.79 on May 28, 2019. * Acute on chronic systolic heart failure --TTE (May 2019): LVEF 10-15%, severe global hypokinesis of LV, impaired relaxation of LV --TTE (January 2019): LVEF 15-20%, moderate MR, mild TR, and an RVSP of 37. --MPI (January 2019): Negative for ischemia. * Dilated cardiomyopathy * Type II DM * Hx of hyperkalemia (outpatient) - resolved Plan: * Renal function is stable and currently at baseline * Diuresis per cardiology - IV lasix BID, note change for tomorrow to Lasix 40mg daily * Continue Losartan and Aldactone * Replete lytes prn * Strict I/O * Dose medications for renal function * Avoid potential nephrotoxins Subjective Date of service: 06/11/19 Principal diagnosis: CHF exacerbation Interval history: Patient reports SOB unimproved. States swelling is better. Objective - Vital Signs Vital signs: Vital Signs - 12hr 06/11/19 06/11/19 06/11/19 04:52 07:53 08:42 Temperature 97.5 F L Pulse Rate 93 H 91 H Respiratory 20 Rate Blood Pressure 115/71 128/64 O2 Sat by Pulse 98 98 97 Oximetry 06/11/19 06/11/19 09:28 09:29 Temperature Pulse Rate 91 H 91 H Respiratory Rate Blood Pressure 128/64 128/64 O2 Sat by Pulse Oximetry - General Appearance General appearance: well-developed, well-nourished EENT: ATNC Respiratory: Present: Decreased Breath Sounds Cardiology: regular, S1S2 Gastrointestinal: normal, no tenderness, no distended, obese Integumentary: no rash, warm and dry Neurologic: no focal deficit, alert and oriented x3 Musculoskeletal: other (Trace edema) Psychiatric: cooperative - Lab 06/11/19 04:07 06/11/19 13:15 Most recent lab results Calcium 8.8 mg/dL (8.4-10.2) 06/11/19 04:07 Magnesium 1.60 mg/dL (1.7-2.3) L 06/11/19 04:07 Medications & Allergies - Medications Allergies/Adverse Reactions: Allergies Iodinated Contrast Media Allergy (Severe, Verified 10/03/13 11:59) FACE SWELLING STATES IODINE IS OK TO USE OTHERWISE PAPER TAPE Allergy (Uncoded 01/27/15 10:40) Itching, BLISTERS SKIN Home Medications: Home Medications Medication Instructions Recorded Confirmed Last Taken Type Famotidine 20 mg PO BID 10/01/13 01/14/19 10/02/13 History 20 MG Fluticasone Propionate [Flonase] 2 spray INNOSTRIL DAILY 10/01/13 01/14/1910/01 History 2 SPRAYS Metformin HCl 1,000 mg PO BIDPC 10/01/13 01/14/19 10/02/13 18:00 History 500 MG cycloSPORINE [Restasis 0.05%] 1 drop OU BID 10/01/13 01/14/19 10/02/13 History 2 DROPS Albuterol Sulfate [Proventil Hfa] 2 puff IH Q6H PRN 01/14/19 01/14/19 Unknown History Allopurinol [Zyloprim] 300 mg PO QDAY 01/14/19 01/14/19 Unknown History Amitriptyline [Elavil] 25 mg PO DAILY 01/14/19 01/14/19 Unknown History AtorvaSTATin [Lipitor] 20 mg PO DAILY 01/14/19 01/14/19 Unknown History Diclofenac 1% [Diclofenac 1% 1 applic TP BID 01/14/19 01/14/19 Unknown History topical gel] Gabapentin 300 mg PO TID 01/14/19 01/14/19 Unknown History Insulin Lispro Protamin/Lispro 40 units SUB-Q QAM 01/14/19 01/14/19 Unknown History [Humalog Mix 75-25 Vial] Insulin Lispro Protamin/Lispro 50 units SUB-Q QPM 01/14/19 01/14/19 Unknown History [Humalog Mix 75-25 Vial] Levothyroxine [Synthroid] 112 mcg PO QDAY 01/14/19 01/14/19 Unknown History Megestrol 40 mg PO QID 01/14/19 01/14/19 Unknown History [place]-3S/Dha/Epa/Fish Oil [[place]-3 1 each PO DAILY 01/14/19 01/14/19 Unknown History Fish Oil 1,000 mg Sfgl] Oxybutynin [Ditropan] 5 mg PO HS 01/14/19 01/14/19 Unknown History Spironolactone [Aldactone] 25 mg PO QDAY 01/14/19 01/14/19 Unknown History Sucralfate [Carafate] 1 gm PO BID 01/14/19 01/14/19 Unknown History Venlafaxine [Effexor] 75 mg PO QDAY 01/14/19 01/14/19 Unknown History glipiZIDE [Glucotrol] 5 mg PO QDAY 01/14/19 01/14/19 Unknown History Aspirin [Aspirin BABY CHEW TAB] 81 mg PO QDAY #30 tab.chew 01/19/19 Unknown Rx Azithromycin [Zithromax TAB] 500 mg PO QDAY #3 tablet 01/19/19 Unknown Rx Furosemide [Lasix TAB] 20 mg PO QDAY #30 tablet 01/19/19 Unknown Rx carvediloL [Coreg] 3.125 mg PO BID #60 tablet 01/19/19 Unknown Rx Active Medications: Generic Name Dose Route Start Last Admin Trade Name Freq PRN Reason Stop Dose Admin Acetaminophen 650 mg 06/07/19 23:26 06/08/19 14:00 Tylenol PO 650 mg Q4H PRN Administration Pain MILD(1-3)/Fever >100.5/BANKS Albuterol 2.5 mg 06/07/19 23:26 Proventil IH Q4HRT PRN Shortness Of Breath Allopurinol 300 mg 06/08/19 10:00 06/11/19 09:29 Zyloprim PO 300 mg QDAY ALON Administration Amitriptyline HCl 25 mg 06/08/19 00:30 06/10/19 22:37 Elavil PO 25 mg QHS ALON Administration Aspirin 81 mg 06/08/19 10:00 06/11/19 09:29 Baby Aspirin PO 81 mg QDAY ALON Administration Atorvastatin Calcium 20 mg 06/08/19 10:00 06/11/19 09:28 Lipitor PO 20 mg DAILY ALON Administration Carvedilol 3.125 mg 06/08/19 10:00 06/11/19 09:29 Coreg PO 3.125 mg BID ALON Administration Dextrose 50 ml 06/08/19 08:31 D50w (25gm) Syringe IV Q30MIN PRN Hypoglycemia Protocol Diclofenac Sodium 1 applic 06/08/19 10:00 06/11/19 09:30 Diclofenac 1% TP 1 applic BID ALON Administration Famotidine 20 mg 06/08/19 10:00 06/11/19 09:29 Pepcid PO 20 mg BID ALON Administration Fish Oil 1,000 mg 06/08/19 10:00 06/11/19 09:29 Fish Oil PO 1,000 mg DAILY ALON Administration Furosemide 40 mg 06/08/19 06:00 06/11/19 05:13 Lasix IV 06/11/19 22:00 40 mg BID@0600,1800 ALON Administration Furosemide 40 mg 06/12/19 10:00 Lasix PO QDAY ALON Gabapentin 300 mg 06/08/19 08:00 06/11/19 09:29 Gabapentin PO 300 mg TID ALON Administration Heparin Sodium (Porcine) 5,000 unit 06/08/19 10:00 06/11/19 09:29 Heparin SUB-Q 5,000 unit Q12HR ALON Administration Magnesium Sulfate 2 gm in 50 mls @ 25 mls/hr 06/11/19 13:34 Magnesium Sulfate 2gm/50ml IV 06/11/19 15:33 ONCE ONE Insulin Human Isoph/Insulin Regular 50 unit 06/09/19 13:00 06/11/19 09:30 Humulin 70/30 SUB-Q Not Given BID [facility] Insulin Human Lispro 0 unit 06/08/19 09:00 06/11/19 13:45 Humalog SUB-Q 4 unit ACHS ALON Administration Protocol Levothyroxine Sodium 112 mcg 06/08/19 06:00 06/11/19 05:13 Synthroid PO 112 mcg QDAY@0600 ALON Administration Losartan Potassium 25 mg 06/11/19 10:00 06/11/19 09:29 Cozaar PO 25 mg QDAY ALON Administration Megestrol Acetate 40 mg 06/09/19 14:00 06/11/19 13:45 Megestrol PO 40 mg QID ALON Administration Ondansetron HCl 4 mg 06/07/19 23:26 Zofran IV Q8H PRN Nausea And Vomiting Oxybutynin Chloride 5 mg 06/08/19 22:00 06/10/19 22:37 Ditropan PO 5 mg HS ALON Administration Potassium Chloride 40 meq 06/12/19 10:00 K-Dur PO QDAY ALON Sodium Chloride 10 ml 06/08/19 10:00 06/11/19 09:31 Sodium Chloride Flush Syringe 10 Ml IV 10 ml BID ALON Administration Sodium Chloride 10 ml 06/07/19 23:26 06/09/19 05:33 Sodium Chloride Flush Syringe 10 Ml IV 10 ml PRN PRN Administration LINE FLUSH Spironolactone 25 mg 06/08/19 10:00 06/11/19 09:28 Aldactone PO 25 mg QDAY ALON Administration Sucralfate 1 gm 06/08/19 10:00 06/11/19 09:29 Carafate PO 1 gm BID ALON Administration Venlafaxine HCl 75 mg 06/08/19 10:00 06/11/19 09:29 Effexor PO 75 mg QDAY ALON Administration
--- NOTE | 2019-06-11 15:40 | Progress Note ---
Assessment and Plan Assessment and plan: Acute combined systolic and diastolic (congestive) heart failure with EF of 10- 15% -Improving -Lasix changed to oral -cont BB, ACEI and spironolactone -Echo showed EF of 10-15% and diastolic dysfunction -Cardiology following Acute respiratory failure with hypoxia -Improving -Continue supplemental oxygen, nebulizer therapy and NIPPV DM2 with hyperglycemia -blood glucose improved -Continue current insulin regimen, will adjust as needed Hypokalemia -On repletion, will monitor level Hypomagnesemia -Repleted, will monitor level Diabetic neuropathy -Continue gabapentin Hypothyroidism -Continue Synthroid Gastro-esophageal reflux disease without esophagitis -cont PPI Essential hypertension -Controlled HLD -cont statin Morbid obesity with BMI of 46.5 -Patient counseled on weight loss Obesity hypoventilation syndrome/RAMSEY -Continue supplemental oxygen, nebulizer therapy and NIPPV nightly AOCD -H/H stable DVT prophylaxis: Heparin Disposition: For discharge when cleared by cardiology History Interval history: Patient stated that she feels a little better today. She denied chest pain. Hospitalist Physical - Constitutional Vitals: Temp Pulse Resp BP Pulse Ox 97.5 F L 91 H 20 128/64 97 06/11/19 04:52 06/11/19 09:29 06/11/19 04:52 06/11/19 09:29 06/11/19 08:42 General appearance: Present: no acute distress - EENT Eyes: Present: PERRL, EOM intact ENT: hearing intact, clear oral mucosa - Neck Neck: Present: supple - Respiratory Respiratory effort: normal Respiratory: bilateral: diminished, negative: rales, wheezing - Cardiovascular Rhythm: regular Heart Sounds: Present: S1 & S2 - Extremities Extremities: No edema - Abdominal General gastrointestinal: soft, non-tender, normal bowel sounds - Integumentary Integumentary: Present: warm, dry - Psychiatric Psychiatric: appropriate mood/affect - Neurologic Neurologic: CNII-XII intact Results - Labs CBC & Chem 7: 06/11/19 04:07 06/11/19 13:15 Labs: Laboratory Last Values WBC 5.9 K/mm3 (4.5-11.0) 06/11/19 04:07 RBC 2.87 M/mm3 (3.65-5.03) L 06/11/19 04:07 Hgb 9.4 gm/dl (10.1-14.3) L 06/11/19 04:07 Hct 28.9 % (30.3-42.9) L 06/11/19 04:07 MCV 101 fl (79-97) H 06/11/19 04:07 MCH 33 pg (28-32) H 06/11/19 04:07 MCHC 33 % (30-34) 06/11/19 04:07 RDW 16.3 % (13.2-15.2) H 06/11/19 04:07 Plt Count 197 K/mm3 (140-440) 06/11/19 04:07 Lymph % (Auto) 11.0 % (13.4-35.0) L 06/07/19 22:02 Wheeler % (Auto) 8.0 % (0.0-7.3) H 06/07/19 22:02 Eos % (Auto) 0.2 % (0.0-4.3) 06/07/19 22:02 Baso % (Auto) 0.6 % (0.0-1.8) 06/07/19 22:02 Lymph # 0.8 K/mm3 (1.2-5.4) L 06/07/19 22:02 Wheeler # 0.6 K/mm3 (0.0-0.8) 06/07/19 22:02 Eos # 0.0 K/mm3 (0.0-0.4) 06/07/19 22:02 Baso # 0.0 K/mm3 (0.0-0.1) 06/07/19 22:02 Seg Neutrophils % 80.2 % (40.0-70.0) H 06/07/19 22:02 Seg Neutrophils # 5.8 K/mm3 (1.8-7.7) 06/07/19 22:02 POC ABG pH 7.454 (7.35-7.45) H 06/07/19 22:50 POC ABG pCO2 24.2 (35-45) L 06/07/19 22:50 POC ABG pO2 105 (80-105) 06/07/19 22:50 POC ABG HCO3 17.0 (22-26 mml/L) 06/07/19 22:50 POC ABG Total CO2 18 (23-27mmol/L) 06/07/19 22:50 POC ABG O2 Sat 98 06/07/19 22:50 POC ABG Base Excess -7 ((-2) - (+3)mmol/L) 06/07/19 22:50 FiO2 30 % 06/07/19 22:50 Sodium 141 mmol/L (137-145) 06/11/19 04:07 Potassium 3.6 mmol/L (3.6-5.0) D 06/11/19 13:15 Chloride 100.1 mmol/L (98-107) 06/11/19 04:07 Carbon Dioxide 27 mmol/L (22-30) 06/11/19 04:07 Anion Gap 17 mmol/L 06/11/19 04:07 BUN 31 mg/dL (7-17) H 06/11/19 04:07 Creatinine 1.2 mg/dL (0.7-1.2) 06/11/19 04:07 Estimated GFR 55 ml/min 06/11/19 04:07 BUN/Creatinine Ratio 26 % 06/11/19 04:07 Glucose 177 mg/dL (65-100) H 06/11/19 04:07 POC Glucose 231 (70-105) H 06/11/19 11:38 Lactic Acid 1.90 mmol/L (0.7-2.0) 06/08/19 03:50 Calcium 8.8 mg/dL (8.4-10.2) 06/11/19 04:07 Magnesium 1.60 mg/dL (1.7-2.3) L 06/11/19 04:07 Troponin T 0.012 ng/mL (0.00-0.029) 06/07/19 22:02 NT-Pro-B Natriuret Pep 2762 pg/mL (0-900) H 06/11/19 13:15 Active Medications - Current Medications Current Medications: Generic Name Dose Route Start Last Admin Trade Name Freq PRN Reason Stop Dose Admin Acetaminophen 650 mg 06/07/19 23:26 06/08/19 14:00 Tylenol PO 650 mg Q4H PRN Administration Pain MILD(1-3)/Fever >100.5/BANKS Albuterol 2.5 mg 06/07/19 23:26 Proventil IH Q4HRT PRN Shortness Of Breath Allopurinol 300 mg 06/08/19 10:00 06/11/19 09:29 Zyloprim PO 300 mg QDAY ALON Administration Amitriptyline HCl 25 mg 06/08/19 00:30 06/10/19 22:37 Elavil PO 25 mg QHS ALON Administration Aspirin 81 mg 06/08/19 10:00 06/11/19 09:29 Baby Aspirin PO 81 mg QDAY ALON Administration Atorvastatin Calcium 20 mg 06/08/19 10:00 06/11/19 09:28 Lipitor PO 20 mg DAILY ALON Administration Carvedilol 3.125 mg 06/08/19 10:00 06/11/19 09:29 Coreg PO 3.125 mg BID ALON Administration Dextrose 50 ml 06/08/19 08:31 D50w (25gm) Syringe IV Q30MIN PRN Hypoglycemia Protocol Diclofenac Sodium 1 applic 06/08/19 10:00 06/11/19 09:30 Diclofenac 1% TP 1 applic BID ALON Administration Famotidine 20 mg 06/08/19 10:00 06/11/19 09:29 Pepcid PO 20 mg BID ALON Administration Fish Oil 1,000 mg 06/08/19 10:00 06/11/19 09:29 Fish Oil PO 1,000 mg DAILY ALON Administration Furosemide 40 mg 06/08/19 06:00 06/11/19 05:13 Lasix IV 06/11/19 22:00 40 mg BID@0600,1800 ALON Administration Furosemide 40 mg 06/12/19 10:00 Lasix PO QDAY ALON Gabapentin 300 mg 06/08/19 08:00 06/11/19 09:29 Gabapentin PO 300 mg TID ALON Administration Heparin Sodium (Porcine) 5,000 unit 06/08/19 10:00 06/11/19 09:29 Heparin SUB-Q 5,000 unit Q12HR ALON Administration Insulin Human Isoph/Insulin Regular 50 unit 06/09/19 13:00 06/11/19 09:30 Humulin 70/30 SUB-Q Not Given BID ALON Insulin Human Lispro 0 unit 06/08/19 09:00 06/11/19 13:45 Humalog SUB-Q 4 unit ACHS ALON Administration Protocol Levothyroxine Sodium 112 mcg 06/08/19 06:00 06/11/19 05:13 Synthroid PO 112 mcg QDAY@0600 ALON Administration Losartan Potassium 25 mg 06/11/19 10:00 06/11/19 09:29 Cozaar PO 25 mg QDAY ALON Administration Megestrol Acetate 40 mg 06/09/19 14:00 06/11/19 13:45 Megestrol PO 40 mg QID ALON Administration Ondansetron HCl 4 mg 06/07/19 23:26 Zofran IV Q8H PRN Nausea And Vomiting Oxybutynin Chloride 5 mg 06/08/19 22:00 06/10/19 22:37 Ditropan PO 5 mg HS ALON Administration Potassium Chloride 40 meq 06/12/19 10:00 K-Dur PO QDAY ALON Sodium Chloride 10 ml 06/08/19 10:00 06/11/19 09:31 Sodium Chloride Flush Syringe 10 Ml IV 10 ml BID ALON Administration Sodium Chloride 10 ml 06/07/19 23:26 06/09/19 05:33 Sodium Chloride Flush Syringe 10 Ml IV 10 ml PRN PRN Administration LINE FLUSH Spironolactone 25 mg 06/08/19 10:00 06/11/19 09:28 Aldactone PO 25 mg QDAY ALON Administration Sucralfate 1 gm 06/08/19 10:00 06/11/19 09:29 Carafate PO 1 gm BID ALON Administration Venlafaxine HCl 75 mg 06/08/19 10:00 06/11/19 09:29 Effexor PO 75 mg QDAY ALON Administration Nutrition/Malnutrition Assess - Dietary Evaluation Nutrition/Malnutrition Findings: Nutrition Notes Start: 06/08/19 12: 30 Freq: Status: Active Protocol: Document 06/11/19 12:03 CT (Rec: 06/11/19 12:10 CT [id number]) Co-Sign 06/11/19 12:03 LP Nutrition Notes Initial or Follow up Reassessment Current Diagnosis Diabetes,Hypertension,Heart Failure,Respiratory Failure Other Pertinent Diagnosis GERD, OA Current Diet Consistent CHO cardiac Labs/Tests K 2.9 BUN 31 Glu 177 Pertinent Medications Lasix Humalog Humulin MegAce Lipitor KDur Height 5 ft 3 in Weight 119.1 kg [place] Body Weight (kg) 52.27 BMI 46.5 Weight change and time frame wt loss likely d/t fluid loss from lasix use Weight Status Morbidly Obese Subjective/Other Information Reassessment for intakes and questions for previous heart healthy carb counting diet education. Pt stated that she does not ahve any questions and understood. Pt stated she does have some issues chewing d/t not having any side teeth but did not want a mechanical soft diet. Pt stated she ate about 50% of her breakfast, that she has a good appetite but does not like the food served. Preferences were noted as fried foods. Pt was asked if she wanted a ONS, but stated that she would try to eat the food served. Burn Absent Trauma Absent GI Symptoms None Current % PO Fair (50-74%) Minimum of two criteria No Fluid Accumulation Mild (non-severe) #2 Nutrition Diagnosis Food and nutrition-related knowledge deficit As Evidenced by Signs and Symptoms pt stating no questions and understanding the diet Diagnosis Progress(for reassessment Resolved documentation) #1 Nutrition Diagnosis Inadequate oral intake Diagnosis Progress(for reassessment Continues documentation) Is patient on ventilator? No Is Patient Ambulatory and/or Out of Bed No REE-([facility]-confined to bed) 2.764 Kcal/Kg value to use for calculation 13 Approximate Energy Requirements Using 1548 kcal/Kg Calculation Used for Recommendations Kcal/kg Additional Notes Protein: 87-104g (1-1.2) AdjBW 87 kg Fluid needs: 1 ml/kcal or per MD Nutrition Intervention Change Diet Order: Cardiac/consistent CHO Goal #1 Meet at least 75% of energy and protein needs Anticipated Discharge Needs: Cardiac/consistent CHO Follow-Up By: 06/13/19 Additional Comments F/U for intakes and ONS need
[2019-06-11] MEDS: AMITRIPTYLINE 25 MG TAB PO SCH (22:47)
[2019-06-11] MEDS: OXYBUTYNIN 5 MG TAB PO SCH (22:50)
[2019-06-12] MEDS: LEVOTHYROXINE 112 MCG TAB PO SCH (05:41)
[2019-06-12 05:43] LABS: Calcium 9.2 mg/dL (8.4-10.2)
[2019-06-12] MEDS: INSULIN LISPRO 100 UNIT/ML SUB-Q SCH ×4 (08:17→17:08)
[2019-06-12] MEDS: ACETAMINOPHEN 325 MG TAB PO PRN (08:19)
[2019-06-12] MEDS: GABAPENTIN 300 MG CAP PO SCH ×2 (08:20→13:34)
[2019-06-12 08:34] VITALS: BP 121/73
[2019-06-12] MEDS ORDERED: INSULIN LISPRO 100 UNIT/ML SUB-Q SCH (09:00)
[2019-06-12] MEDS ORDERED: FUROSEMIDE 40 MG TAB PO SCH (10:00)
[2019-06-12] MEDS ORDERED: POTASSIUM CHLORIDE ER 10 MEQ TAB PO SCH ×2 (10:00)
[2019-06-12] MEDS ORDERED: POTASSIUM CHLORIDE ER 20 MEQ TAB PO SCH (10:00)
[2019-06-12] MEDS: carvediloL 3.125 MG TAB PO SCH (10:48)
[2019-06-12] MEDS: allopurinoL 300 MG TAB PO SCH (10:49)
[2019-06-12] MEDS: FAMOTIDINE 20 MG TAB PO SCH (10:49)
[2019-06-12] MEDS: SUCRALFATE 1 GM TAB PO SCH (10:50)
[2019-06-12] MEDS: SPIRONOLACTONE 25 MG TAB PO SCH (10:50)
[2019-06-12] MEDS: VENLAFAXINE 75 MG TAB PO SCH (10:50)
[2019-06-12] MEDS: LOSARTAN 25 MG TAB PO SCH (10:50)
[2019-06-12] MEDS: DICLOFENAC SODIUM 1% TOPICAL GEL 100 GM TP SCH (10:51)
[2019-06-12] MEDS: OMEGA-3 FATTY ACIDS/FISH OIL 1 GRAM CAP PO SCH (10:55)
[2019-06-12] MEDS: ASPIRIN 81 MG TAB CHEW PO SCH (10:55)
[2019-06-12] MEDS: MEGESTROL 40 MG TAB PO SCH ×3 (10:56→18:47)
[2019-06-12] MEDS: HEPARIN 5,000 UNIT/1 ML VIAL SUB-Q SCH (10:56)
[2019-06-12] MEDS: INSULIN NPH/REGULAR 70/30 INJ SUB-Q SCH (10:56)
--- NOTE | 2019-06-12 12:17 | Discharge Summary ---
Providers - Providers Date of Admission: 06/07/19 23:26 Date of discharge: 06/12/19 Attending physician: GAEL WADE 06/07/19 23:31 Consult to Physician [CONS] Routine Comment: Consulting Provider: SUSAN SCHAEFFER Physician Instructions: Reason For Exam: chf 06/08/19 08:35 Consult to Dietitian/Nutrition [CONS] Routine Physician Instructions: Reason For Exam: Reason for Consult: Diet education 06/09/19 14:00 Physical Therapy Evaluation and Treat [CONS] Routine Comment: Reason For Exam: ataxia 06/09/19 14:01 Consult to Physician [CONS] Routine Comment: Consulting Provider: KEY MARINO Physician Instructions: Reason For Exam: ckd Primary care physician: TOOL DIE MAKER Hospitalization Reason for admission: Acute combined systolic and diastolic (congestive) heart failure Condition: Stable Hospital course: Final discharge diagnosis: Acute combined systolic and diastolic (congestive) heart failure with EF of 10- 15% Acute respiratory failure with hypoxia, on home 02, 3L DM2 with hyperglycemia Hypokalemia Hypomagnesemia Diabetic neuropathy Hypothyroidism Gastro-esophageal reflux disease without esophagitis Essential hypertension HLD Morbid obesity with BMI of 46.5 Obesity hypoventilation syndrome/RAMSEY AOCD Hospital course: Patient was admitted and placed on CHF protocol in addition to oxygen supplementation and NIPPV at night. She also received both potassium and magnesium supplements for electrolyte abnormalities. She was placed on insulin regimen for the hyperglycemia. For her other comorbidities, she was continued on home medications. Subsequently, she improved clinically and was then deemed stable for discharge after clearance by the cardiology. Disposition: [id number] HOME UNDER HOME HL Time spent for discharge: 38 mins Core Measure Documentation - Palliative Care Palliative Care/ Comfort Measures: Not Applicable - Core Measures Any of the following diagnoses?: heart failure - Heart Failure Discharge Requirements ZACHARY/ARB for LVSD if EF <40%: Yes Beta saad at discharge: Yes Exam - Constitutional Vitals: Temp Pulse Resp BP Pulse Ox 97.5 F L 94 H 18 121/73 100 06/12/19 07:45 06/12/19 10:50 06/12/19 10:00 06/12/19 10:50 06/12/19 03:57 General appearance: Present: no acute distress, obese - EENT Eyes: Present: PERRL, EOM intact ENT: hearing intact, clear oral mucosa - Neck Neck: Present: supple, normal ROM - Respiratory Respiratory effort: normal Respiratory: bilateral: CTA - Cardiovascular Rhythm: regular Heart Sounds: Present: S1 & S2. Absent: rub, click - Extremities Extremities: No edema - Abdominal General gastrointestinal: Present: soft, non-tender, non-distended, normal bowel sounds - Integumentary Integumentary: Present: clear, warm, dry - Musculoskeletal Musculoskeletal: gait normal, strength equal bilaterally - Psychiatric Psychiatric: appropriate mood/affect, intact judgment & insight - Neurologic Neurologic: CNII-XII intact, moves all extremities Plan Follow up with: PRIMARY CAREMD [Primary Care Provider] - 3-5 Days VARGAS UMÑAA MD [Staff Physician] - 7 Days (Follow up in our [place] office with Dr. Peterson Umaña on 06/18/2019 @ 10:00AM. ) Prescriptions: Losartan [Cozaar] 25 mg PO QDAY #30 tablet Furosemide [Lasix TAB] 40 mg PO QDAY #30 tablet
--- NOTE | 2019-06-12 12:29 | Progress Note ---
Assessment and Plan Impression: * SHANTHI (outpatient) on stage II chronic kidney disease --Baseline SCr 1.2mg/dL --SCr 1.38mg/dL on Jun 04, 2019 and SCr 1.79 on May 28, 2019. * Acute on chronic systolic heart failure --TTE (May 2019): LVEF 10-15%, severe global hypokinesis of LV, impaired relaxation of LV --TTE (January 2019): LVEF 15-20%, moderate MR, mild TR, and an RVSP of 37. --MPI (January 2019): Negative for ischemia. * Dilated cardiomyopathy * Type II DM * Hx of hyperkalemia (outpatient) - resolved Plan: * Renal function is stable and currently at baseline * Diuresis per cardiology note change to Lasix 40mg daily * Continue Losartan and Aldactone - reduced doses * Do not d/c to home with po KCl; patient w/ hx of hyperkalemia as an outpatient prompting d/c of Losartan and Aldactone * Replete lytes prn * Strict I/O * Dose medications for renal function * Avoid potential nephrotoxins Subjective Date of service: 06/12/19 Principal diagnosis: CHF exacerbation Interval history: Patient reports dyspnea unchanged. Objective - Vital Signs Vital signs: Vital Signs - 12hr 06/12/19 06/12/19 06/12/19 03:57 07:45 10:00 Temperature 98.8 F 97.5 F L Pulse Rate 94 H Pulse Rate [ 94 H Apical] Pulse Rate [ 94 H From Monitor] Respiratory 18 18 18 Rate Blood Pressure 124/73 121/73 O2 Sat by Pulse 100 Oximetry 06/12/19 06/12/19 10:48 10:50 Temperature Pulse Rate 94 H 94 H Pulse Rate [ Apical] Pulse Rate [ From Monitor] Respiratory Rate Blood Pressure 121/73 121/73 O2 Sat by Pulse Oximetry - General Appearance General appearance: well-developed, well-nourished EENT: ATNC Respiratory: Present: Decreased Breath Sounds Cardiology: regular, S1S2 Gastrointestinal: no tenderness, no distended, obese Musculoskeletal: other (no edema) Psychiatric: cooperative - Lab 06/11/19 04:07 06/12/19 03:41 Most recent lab results Calcium 9.2 mg/dL (8.4-10.2) 06/12/19 03:41 Magnesium 2.50 mg/dL (1.7-2.3) H 12/04/19 03:41 Medications & Allergies - Medications Allergies/Adverse Reactions: Allergies Iodinated Contrast Media Allergy (Severe, Verified 10/03/13 11:59) FACE SWELLING STATES IODINE IS OK TO USE OTHERWISE PAPER TAPE Allergy (Uncoded 01/27/15 10:40) Itching, BLISTERS SKIN Home Medications: Home Medications Medication Instructions Recorded Confirmed Last Taken Type Famotidine 20 mg PO BID 10/01/13 01/14/19 10/02/13 History 20 MG Fluticasone Propionate [Flonase] 2 spray INNOSTRIL DAILY 10/01/13 01/14/19 10/01/13 History 2 SPRAYS Metformin HCl 1,000 mg PO BIDPC 10/01/13 01/14/19 10/02/13 18:00 History 500 MG cycloSPORINE [Restasis 0.05%] 1 drop OU BID 10/01/13 01/14/19 10/02/13 History 2 DROPS Albuterol Sulfate [Proventil Hfa] 2 puff IH Q6H PRN 01/14/19 01/14/19 Unknown History Allopurinol [Zyloprim] 300 mg PO QDAY 01/14/19 01/14/19 Unknown History Amitriptyline [Elavil] 25 mg PO DAILY 01/14/19 01/14/19 Unknown History AtorvaSTATin [Lipitor] 20 mg PO DAILY 01/14/19 01/14/19 Unknown History Diclofenac 1% [Diclofenac 1% 1 applic TP BID 01/14/19 01/14/19 Unknown History topical gel] Gabapentin 300 mg PO TID 01/14/19 01/14/19 Unknown History Insulin Lispro Protamin/Lispro 40 units SUB-Q QAM 01/14/19 01/14/19 Unknown History [Humalog Mix 75-25 Vial] Insulin Lispro Protamin/Lispro 50 units SUB-Q QPM 01/14/19 01/14/19 Unknown History [Humalog Mix 75-25 Vial] Levothyroxine [Synthroid] 112 mcg PO QDAY 01/14/19 01/14/19 Unknown History Megestrol 40 mg PO QID 01/14/19 01/14/19 Unknown History Corona-3S/Dha/Epa/Fish Oil [[place]ona-3 1 each PO DAILY 01/14/19 01/14/19 Unknown History Fish Oil 1,000 mg Sfgl] Oxybutynin [Ditropan] 5 mg PO HS 01/14/19 01/14/19 Unknown History Spironolactone [Aldactone] 25 mg PO QDAY 01/14/19 01/14/19 Unknown History Sucralfate [Carafate] 1 gm PO BID 01/14/19 01/14/19 Unknown History Venlafaxine [Effexor] 75 mg PO QDAY 01/14/19 01/14/19 Unknown History glipiZIDE [Glucotrol] 5 mg PO QDAY 01/14/19 01/14/19 Unknown History Aspirin [Aspirin BABY CHEW TAB] 81 mg PO QDAY #30 tab.chew 01/19/19 Unknown Rx carvediloL [Coreg] 3.125 mg PO BID #60 tablet 01/19/19 Unknown Rx Furosemide [Lasix TAB] 40 mg PO QDAY #30 tablet 06/12/19 Unknown Rx Losartan [Cozaar] 25 mg PO QDAY #30 tablet 06/12/19 Unknown Rx Active Medications: Generic Name Dose Route Start Last Admin Trade Name Freq PRN Reason Stop Dose Admin Acetaminophen 650 mg 06/07/19 23:26 06/12/19 08:19 Tylenol PO 650 mg Q4H PRN Administration Pain MILD(1-3)/Fever >100.5/BANKS Albuterol 2.5 mg 06/07/19 23:26 Proventil IH Q4HRT PRN Shortness Of Breath Allopurinol 300 mg 06/08/19 10:00 06/12/19 10:49 Zyloprim PO 300 mg QDAY ALON Administration Amitriptyline HCl 25 mg 06/08/19 00:30 06/11/19 22:47 Elavil PO 25 mg QHS ALON Administration Aspirin 81 mg 06/08/19 10:00 06/12/19 10:55 Baby Aspirin PO 81 mg QDAY ALON Administration Atorvastatin Calcium 20 mg 06/08/19 10:00 06/12/19 11:10 Lipitor PO 20 mg DAILY ALON Administration Carvedilol 3.125 mg 06/08/19 10:00 06/12/19 10:48 Coreg PO 3.125 mg BID ALON Administration Dextrose 50 ml 06/08/19 08:31 D50w (25gm) Syringe IV Q30MIN PRN Hypoglycemia Protocol Diclofenac Sodium 1 applic 06/08/19 10:00 06/12/19 10:51 Diclofenac 1% TP 1 applic BID ALON Administration Famotidine 20 mg 06/08/19 10:00 06/12/19 10:49 Pepcid PO 20 mg BID ALON Administration Fish Oil 1,000 mg 06/08/19 10:00 06/12/19 10:55 Fish Oil PO 1,000 mg DAILY ALON Administration Furosemide 40 mg 06/12/19 10:00 06/12/19 10:49 Lasix PO 40 mg QDAY ALON Administration Gabapentin 300 mg 06/08/19 08:00 06/12/19 08:20 Gabapentin PO 300 mg TID ALON Administration Heparin Sodium (Porcine) 5,000 unit 06/08/19 10:00 06/12/19 10:56 Heparin SUB-Q 5,000 unit Q12HR ALON Administration Insulin Human Isoph/Insulin Regular 50 unit 06/09/19 13:00 06/12/19 10:56 Humulin 70/30 SUB-Q 50 unit BID ALON Administration Insulin Human Lispro 0 unit 06/08/19 09:00 06/12/19 09:27 Humalog SUB-Q 3 unit ACHS ALON Administration Protocol Levothyroxine Sodium 112 mcg 06/08/19 06:00 06/12/19 05:41 Synthroid PO 112 mcg QDAY@0600 ALON Administration Losartan Potassium 25 mg 06/11/19 10:00 06/12/19 10:50 Cozaar PO 25 mg QDAY ALON Administration Megestrol Acetate 40 mg 06/09/19 14:00 06/12/19 10:56 Megestrol PO 40 mg QID ALON Administration Ondansetron HCl 4 mg 06/07/19 23:26 Zofran IV Q8H PRN Nausea And Vomiting Oxybutynin Chloride 5 mg 06/08/19 22:00 06/11/19 22:50 Ditropan PO 5 mg HS ALON Administration Potassium Chloride 40 meq 06/12/19 10:00 06/12/19 10:51 K-Dur PO 40 meq QDAY ALON Administration Sodium Chloride 10 ml 06/08/19 10:00 06/12/19 11:10 Sodium Chloride Flush Syringe 10 Ml IV 10 ml BID ALON Administration Sodium Chloride 10 ml 06/07/19 23:26 06/09/19 05:33 Sodium Chloride Flush Syringe 10 Ml IV 10 ml PRN PRN Administration LINE FLUSH Spironolactone 25 mg 06/08/19 10:00 06/12/19 10:50 Aldactone PO 25 mg QDAY ALON Administration Sucralfate 1 gm 06/08/19 10:00 06/12/19 10:50 Carafate PO 1 gm BID ALON Administration Venlafaxine HCl 75 mg 06/08/19 10:00 06/12/19 10:50 Effexor PO 75 mg QDAY ALON Administration
--- NOTE | 2019-06-12 12:47 | Progress Note ---
Assessment and Plan Currently stable cardiac status. Cont present cardiac management. LifeVest is in place. Will plan for EP consultation for AICD candidacy as OP. Follow up in our [place] office with Dr. Peterson Aguirre on 06/18/2019 @ 10:00AM. The patient has been seen in conjunction with Dr. Peterson Aguirre who agrees with the assessment and plan of care. - Patient Problems (1) Acute HFrEF (heart failure with reduced ejection fraction) Current Visit: Yes Status: Acute (2) Cardiomyopathy Current Visit: Yes Status: Chronic Plan to address problem: presumably nonischemic given negative stress test 01/16/2019 (3) Sinus tachycardia Current Visit: Yes Status: Acute (4) Diabetes mellitus with hyperglycemia Current Visit: Yes Status: Acute (5) Anemia Current Visit: Yes Status: Chronic Qualifiers: Anemia type: unspecified type Qualified Code(s): D64.9 - Anemia, unspecified (6) HTN (hypertension) Current Visit: Yes Status: Chronic Qualifiers: Hypertension type: essential hypertension Qualified Code(s): I10 - Essential (primary) hypertension (7) Sleep apnea Current Visit: Yes Status: Chronic (8) GERD (gastroesophageal reflux disease) Current Visit: Yes Status: Chronic Qualifiers: Esophagitis presence: with esophagitis Qualified Code(s): K21.0 - Gastro- esophageal reflux disease with esophagitis (9) Obesity Current Visit: Yes Status: Chronic (10) CKD Current Visit: Yes Status: Chronic (11) NSVT Current Visit: Yes Status: Chronic Subjective Date of service: 06/12/19 Principal diagnosis: CHF exacerbation Interval history: pt resting in bed, no current cardiac complaints. LifeVest in place. in SR with no acute events noted overnight. Objective Last Vital Signs Temp 97.5 F L 06/12/19 07:45 Pulse 94 H 06/12/19 10:50 Resp 18 06/12/19 10:00 BP 121/73 06/12/19 10:50 Pulse Ox 100 06/12/19 03:57 - Physical Examination General: No Apparent Distress HEENT: Positive: PERRL Neck: Positive: neck supple Cardiac: Positive: Reg Rate and Rhythm, S1/S2 Lungs: Positive: Decreased Breath Sounds Neuro: Positive: Grossly Intact Abdomen: Positive: Unremarkable Skin: Positive: Clear Musculoskeletal: Decreased Range of Motion Extremities: Present: +1 Edema (BLE) - Labs and Meds Comprehensive Metabolic Panel 06/11/19 06/12/19 Range/Units 13:15 03:41 Sodium 137 (137-145) mmol/L Potassium 3.6 D 3.9 (3.6-5.0) mmol/L Chloride 99.2 (98-107) mmol/L Carbon Dioxide 18 L D (22-30) mmol/L BUN 31 H (7-17) mg/dL Creatinine 1.2 (0.7-1.2) mg/dL Glucose 207 H (65-100) mg/dL Calcium 9.2 (8.4-10.2) mg/dL - Imaging and Cardiology Echo: report reviewed (01/2019: EF 15 to 20%, moderate MR, mild TR, RVSP 37) - EKG Sinus rhythms and dysrhythmias: sinus rhythm Repolarization changes or abnormalities: nonspecific abnormality, ST segment, and/or T wave (diffuse)
== END 2019-06-12 19:21 | disposition home health service (06) | DRG 189 ==
LOC: ED 20:32 → 4A 23:26
PROVIDERS: ADMIT Internal Medicine; ATTEND Internal Medicine
PROC: 4A033R1 Measurement of Arterial Saturation, Peripheral, Percutaneous Approach (ICD-10-PCS; principal; 2019-06-07)
PROC: 5A09357 Assistance with Respiratory Ventilation, Less than 24 Consecutive Hours, Continuous Positive Airway Pressure (ICD-10-PCS; 2019-06-07)
PROC: 5A09357 Assistance with Respiratory Ventilation, Less than 24 Consecutive Hours, Continuous Positive Airway Pressure (ICD-10-PCS; 2019-06-08)
PROC: 5A09357 Assistance with Respiratory Ventilation, Less than 24 Consecutive Hours, Continuous Positive Airway Pressure (ICD-10-PCS; 2019-06-10)
PROC: 5A09357 Assistance with Respiratory Ventilation, Less than 24 Consecutive Hours, Continuous Positive Airway Pressure (ICD-10-PCS; 2019-06-11)
DX: J96.01 Acute respiratory failure with hypoxia (principal); E66.2 Morbid (severe) obesity with alveolar hypoventilation; E11.65 Type 2 diabetes mellitus with hyperglycemia; K21.9 Gastro-esophageal reflux disease without esophagitis; I13.0 Hypertensive heart and chronic kidney disease with heart failure and stage 1 through stage 4 chronic kidney disease, or unspecified chronic kidney disease; Z68.42 Body mass index [BMI] 45.0-49.9, adult; I42.0 Dilated cardiomyopathy; N18.2 Chronic kidney disease, stage 2 (mild); I50.43 Acute on chronic combined systolic (congestive) and diastolic (congestive) heart failure; R00.0 Tachycardia, unspecified; N17.9 Acute kidney failure, unspecified; E11.22 Type 2 diabetes mellitus with diabetic chronic kidney disease; E87.6 Hypokalemia; E83.42 Hypomagnesemia; E78.5 Hyperlipidemia, unspecified; D63.8 Anemia in other chronic diseases classified elsewhere; E11.40 Type 2 diabetes mellitus with diabetic neuropathy, unspecified; E03.9 Hypothyroidism, unspecified; M19.90 Unspecified osteoarthritis, unspecified site; Z82.49 Family history of ischemic heart disease and other diseases of the circulatory system; Z91.041 Radiographic dye allergy status; Z83.3 Family history of diabetes mellitus; Z79.899 Other long term (current) drug therapy; Z90.710 Acquired absence of both cervix and uterus; Z79.82 Long term (current) use of aspirin; Z87.442 Personal history of urinary calculi
CPT/HCPCS: 36415; 71045; 80048; 82140; 82803; 82962; 83735; 83880; 84132; 84484; 85025; 85027; 87040; 93005; 93010; 93306; 94660; 94760; 96374; 96375; G0378; A9270-GY; J1644; J1815; J1940; J2060; J3475; J3480

== ENCOUNTER 2019-06-20 10:29 | Outpatient (CLI) | payer MEDICAID ==
[2019-06-20 11:07] LABS: Hematocrit 30.3 % (30.3-42.9); Hemoglobin 9.9 gm/dl (10.1-14.3); Mean Corpuscular HGB Conc 33 % (30-34); Mean Corpuscular Volume 100 fl (79-97); Platelet Count 293 K/mm3 (140-440); Red Blood Count 3.03 M/mm3 (3.65-5.03); Red Cell Distribution Width 16.6 % (13.2-15.2)
[2019-06-20 11:22] LABS: Bilirubin,Urine NEG (Negative); Blood,Urine NEG (Negative); Color,Urine Yellow (Yellow); Protein,Urine <15 mg/dL mg/dL (Negative)
[2019-06-20 11:28] LABS: Albumin 3.7 g/dL (3.9-5)
== END 2019-06-20 10:30 | disposition home or self-care (01) ==
LOC: LAB 10:29
PROVIDERS: ATTEND Internal Medicine Nephrology
DX: E08.22 Diabetes mellitus due to underlying condition with diabetic chronic kidney disease (principal); E87.5 Hyperkalemia; N18.3 Chronic kidney disease, stage 3 (moderate)
CPT/HCPCS: 36415; 80048; 81001; 82040; 84100; 85027; 87086

== ENCOUNTER 2020-08-18 09:31 | Day surgery (SDC) | payer MEDICAID ==
[2020-08-18] MEDS ORDERED: SODIUM CHLORIDE 0.9% 1000 ML 1,000 ML ONE (10:59)
[2020-08-18] MEDS ORDERED: SODIUM CHLORIDE 0.9% 1000 ML 1,000 ML IV SCH (11:15)
--- NOTE | 2020-08-18 11:36 | Anesthesia Day of Surgery ---
Anesthesia Day of Surgery - Day of Surgery Patient Examined: Yes Patient H&P Reviewed: Yes Patient is NPO: Yes
--- NOTE | 2020-08-18 11:39 | Anesthesia Consultation ---
Anesthesia Consult and Med Hx Date of service: 08/18/20 - Airway Anesthetic Teeth Evaluation: Good ROM Head & Neck: Adequate Mental/Hyoid Distance: Adequate Mallampati Class: Class II Intubation Access Assessment: Good - Pre-Operative Health Status ASA Pre-Surgery Classification: ASA3 Proposed Anesthetic Plan: MAC - Pulmonary Hx Smoking: Yes (Quit smoking 1994) Hx Asthma: No Hx Respiratory Symptoms: Yes ([place]) SOB: Yes COPD: No Hx Pneumonia: No Hx Sleep Apnea: Yes (5YRS, uses CPAP) - Cardiovascular System Hx Hypertension: Yes Hx Coronary Artery Disease: No Hx Heart Attack/AMI: No Hx Angina: No - Central Nervous System Hx Seizures: No CVA: No Hx Back Pain: Yes Hx Psychiatric Problems: No - Gastrointestinal Hx Gastroesophageal Reflux Disease: Yes (MILD) - Endocrine Hx Renal Disease: Yes (CRI) Hx End Stage Renal Disease: No Hx Liver Disease: No Hx Non-Insulin Dependent Diabetes: Yes (DM perph. neuropathy) Hx Thyroid Disease: Yes Hx Hypothyroidism: Yes - Hematic Hx Anemia: Yes Hx Sickle Cell Disease: No - Other Systems Hx Alcohol Use: No Hx Substance Use: No Hx Cancer: Yes (Breast) Hx Obesity: Yes
[2020-08-18] MEDS ORDERED: propofoL 200 MG/20 ML VIAL IV ONE (13:16)
--- NOTE | 2020-08-18 13:46 | Operative Report ---
Operative Report Operative Report: DOS: 08/18/20 SURGEON: Seamus Caceres MD EGD with biopsy REPORT PREOPERATIVE DIAGNOSIS and POSTOPERATIVE DIAGNOSIS: Iron deficiency anemia ESTIMATED BLOOD LOSS: Minimal DESCRIPTION OF PROCEDURE: A high-resolution EGD scope was passed through the oropharynx, esophagus, stomach, and second portion of duodenum. The scope was carefully withdrawn. Retroflexion was performed in the stomach. At the end of the procedure, the scope was cleaned using normal technique. Vital signs monitored continuously throughout. SEDATION: Provided by [facility]. COMPLICATIONS: None. FINDINGS: * No gross lesions in the entire examined duodenum * Mild gastritis of the stomach, biopsies were taken to rule out H. Pylori infection. A total of 5 biopsies were taken, 2 from the antrum, 1 from the incisura, 2 from the body. * GE junction located 36 cm from incisors * 1 cm hiatal hernia * Possible C0 M1 Lindsey's esophagus. Random four-quadrant biopsies obtained using cold biopsy forceps to rule out Lindsey's esophagus * Remainder of exam was unremarkable RECOMMENDATIONS: * Follow-up pathology results * Patient has an AICD, so we cannot perform an outpatient PillCam. Therefore, recommend continue to monitor iron and hemoglobin, if the drop can try small bowel follow-through or CT enterography to evaluate small valvular lesions, but the sensitivity is lower than PillCam
[2020-08-18 14:48] VITALS: BP 116/55
--- NOTE | 2020-08-18 17:29 | Post Anesthesia Evaluation ---
- Post Anesthesia Evaluation Patient Participated: Yes Airway Patent: Yes Stable Respiratory Function: Yes Nausea/Vomiting: No Temp > 96.8F: Yes Pain Manageable: Yes Adequeate Hydration: Yes Anesthesia Complications: No Block Receding Appropriately: Not Applicable Patient on Ventilator: No
== END 2020-08-18 09:32 | disposition home or self-care (01) ==
LOC: GIO 09:31
PROVIDERS: ATTEND Student in an Organized Health Care Education/Training Program
DX: D50.9 Iron deficiency anemia, unspecified (principal); K44.9 Diaphragmatic hernia without obstruction or gangrene; K21.00 Gastro-esophageal reflux disease with esophagitis, without bleeding; K31.89 Other diseases of stomach and duodenum; I11.0 Hypertensive heart disease with heart failure; I50.21 Acute systolic (congestive) heart failure; E11.65 Type 2 diabetes mellitus with hyperglycemia; E78.00 Pure hypercholesterolemia, unspecified; G47.30 Sleep apnea, unspecified; G62.9 Polyneuropathy, unspecified; E66.9 Obesity, unspecified; I42.9 Cardiomyopathy, unspecified; E03.9 Hypothyroidism, unspecified; Z79.82 Long term (current) use of aspirin; Z88.8 Allergy status to other drugs, medicaments and biological substances; Z79.899 Other long term (current) drug therapy; Z79.4 Long term (current) use of insulin; Z98.41 Cataract extraction status, right eye; Z98.42 Cataract extraction status, left eye; Z90.710 Acquired absence of both cervix and uterus; Z98.51 Tubal ligation status; Z98.890 Other specified postprocedural states; Z91.81 History of falling
CPT/HCPCS: 43239; 82962; 88305; 88342; J2704; J7030

== ENCOUNTER 2021-03-19 08:24 | Outpatient (CLI) | payer MEDICARE ==
--- NOTE | 2021-03-19 13:59 | Mammography Report ---
DIGITAL SCREENING MAMMOGRAM WITH CAD, 03/19/2021 CLINICAL INFORMATION / INDICATION: Routine screening mammography. The patient has a personal history of left breast cancer treated with lumpectomy. TECHNIQUE: Digital bilateral 2D mammography was obtained in the craniocaudal and mediolateral obliqu e projections. This examination was interpreted with the benefit of Computer-Aided Detection analysis . COMPARISON: Bilateral mammogram, 03/12/2019. Left mammogram, 09/17/2018 FINDINGS: Breast Density: There are scattered areas of fibroglandular density. No dominant mass, suspicious calcifications, or architectural distortion in either breast. Stable postlumpectomy findings are again noted in the upper outer left breast. There has been no sign ificant interval change. IMPRESSION: No mammographic evidence of malignancy. Follow up recommendation: Routine yearly BI-RADS Category 2: Benign. A "normal" or negative report should not discourage follow up or biopsy of a clinically significant f inding. A written summary of these findings will be mailed to the patient. The patient will be entered into a mammography reporting system which will generate a reminder letter for the patient's next appointmen t at the appropriate interval. The [employer] recommends yearly mammograms starting at age 40 and continuing as l eliezer as a woman is in good health. Breast MRI is recommended for women with an approximate 20-25% or greater lifetime risk of breast cancer, including women with a strong family history of breast or ova saroj cancer or who have been treated for Hodgkin's disease. Signer Name: Carla Guillaume MD Signed: 03/19/2021 1:54 PM Workstation Name: [id number]
== END 2021-03-19 08:25 | disposition home or self-care (01) ==
LOC: SPVWC 08:24
PROVIDERS: ATTEND Surgery
DX: Z12.31 Encounter for screening mammogram for malignant neoplasm of breast (principal); N64.89 Other specified disorders of breast
CPT/HCPCS: 77067